=== PATIENT | male | born 1940 ===

== ENCOUNTER 2020-04-08 17:08 | Inpatient (IN) | payer MEDICARE ==
[~2020-04-08] VITALS: Ht 167.6 cm; Wt 66.6 kg
[~2020-04-08 17:08] MED LIST: LEVOFLOXACIN500 MG PO
--- NOTE | 2020-04-08 19:01 | NUR ---
PT ARRIVED TO UNIT FROM MED SURG ACCOMPANIED WITH MEDSUR STAFF. HE IS CONFUSED AND VERY DIFFICULT TO UNDERSTAND. HE IS AGGRESSIVE WITH STAFF AT TIMES. HE IS FROM [place] AND FINDS [place]EN[place] DIFFICULT TO UNDERSTAND. HE IS A FULL CODE. HIS CODE WORD IS 2019. HE IS HIS OWN POA. HE IS VERY UNSTEADY ON HIS FEET.
--- NOTE | 2020-04-08 19:57 | NUR ---
PT IS ANXIOUS AND PACING THE HALLS. HE IS AGGRESSIVE WITH REDIRECTION. UNABLE TO REDIRECT. ADMINISTERED PRN HALDOL 2 MG AND ATIVAN 0.5 MG IM PER ORDERS. MONITORING PT FOR FURTHER SAFETY NEEDS.
[2020-04-08 20:00] VITALS: BP 186/62
--- NOTE | 2020-04-08 20:13 | NUR ---
PT REFUSES TO SIGN CONSENT FOR VOLUNTARY CONSENT FOR TREATMENT. INFORMED DR. FUNEZ. DR. FUNEZ STATED "WE WILL NEED TO PLACE ON INVOLUNTARY HOLD." EDUCATED THE PT.
--- NOTE | 2020-04-08 20:45 | NUR ---
PT IS RESTING CALMLY IN BED WITH EYES CLOSED. NO SIGNS OF DISTRESS NOTED. BED ALARM ON AND WORKING.
[2020-04-08 22:16] LABS: BACTERIA FEW HPF (NONE SEEN); BILIRUBIN NEGATIVE (NEGATIVE); KETONE NEGATIVE (NEGATIVE); NITRITE NEGATIVE (NEGATIVE); UROBILINOGEN NORMAL mg/dL (< 2); WHITE CELLS - URINE 0-5 HPF (0-1)
[2020-04-09 06:40] VITALS: BP 156/65; BMI 21.2
[2020-04-09 07:59] LABS: BASOPHILS 0.3 % (0-2); HEMATOCRIT 39.4 % (42.0-54.0); IMMATURE GRANULOCYTES 0.1 % (0-5); LYMPHOCYTE ABS# 0.86 10x3/uL (1.32-3.57); LYMPHOCYTES 9.2 % (15-50); MCH 30.4 pg (26.0-34.0); MCV 92.3 fL (80.0-100.0); MEAN PLATELET VOLUME 9.1 fL (7.4-10.4); MONOCYTES 7.4 % (2-11); NEUTROPHIL ABS# 7.44 10x3/uL (1.78-5.38); PLATELET COUNT 256 10x3/uL (130-400); RBC 4.27 10x6/uL (4.20-6.10); RDW 13.6 % (11.5-14.5)
[2020-04-09 08:00] LABS: WBC 9.3 10x3/uL (4.8-10.8)
[2020-04-09 08:05] LABS: ALBUMIN 3.1 g/dL (3.4-5.0); ALKALINE PHOSPHATASE 82 U/L (30-120); ALT (SGPT) 21 U/L (10-68); BILIRUBIN - TOTAL 0.52 mg/dL (0.2-1.3); CALC OSMOLALITY 286 mosm/kg (275-300); CARBON DIOXIDE 26.5 mmol/L (21.0-32.0); CHLORIDE - SERUM 107 mmol/L (98-107); CHOL - HDL RATIO 3.2 ratio (2.3-4.9); CHOLESTEROL, TOTAL 191 mg/dL (0-200); GLUCOSE 152 mg/dL (74-106); HDL CHOLESTEROL 59 mg/dL (32-96); LDL CHOLESTEROL 116 mg/dL (0-100); POTASSIUM - SERUM 3.2 mmol/L (3.5-5.1); PROTEIN - SERUM 6.4 g/dL (6.4-8.2); SODIUM 142 mmol/L (136-145); THYROID STIMULATING HORMONE 2.83 uIU/mL (0.36-3.74); TRIGLYCERIDE 83 mg/dL (30-200); UREA NITROGEN 16 mg/dL (7-18); eGFR NON AFRICAN AMERICAN 76 mL/min (90-120)
[2020-04-09 08:57] VITALS: BP 165/68
[2020-04-09 09:14] VITALS: Ht 167.6 cm; Wt 66.6 kg
--- NOTE | 2020-04-09 15:15 | NUR ---
PT IS CONFUSED WITH LANGUAGE BARRIER. PT DOES NOT SPEAK ALOT OF ARMENIAN. PT IS ALERT TO SELF. WHEN ASKED QUESTIONS PT BEGINS TO POINT TO HIS HAND AND TELL WHAT HAPPEN TO HIS HAND. NURSE HAS NOT HEARD PT SPEAK ANOTHER LANGUAGE. ATTEMPT TO REDIRECT PT WITH GESTURES. NO AGIATION OR AGGRESSION NOTED. PT IS UNSTEADY. ASSIST STANDBY WITH ALDS. CAN NOT MAKE NEEDS KNOWN. PT IS COMPLIANT WITH MEDS, VITALS AND ASSESSMENTS. FSBS: 128 MG/DL. NURSE HELD EYE CONTACT WHEN SPEAKING WITH PT. PT COOPERATIVES. CHAIR ALARM IN PLACE AND ACTIVE. WILL CONT PLAN OF CARE.
[2020-04-09 20:05] VITALS: BP 175/75
--- NOTE | 2020-04-09 21:46 | NUR ---
213- PATIENT GIVEN PRN, HALDOL AND ATIVAN FOR EXTREME AGITATION, CRYING, TRYING DESPERATELY TO SAYING SOMETHING BUT NOT ABLE, HE WAS RUBBING HIS ARMS WITH HIS HANDS AND LOOKING AT HIS ARMS, IN HIS ROOM HE WAS LOOKING AT THE WINDOW AND SEEMED VERY NERVOUS. NOT ABLE TO CONSOLE. WILL MONITOR FOR EFFECTIVENESS.
--- NOTE | 2020-04-10 00:43 | NUR ---
B)PATIENT SITTING IN THE DAYROOM. MOTIONS FOR YOU TO COME AND SIT BESIDE HIM. ANXIOUS AND SUSPICIOUS. DOES NOT UNDERSTAND THE REASON HE IS IN HERE. RELATED TO NURSE "I WAS FUCKED BY" BROKEN WELSH AND WAS NOT ABLE TO UNDERSTAND THE COMPLETE SENTENCE. NO INTERACTION WITH PEERS BUT WANTS TO SPEAK WITH EACH STAFF MEMBER. I)ADMINISTER MEDS AND MONITOR COMPLIANCE. REASSURE PATIENT AND REORIENT TO THE REASON FOR HOSPITALIZATION. R)MED COMPLIANT. EXPLAINED TO PATIENT THE REASON FOR HOSPITALIZATION IS UTI AND CONFUSION. AND THAT A UTI CAN MAKE YOU CONFUSED. AFTER THE UTI CLEARS HOPEFULLY THE CONFUSION GETS BETTER. PATIENT THANKED NURSE AGAIN AND AGAIN HOWEVER SOON ANOTHER STAFF MEMBER COMES HE WANTS THEM TO SIT AND TALKT TO HIM AGAIN ABOUT BEING HERE AND THE REASON. REMAINS ANXIOUS AND SUSPICIOUS. P)CONTINUE POC AND PROVIDE SAFE ENVIRONMENT.
[2020-04-10 03:07] LABS: RAPID PLASMA REAGIN Non Reactive (Non Reactive)
[2020-04-10 07:32] VITALS: BP 145/64; BP 160/76
--- NOTE | 2020-04-10 09:19 | PSY ---
PATIENT NAME:ALEJANDRA PURVIS MEDICAL RECORD: [id number] : 38 LOCATION:[facility] ADMISSION DATE: 04/08/20 ACCOUNT: [id number] PSYCHIATRIC EVALUATION DATE OF EVALUATION: 04/09/20 IDENTIFYING DATA: The patient is 80 years old and he is admitted to the hospital on an involuntary basis. CHIEF COMPLAINT: Confusion. HISTORY OF PRESENT ILLNESS: The patient initially presented to the Emergency Department on the of this month. At that time, he was suffering from a urinary tract infection, confusion and he was admitted to the hospital. I consulted on him yesterday and he was delusional, disorganized and agitated. I authorized his transfer to [facility] once medically stabilized and he was transferred here, but demanded to leave. He cannot take care of himself. He has no family and his landlord as I understand is not willing to allow him to return. He was subsequently placed on a hold. He also required medication because he was physically aggressive with our staff. He has no real recollection of this. He will answer questions in Hungarian, but then before he gets to the full explanation or answer of the question, he trails off into unrelated topics and then is frustrated because I cannot understand him. This patient's first language is not Hungarian, but he does have a command of the language and the problem is not linguistic it is cognitive. 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 PAST MEDICAL HISTORY: Significant for diabetes and hypertension. PAST PSYCHIATRIC HISTORY: Denied. FAMILY HISTORY: Unknown. SOCIAL HISTORY: The patient does not drink or use drugs. He smoked when he was younger. I do not know how long he has lived in the [place]. He says that he has an ex- and a son who live in [facility]. MENTAL STATUS EXAMINATION: The patient is awake, alert and oriented to person and place, but not time or situation. His mood is flat. His affect is constricted. Thought processes are circumstantial. Memory, concentration and abstraction abilities are impaired. He denies that he would seek to harm himself or others. He denies psychotic symptoms. ASSESSMENT: AXIS I: Major neurovascular cognitive disorder. AXIS II: None. AXIS III: Hypertension, diabetes, urinary tract infection. AXIS IV: Moderate. AXIS V: Global assessment of functioning is 30. PLAN: At this time, the patient is admitted to the hospital secondary to confused and agitated behavior associated with a dementing illness. He will be comprehensively evaluated and treated with both mood stabilizing and memory enhancing medications. His long-term prognosis is guarded. TRANSINT:[id number] Voice Confirmation ID: [id number] DOCUMENT ID: [id number] ALEJANDRA FUNEZ MD at 0919 CC: [id number] DICTATION DATE: 04/09/20 1058 WINDOW GLASS CUTTER OFF: 04/09/20 1113 ADM IN [facility] [address] [place] [address]
--- NOTE | 2020-04-10 16:21 | NUR ---
ALERT, CALM, COOPERATIVE. CONFUSED. HAS DIFFICULTY UNDERSTANDING STAFF REQUESTS DUE TO LANGUAGE BARRIER. VERY UNSTEADY GAIT. OFTEN ARISES WITHOUT ASSISTANCE, REQUIRING CLOSE MONITORING. MEDS ADMIN PER ORDERS WITH COMPLETE MED COMPLIANCE. CONT PLAN OF CARE.
[2020-04-10 20:00] VITALS: BP 177/73
--- NOTE | 2020-04-10 21:15 | NUR ---
B) RECEIVED IN DAYROOM SITTING IN CHAIR. NO BEHAVIORS NOTED. VERY CONFUSED, ALERT TO SELF ONLY. ABLE TO MAKE NEEDS KNOWN. I) ADMINISTERED SCHEDULED MEDICATIONS ORDERED. REDIRECT NEEDED. R) MEDICATION COMPLIANT. HE ASKED TO TAKE A SHOWER TONIGHT. P) WILL CONTINUE POC AND MONITOR FOR SAFETY.
--- NOTE | 2020-04-10 22:00 | NUR ---
RECHECKED B/P= 149/55
--- NOTE | 2020-04-11 09:57 | PN ---
PATIENT:ALEJANDRA PURVIS MEDICAL RECORD: [id number] LOCATION:[facility] ADMISSION DATE: 04/08/20 PROGRESS NOTE DATE OF SERVICE: 04/10/2020 SUBJECTIVE: The patient's case was discussed with staff. He has no new complaint. OBJECTIVE: The patient was agitated last night and required p.r.n. medication. He has almost no insight about his situation. He is participating in treatment minimally. ASSESSMENT: Dementia. PLAN: I am going to discontinue the patient's Trilafon and we will start him on Zyprexa. He will be monitored for clinical changes associated with its use. TRANSINT:[id number] Voice Confirmation ID: [id number] DOCUMENT ID: [id number] ALEJANDRA FUNEZ MD at 0957 CC: [id number] DICTATION DATE: 04/10/20 1024 FRUIT PICKER: 04/10/20 1054 ADM IN [place] [id number] [place] [id number]
[2020-04-11 10:51] VITALS: BP 152/67
--- NOTE | 2020-04-11 14:42 | NUR ---
pt sitting on couch at this time. pt is calm and cooperative. pt does not speak much grenadian. pt can get agitated with lack of understanding. pt is anxious at times. pt is compliant with meds, vitals and assessments. pt has a skin tear noted to L knee. pt can not make some needs known. pt requires assistance with ADLS. chair alarm in place and active. will cont plan of care.
[2020-04-11 20:00] VITALS: BP 182/78
--- NOTE | 2020-04-12 02:16 | NUR ---
B) patient is alert paige oriented to person, very confused and unable to make his needs known at times, I) Administered scheduled medications as orderd, oriented and redirected as needed. R) Medication compliant, ADL independant. P) Continue plan of care.
[2020-04-12 09:56] VITALS: BP 134/67
--- NOTE | 2020-04-12 10:34 | PN ---
PATIENT:ALEJANDRA PURVIS MEDICAL RECORD: [id number] LOCATION:[facility]112 ADMISSION DATE: 04/08/20 PROGRESS NOTE DATE OF SERVICE: 04/11/2020 SUBJECTIVE: The patient's case was discussed with staff. He has no new complaint. OBJECTIVE: The patient is in good behavioral control. He has not been aggressive. ASSESSMENT: Dementia. PLAN: The patient will be started on Namenda for its memory enhancing properties. He will be monitored for clinical changes associated with its use. TRANSINT:[id number] Voice Confirmation ID: [id number] DOCUMENT ID: [id number] ALEJANDRA FUNEZ MD at 1034 CC: [id number] DICTATION DATE: 04/11/20 1010 DIVISION MERCHANDISE MANAGER: 04/11/20 1403 ADM IN [place] [id number] [place] [id number]
--- NOTE | 2020-04-12 16:07 | NUR ---
ALERT, CALM, CONFUSED, QUITE PLEASANT. NO BEHAVIORAL ISSUES NOTED. MEDS ADMIN PER ORDERS WITH COMPLETE MED COMPLIANCE NOTED. PROPELS SELF IN W/C TO BATHROOM, HOWEVER REQUIRES ASSISTANCE WITH TOILETING HYGIENE. CONT POC PREVIOUSLY OUTLINED.
--- NOTE | 2020-04-12 20:20 | NUR ---
RECEIVED IN DAYROOM. SITTING ON THE SOFA WITH PEERS AT HIS SIDE. CALM AND COOPERATIVE WITH CARE AND ASSESSMENT. CONFUSED. CALM AND COOPERATIVE WITH CARE AND ASSESSMENT. CONTINUES TO SIT CALMLY IN DAYROOM. CONTINUE PLAN OF CARE.
[2020-04-12 21:21] VITALS: BP 132/48
--- NOTE | 2020-04-13 10:17 | NUR ---
Nutrition Follow-up: Diet: Diabetic PO intake: ~94% average x last 9 meals recorded Last BM: 04/13/20. Wt: 144.4# (04/12/20); Admit Wt: 143# (04/08/20) Meds noted: SSI. Labs noted: POC Glu 161(H). Recommend continue current diet. RD will follow-up 04/15/20.
--- NOTE | 2020-04-13 13:13 | NUR ---
ORIENTED TO SELF WITH CONFUSION.COMPLIANT WITH STAFF AND MEDS.CAN WALK WITH UNSTEADY GAIT,PROPELLS SELF IN WHEELCHAIR. ORDERED XR OF GROWTH ON LUMBAR AREA,XR DONE,NO RESULTS AT THIS TIME.WILL CONTINUE WITH CURRENT PLAN OF CARE,MONITOR FOR CHANGES AND SAFETY.
--- NOTE | 2020-04-13 14:58 | NUR ---
VISITS.PATIENT STATES HE WANTS TO STAY IN THE HOSPITAL AND BE HELPED WITH HIS PROBLEMS.
--- NOTE | 2020-04-13 15:28 | PN ---
PATIENT:ALEJANDRA PURVIS MEDICAL RECORD: [id number] LOCATION:[facility] ADMISSION DATE: 04/08/20 PROGRESS NOTE DATE OF SERVICE: 04/12/2020 SUBJECTIVE: The patient's case was discussed with staff. He has no new complaint. OBJECTIVE: The patient is in good behavioral control, but seriously and significantly impaired cognitively. He has limited insight about his situation. ASSESSMENT: Dementia. PLAN: Current medicines and therapies have been reviewed. His long-term prognosis is guarded. It appears clear that he cannot live alone. TRANSINT:[id number] Voice Confirmation ID: [id number] DOCUMENT ID: [id number] ALEJANDRA FUNEZ MD at 1528 CC: [id number] DICTATION DATE: 04/12/20 1136 FUR WEIGHER: 04/12/20 1539 ADM IN [place] [id number] [place] [address]
--- NOTE | 2020-04-13 20:08 | NUR ---
RECEIVED IN DAYROOM. SITTING ON THE SOFA WITH PEERS AT HIS SIDE. CALM AND COOPERATIVE WITH CARE AND ASSESSMENT. CONFUSED. REDIRECT AND REORIENT NEEDED. CONTINUES TO SIT CALMLY IN DAYROOM. CONTINUE PLAN OF CARE.
[2020-04-13 20:33] VITALS: BP 158/64
[2020-04-14 08:00] VITALS: BP 148/67
--- NOTE | 2020-04-14 10:15 | NUR ---
PT GAVE DR. FUNEZ VERBAL CONSENT FOR TREATMENT AND FOR PSYCHOTIC MEDICATION ADJUSTMENT IF NEEDED. HE AGREES TO STAY AND BE TREATED BY DR. FUNEZ. VOLUNTARY ADMISSION PAPERWORK WAS SIGNED AND UPDATED IN THE CHART.
--- NOTE | 2020-04-14 12:14 | NUR ---
ALERT, CALM, COOPERATIVE, QUIET, QUITE PLEASANT. MEDS ADMIN PER ORDERS WITH COMPLETE MED COMPLIANCE NOTED. TAKES MEDS WHOLE. APPETITE GOOD. CONT POC DIRECTED.
--- NOTE | 2020-04-14 14:15 | PN ---
PATIENT:ALEJANDRA PURVIS MEDICAL RECORD: [id number] LOCATION:[facility]112 ADMISSION DATE: 04/08/20 PROGRESS NOTE DATE OF SERVICE: 04/13/2020 SUBJECTIVE: The patient's case was discussed with staff. He has no new complaint. OBJECTIVE: The patient is in good behavioral control with limited insight about his situation. ASSESSMENT: Dementia. PLAN: Current medicines have been reviewed and will be maintained. The patient continues to have some significant level of suspicion. I am treating him with a scheduled dose of Geodon and it does seem to have helped some. TRANSINT:[id number] Voice Confirmation ID: [id number] DOCUMENT ID: [id number] ALEJANDRA FUNEZ MD at 1415 CC: [id number] DICTATION DATE: 04/13/20 1634 CAMERA SYSTEMS ENGINEER: 04/13/20 191 ADM IN [facility] [address] [place] [address]
[2020-04-14 20:00] VITALS: BP 144/80
--- NOTE | 2020-04-15 04:19 | NUR ---
B)RECEIVED PATIENT SITTING IN THE DAYROOM. ORIENTED TO SELF ONLY. DOES NOT INTERACT WITH PEERS HOWEVER IS PLEASANT AND APPROPRIATE TOWARD STAFF. I)ADMINISTER MEDS AND MONITOR COMPLIANCE. REORIENT NEEDED. R)MED COMPLIANT. POOR REORIENTATION. DOES NOT APPEAR TO COMPREHEND OR PROCESS THE INFORMATION. P)CONTINUE POC AND PROVIDE SAFE ENVIRONMENT.
[2020-04-15 12:57] VITALS: BP 140/89
--- NOTE | 2020-04-15 14:09 | NUR ---
Nutrition Follow-up: Eating well. Diet: Diabetic PO intake: 92% avg x 9 meals Wt: 144.4# (04/12); 143# (04/08) Labs reviewed Meds noted: Yoni Petty vit D -RD follow-up: 04/22
--- NOTE | 2020-04-15 14:39 | PN ---
PATIENT:ALEJANDRA PURVIS MEDICAL RECORD: [id number] LOCATION:[facility] ADMISSION DATE: 04/08/20 PROGRESS NOTE DATE OF SERVICE: 04/14/2020 SUBJECTIVE: The patient's case was discussed with staff. He has no new complaint. OBJECTIVE: The patient is in good behavioral control, but appears to be a little sedated. ASSESSMENT: Dementia. PLAN: The Geodon the patient is taking will be reduced by 50%. He has poor insight about his behaviors and need for placement. He has no family here. He has spoken to a woman from a [facility] and he seems to be interested in going there. TRANSINT:[id number] Voice Confirmation ID: [id number] DOCUMENT ID: [id number] ALEJANRDA FUNEZ MD at 1439 CC: [id number] DICTATION DATE: 04/14/20 1553 POLICE SUPERINTENDENT: 04/14/20 2301 ADM IN [facility] [address] [place] [address]
--- NOTE | 2020-04-15 15:42 | NUR ---
PT SPOKE WITH MISS MEDRANO TODAY IN EKWOK LANGUAGE. PT STATED PER HER THE HELICOPTER AND HE INIMATED THE HELICOPTER WAS COMING TO DEPORT HIM BACK TO HIS OWN COUNTRY. PT WAS PARANOID ABOUT THE ZORAN-PAD. NURSE ATTEMPTED TO REDIRECT PT BEHAVIOR. UNABLE TO DO SO AT TIME.
--- NOTE | 2020-04-15 16:48 | NUR ---
Rec'd patient up in a w/c this am. He can self propel himself but has very little recall with W/C safty measures. He can cannot recall any given instructions. He is A/O times 1 to person. He is calm and cooperative. He takes his meds whole. Patient has a difficult time relaxing and sitting still. He can be up and down. He had no assessed behaviors. He participated a little in group and activties today.
[2020-04-15 20:00] VITALS: BP 169/55
--- NOTE | 2020-04-16 01:02 | NUR ---
B) Patient is alert and oriented to person, very confused and unable to commuicate in Swazi at times, parinoid and mistrustful. I) Administered scheduled medications as ordered, monitored for safety R) Mediations compliant, sleeping now quietly P) Continue plan of care.
--- NOTE | 2020-04-16 11:50 | NUR ---
The patient is in a w/c, he self propels. He needs assistance to toilet, helped him this am and he defacated in his brief, it was loose, let the charge nurse know. He doesn't speak Colombian well, but he understands. Provide prescribed meds. The patient is compliant with meds. lacrosse coach stated he is paranoid about the helicopters, but he has not made any comments about paranoia today. He has poor insight into his situation. Continue POC.
--- NOTE | 2020-04-16 14:51 | PN ---
PATIENT:ALEJANDRA PURVIS MEDICAL RECORD: [id number] LOCATION:[facility]112 ADMISSION DATE: 04/08/20 PROGRESS NOTE DATE OF SERVICE: 04/15/2020 SUBJECTIVE: The patient's case was discussed with staff. He has no new complaint. He is more awake today. ASSESSMENT: Dementia. PLAN: The patient is rambling and at times incoherent in Croatian. A woman who speaks Thai was here and visited with him and she said that in [place] he is saying some things that sound delusional about guns or helicopters and someone being after him and it really does not make sense. He is not making good sense in Croatian either. I am not sure that it is delusional, but he is from [place] and I know he is accustomed to being frightened of others and authority and really suspect that part of that is what he is experiencing in retrospect now that he is demented. He is going to require 24-hour a day supervision. What is unclear is which setting would be the least restrictive. TRANSINT:[id number] Voice Confirmation ID: [id number] DOCUMENT ID: [id number] ALEJANDRA FUNEZ MD at 1451 CC: [id number] DICTATION DATE: 04/15/20 1622 SURGICAL TECHNOLOGY INSTRUCTOR: 04/16/20 0002 ADM IN [facility] [address] [place] [address]
[2020-04-16 20:00] VITALS: BP 145/36
--- NOTE | 2020-04-16 23:38 | NUR ---
B) Patient is alert and oriented to self, cooperative, became overly concerned about the time on his room clock being wrong. I) Administered scheduled medications as ordered, monitored for safety R) Mediationc compliant, sleeping in his room quietly P) Continue plan of care.
[2020-04-17 10:39] VITALS: BP 125/44
--- NOTE | 2020-04-17 10:42 | NUR ---
The patient is pleasant and calm, he is in a w/c and self propels. He is able to transfer independently. He had a bowel movement in his pants and he was so embarrassed. Staff assisted him to the bathroom and cleaned him up. He is lying on the couch at this time. Provide prescribed meds. The patient is compliant with meds. He has poor insight into his situation. Continue POC.
--- NOTE | 2020-04-17 14:57 | PN ---
PATIENT:ALEJANDRA PURVIS MEDICAL RECORD: [id number] LOCATION:[facility]112 ADMISSION DATE: 04/08/20 PROGRESS NOTE DATE OF SERVICE: 04/16/2020 SUBJECTIVE: The patient's case was discussed with staff. He has no new complaint. OBJECTIVE: The patient is pleasant and cooperative. He has had no behavior problems. I have asked about psychotic symptoms, I am not sure he fully understands that, but he has denied them. ASSESSMENT: Dementia. PLAN: The patient is going to be transitioned out of the hospital soon. He is going to go to a senior care that is actually operated by a Monegasque woman so there will be someone there that can communicate with him effectively. TRANSINT:[id number] Voice Confirmation ID: [id number] DOCUMENT ID: [id number] ALEJANDRA FUNEZ MD at 1457 CC: [id number] DICTATION DATE: 04/16/20 1520 DIRECTOR PHARMACEUTICAL: 04/17/20 0007 ADM IN [facility] [address] [place] [id number]
--- NOTE | 2020-04-17 19:48 | NUR ---
RECEIVED IN DAYROOM. SITTING IN A CHAIR WITH PEERS AT HIS SIDE. CALM AND COOPERATIVE WITH CARE AND ASSESSMENT. CONFUSED. DEMANDING AT TIMES. REDIRECT AND REORIENT NEEDED. CONTINUES TO SIT CALMLY IN DAYROOM. CONTINUE PLAN OF CARE.
[2020-04-17 20:12] VITALS: BP 174/59
--- NOTE | 2020-04-18 09:02 | NUR ---
lisinpril held this am as BP in low range. 113/41
[2020-04-18 09:35] VITALS: BP 113/41
--- NOTE | 2020-04-18 15:19 | NUR ---
The patient is calm and he is pleasant. He has not shown any aggression, he has a difficult time communicating at times, but he has not lost his patience or temper. He tries to ambulate behind his w/c, he needs to be reminded to sit in the chair. Provide prescribed meds. The patient is compliant with meds. He has poor insight into his situation. Continue POC.
[2020-04-18 20:00] VITALS: BP 150/54
--- NOTE | 2020-04-18 21:52 | NUR ---
PT IS ALERT AND ORIENTED TO SELF ONLY. HE HAS A HARD TIME UNDERSTANDING REQUESTS MADE OF HIM. HE IS OBSERVED MAKING JOKES WITH STAFF. USES A WHEELCHAIR TO ASSIST WITH AMBUALTION. COMPLIANT WITH ALL MEDICATIONS. EASY TO REDIRECT.
[2020-04-19 08:57] VITALS: BP 107/67
--- NOTE | 2020-04-19 14:08 | NUR ---
ALERT, CALM, COOPERATIVE, CONFUSED, UNSTEADY GAIT, REQUIRES OCCAIONAL REMINDERS TO NOT AMBULATE UNASSISTED. MEDS ADMIN PER ORDERS WITH COMPLETE MED COMPLIANCE NOTED. PLEASANT MOOD. CONTINUE PLAN OF CARE.
--- NOTE | 2020-04-19 19:48 | NUR ---
RECEIVED IN DAYROOM. SITTING IN A CHAIR WITH PEERS AT HIS SIDE. CALM AND COOPERATIVE WITH CARE AND ASSESSMENT. CONFUSED. REDIRECT AND REORIENT NEEDED. CONTINUES TO SIT CALMLY IN DAYROOM. CONTINUE PLAN OF CARE.
[2020-04-19 20:19] VITALS: BP 101/69
[2020-04-20 08:48] VITALS: BP 163/40
--- NOTE | 2020-04-20 14:47 | NUR ---
ORIENTED TO SELF WITH CONFUSION.IS COMPLIANT WITH STAFF AND MEDS.PROPELLS SELF IN WHEELCHAIR.CAN TRANSFER SELF BUT IS TOO UNSTEADY TO AMBULATE WITHOUT ASSIST.WILL CONTINUE WITH CURRENT PLAN OF CARE,MONITOR FOR CHANGES AND SAFETY.
[2020-04-20 20:21] VITALS: BP 115/74
--- NOTE | 2020-04-20 20:47 | NUR ---
RECEIVED IN DAYROOM. SITTING ON THE SOFA WITH PEERS CLOSED. SMILED AND WAVED AT THIS NURSE WHEN HE CAME INTO ROOM. CALM AND COOPERATIVE WITH CARE AND ASSESSMENT. IN GOOD SPIRITS. REDIRECT AND REORIENT NEEDED. CONTINUES TO SIT CALMLY IN DAYROOM. CONTINUE PLAN OF CARE.
[2020-04-21 10:44] VITALS: BP 119/65
--- NOTE | 2020-04-21 14:25 | PN ---
PATIENT:ALEJANDRA PURVIS MEDICAL RECORD: [id number] LOCATION:[facility]112 ADMISSION DATE: 04/08/20 PROGRESS NOTE DATE OF SERVICE: 04/20/2020 SUBJECTIVE: The patient's case was discussed with staff. He has no new complaint. OBJECTIVE: The patient is in good behavioral control with limited insight about his situation. He is somewhat paranoid, but certainly not disruptive in any appreciable degree. He was sleeping when I came to see him today, but since has aroused and in talking with the nursing staff, they indicate that he was just napping in the afternoon and has not been over sedated in any way. ASSESSMENT: Dementia. PLAN: Hopefully, the patient can be transitioned out of the hospital and to the skilled nursing this week. TRANSINT:[id number] Voice Confirmation ID: [id number] DOCUMENT ID: [id number] ALEJANDRA FUNEZ MD at 1425 CC: [id number] DICTATION DATE: 04/20/20 1633 REGULATORY SUBMISSIONS ASSOCIATE: 04/21/20 0235 ADM IN [facility] [address] [place] [address]
--- NOTE | 2020-04-21 15:09 | NUR ---
ORIENTED TO SELF.SPEAKS BROKEN TURKMEN BUT MAKES NEEDS KNOWN. .COMPLIANT WITH STAFF AND MEDS.PROPELLS SELF IN WHEELCHAIR.NO ADVERSE BEHAVIOR OBSERVED.WILL CONTINUE WITH CURRENT PLAN OF CARE,MONITOR FOR CHANGES AND SAFETY.
--- NOTE | 2020-04-21 19:54 | NUR ---
RECEIVED IN DAYROOM. LAYING ON THE SOFA WITH EYES CLOSED. RESPONDS TO VOICE. CALM AND COOPERATIVE WITH CARE AND ASSESSMENT. CONFUSED BUT IN GOOD SPIRITS. REDIRECT AND REORIENT NEEDED. CONTINUES TO REST QUIETLY ON SOFA. CONTINUE PLAN OF CARE.
[2020-04-21 20:00] VITALS: BP 138/57
[2020-04-22 09:31] VITALS: BP 137/54
--- NOTE | 2020-04-22 13:09 | NUR ---
silk worker spoke with patient and he agreed to go to [facility] place. Lisette came to visit him today and speaks his zuni language. Patient does not have any family or income to support assisted living. Patient stated this was his first choice to go to [facility]. Patient will discharge tomorrow at 11. Lisette stated she would make him a new patient appointment for PCP and set up a pharmacy for patient.Patient declined outpatient services at this time. Patient voiced understanding of discharge for tomorrow and stated he is excited to go to a [facility] home.
--- NOTE | 2020-04-22 14:01 | NUR ---
At approx. 1230, patient came out of the dining room with his voice tone elevated and rambling about discharge, or going home, or something private? It is difficult to understand patient due to his [employer] language and when he is irritated. Many attempts to redirected provided by staff and attempts for his to clarify what he is asking of staff. Patient continued to become irritated and with elevated voice tone and pointing to different staff. Patient finally found a sofa in the dayroom and layed down and fell off to sleep.
--- NOTE | 2020-04-22 14:31 | PN ---
PATIENT:ALEJANDRA PURVIS MEDICAL RECORD: [id number] LOCATION:[facility] ADMISSION DATE: 04/08/20 PROGRESS NOTE DATE OF SERVICE: 04/21/2020 SUBJECTIVE: The patient's case was discussed with staff. He has no new complaint. OBJECTIVE: The patient denies that he would seek to harm himself or others. He is making a number of statements that are poorly connected. He has not been aggressive. He is eating and sleeping well. ASSESSMENT: Dementia. PLAN: Current medicines have been reviewed and will be maintained. I believe he can be transitioned to the prison setting soon. TRANSINT:[id number] Voice Confirmation ID: [id number] DOCUMENT ID: [id number] ALEJANDRA FUNEZ MD at 1431 CC: [id number] DICTATION DATE: 04/21/20 170 ABORIGINAL EDUCATION TEACHER: 04/22/20 0110 ADM IN [facility] [address] [place] [address]
--- NOTE | 2020-04-22 14:41 | NUR ---
Nutrition Follow-up: Diet: Diabetic PO intake: 75-100% x last 9 meals Last BM: 04/21/20. Wt: 147.6# (04/19/20); Admit Wt: 143# (04/08/20) Meds noted: SSI. Labs noted: POC Glu 154(H) Recommend continue current diet. RD will follow-up within 7 days.
[2020-04-22] MEDS ORDERED: LISINOPRIL10 MG PO (15:43)
[2020-04-22] MEDS ORDERED: NAMENDA5 MG PO (15:44)
[2020-04-22] MEDS ORDERED: VITAMIN D PO (15:44)
[2020-04-22] MEDS ORDERED: LIPITOR10 MG PO (15:44)
[2020-04-22] MEDS ORDERED: GEODON20 MG PO (15:44)
[2020-04-22 20:00] VITALS: BP 145/72
--- NOTE | 2020-04-23 00:27 | NUR ---
B)RECEIVED PATIENT SITTING IN THE HALLWAY WITH HIS PEERS. CONFUSED AND DISORIENTED. PLEASANT AND COOPERATIVE. APPRECIATIVE FOR ANYTHING THAT IS DONE FOR HIM. PATIENT KEPT THANKING THE [facility] AFTER HIS SHOWER. SMILING AN HAPPY. I)ADMINISTER MEDS AND MONITOR COMPLIANCE. REORIENT NEEDED. R)MED COMPLIANT. POOR REORIENTATION. PT RELATES TO NURSE HE CAN NOT REMEMBER THINGS. P)CONTINUE POC AND PROVIDE SAFE ENVIRONMENT.
[2020-04-23 09:47] VITALS: BP 116/67
--- NOTE | 2020-04-23 11:17 | NUR ---
PT WAS TO DISCHARGE WITH [facility] THIS SHIFT. PT WAS CALM AND COOPERATIVE UNTIL PT SAW [facility]. PT REFUSED TO GO SCREAMING "NO NO" IN PT COULD NOT EXPLAIN WHY HE DID NOT WANT TO GO. PT REFUSED TO SPEAK TO MISS MEDRANO AND NURSE ABOUT REFUSAL. STAFF ATTEMPTED TO INQUIRY ABOUT WHY PT WOULD NOT GO WITH [facility] AT DISCHARGE. PT COULD NOT EXPRESS REFUSAL AND BEGIN TO ROLL UP ON STAFF IN W/C AND RAISING HANDS YELLING "NO NO NO" PT ATTEMPTED TO EXPLAIN SELF. UNABLE TO EXPLAIN AT THIS TIME. PT REFUSED TO DISCHARGE AT THIS TIME. NOTIFIED RANDY Moreland UTILITY TECH OF REFUSAL TO DISCHARGE.
--- NOTE | 2020-04-23 13:29 | PN ---
PATIENT:ALEJANDRA PURVIS MEDICAL RECORD: [id number] LOCATION:[facility] ADMISSION DATE: 04/08/20 PROGRESS NOTE DATE OF SERVICE: 04/22/2020 SUBJECTIVE: The patient's case was discussed with staff. He has no new complaint. OBJECTIVE: The patient denies that he would seek to harm himself or others. He is tolerating his medicines well. ASSESSMENT: Dementia. PLAN: The patient will be transitioned out of the hospital tomorrow. He is going to go to a care home operated by a [place] couple. Apparently, they have interviewed him, he is willing to go and that is probably a very good placement for him. TRANSINT:[id number] Voice Confirmation ID: [id number] DOCUMENT ID: [id number] ALEJANDRA FUNEZ MD at 1329 CC: [id number] DICTATION DATE: 04/22/20 1543 NEUROPSYCHIATRIC AIDE: 04/22/20 2311 ADM IN [facility] [id number] [place] [address]
--- NOTE | 2020-04-23 16:49 | NUR ---
Rec'd this am up in a W/C. He can self propel with his feet. He is A/O person, and situation, He does have s0me confusion at times. He is difficult to assess with his confusion and language barrier. He became upset this am when his transport facility came to get him. He began to yell at the lady and point his finger at her and it was very difficult to understand what he was saying to her. He did not DC but remained here at the unit. He has sat on the dayroom sofa and had his eyes closed most of the day. He has not participated in any activities or groups today. Staff will continue to encourage him to become involved in activities and redirect and offer positive feedback when he participates.
--- NOTE | 2020-04-23 18:35 | NUR ---
NURSE ASSISTED PT WITH TOILETING. PT SAT ON TOILET WITH BRIEF ON AND GOT UPSET WHEN HE COULD NOT GET OFF THE BRIEF OFF. NURSE DIRECTED PT AT THAT TIME.
[2020-04-23 20:00] VITALS: BP 135/54
--- NOTE | 2020-04-23 20:50 | NUR ---
PT IS ALERT AND ORIENTED TO SELF AND SITUATION. HE IS RECEIVED OUTSIDE THE NURSES STATION IN THE HALLWAY IN A WHEELCHAIR. HE IS CALM AND COOPERATIVE WITH STAFF. COMPLIANT WITH ALL MEDICATIONS. EASY TO REDIRECT.
[2020-04-24 08:09] VITALS: BP 129/60
--- NOTE | 2020-04-24 12:44 | NUR ---
The patient is calm and pleasant, he has not shown any aggression today and he has not shown any agitation. He is calm and he self propels in a w/c. He ambulates for short distances. Dr. Gibbons asked him if he wanted to go to [facility] and he again said "No" He said he likes it here and wants to stay here. Provide prescribed meds. The patient is compliant with meds. Continue POC.
[2020-04-24 20:00] VITALS: BP 145/47; BP 99/48
--- NOTE | 2020-04-24 22:51 | NUR ---
RECEIVED PATIENT IN DAYROOM IN WHEELCHAIR, SITTING CALMLY, NO AGGRESSION, CONFUSED, COMPLIANT WITH MEDS. NO ADVERSE REACTION NOTED. WILL FOLLOW POC
[2020-04-25 14:36] VITALS: BP 141/33
--- NOTE | 2020-04-25 17:19 | NUR ---
PT SITITNG ON COUCH AT THIS TIME. PT IS CALM AND COOPERATIVE WITH STAFF. COMPLIANT WITH MEDS, VITALS AND ASSESSMENTS. NO BEHAVIORS NOTED. CAN MAKE SOME NEEDS KNOWN. PT CAN SELF TOILET. PROPELLS SELF. WILL CONT PLAN OF CARE.
[2020-04-25 20:00] VITALS: BP 113/74
--- NOTE | 2020-04-25 20:20 | NUR ---
RECEIVED IN DAYROOM SITTING ON SOFA, CONFUSED, WITH NO AGGRESSIVE BEHAVIOR NOTED. CALM AND COOPERATIVE WITH ASSESSMENT. WILL CONTINUE TO MONITOR.
[2020-04-26 10:34] VITALS: BP 100/52
--- NOTE | 2020-04-26 18:02 | NUR ---
RECEIVED PATIENT SITTING IN WHEELCHAIR BY NURSES STATION. AWAKE AND ALERT TO PERSON ONLY. CALM AND COOPERATIVE WITH ASSESSMENT. PRESCRIBED MEDICATIONS PROVIDED ORDERED. MED COMPLIANT. NO BEHAVIORS NOTED. FALL PRECAUTIONS IN PLACE FOR SAFETY. WILL CPOC.
[2020-04-26 19:00] VITALS: BP 153/66
--- NOTE | 2020-04-26 21:37 | NUR ---
B)RECEIVED PATIENT LYING IN BED AWAKE. CONFUSED AND DISORIENTED. CALM AND COOPERATIVE. WITHDRAWN AND DOES NOT INTERACT WITH PEERS. APPROPRIATE WITH STAFF. I)ADMINISTER MEDS AND MONITOR COMPLIANCE. REORIENT NEEDED. R)MED COMPLIANT. POOR REORIENTATION RELATED TO IMPAIRED ABILITY TO REATAIN INFORMATION. P)CONTINUE POC AND PROVIDE SAFE ENVIRONMENT.
[2020-04-27 08:00] VITALS: BP 136/47
--- NOTE | 2020-04-27 14:27 | PN ---
PATIENT:ALEJANDRA PURVIS MEDICAL RECORD: [id number] LOCATION:[facility] ADMISSION DATE: 04/08/20 PROGRESS NOTE DATE OF SERVICE: 04/23/2020 SUBJECTIVE: The patient's case was discussed with staff. He has no new complaint. OBJECTIVE: The patient was scheduled for discharge today when the Japanese woman that he has been talking with showed up to transport him. He had a behavioral outburst. It was delusional and agitated and the discharge was canceled. ASSESSMENT: Dementia. PLAN: I have discussed the situation with the treatment team and we are going to report this to adult protective services. They already have an open case with him. If we cannot convince him to go to the assisted living center then it would appear that [facility] would be the least restrictive environment available to him. This is unfortunate since I thought that the long term placement was a good setting for him. TRANSINT:[id number] Voice Confirmation ID: [id number] DOCUMENT ID: [id number] ALEJANDRA FUNEZ MD at 1427 CC: [id number] DICTATION DATE: 04/23/20 1546 SUPERVISOR FRONT: 04/23/202002 ADM IN [facility] [address] [place] [address]
--- NOTE | 2020-04-27 14:34 | NUR ---
ALERT, CALM, CONFUSED, COOPERATIVE. ORIENTED TO PERSON. MEDS ADMIN PER ORDERS WITH COMPLETE MED COMPLIANCE NOTED. TAKES MEDS WHOLE WITHOUT DIFFICULTY. CONT POC OUTLINED.
--- NOTE | 2020-04-27 20:20 | NUR ---
RECEIVED IN DAYROOM. SITTING IN A CHAIR WITH PEERS AT HIS SIDE. CONFUSED. REDIRECT AND REORIENT NEEDED. CONTINUES TO SIT QUIETLY IN DAYROOM. CONTINUE PLAN OF CARE.
[2020-04-27 20:45] VITALS: BP 154/63
[2020-04-28 08:00] VITALS: BP 107/56
--- NOTE | 2020-04-28 14:22 | PN ---
PATIENT:ALEJANDRA PURVIS MEDICAL RECORD: [id number] LOCATION:[facility] ADMISSION DATE: 04/08/20 PROGRESS NOTE DATE OF SERVICE: 04/27/2020 SUBJECTIVE: The patient's case was discussed with staff. He has no new complaint. OBJECTIVE: The patient is partially oriented. He has poor insight about his situation. He is eating and sleeping well. ASSESSMENT: Dementia. PLAN: Current medicines have been reviewed and will be maintained. He can be discharged as soon as placement is arranged. TRANSINT:[id number] Voice Confirmation ID: [id number] DOCUMENT ID: [id number] ALEJANDRA FUNEZ MD at 1422 CC: [id number] DICTATION DATE: 04/27/20 1654 REMOTE SENSING PROGRAM MANAGER: 04/28/20 0058 ADM IN [facility] [id number] [place] [address]
--- NOTE | 2020-04-28 15:57 | NUR ---
Rec'd Patient this am up in a w/c . He is A/O times 1 to person. He is calm and cooperative. He takes his meds whole. No behaviors and prn meds required this day. He has participated in group/activities today minimally. He is planned for DC tomorrow. Discussion with him today in preperation of discharge. change from one envirnment to another.
--- NOTE | 2020-04-28 19:30 | NUR ---
RECEIVED IN DAYROOM. SITTING IN A CHAIR WITH PEERS AT HIS SIDE. IN GOOD SPIRITS. CALM AND COOPERATIVE WITH CARE AND ASSESSMENT. CONFUSED. REDIRECT AND REORIENT NEEDED. CONTINUES TO SIT CALMLY IN DAYROOM. CONTINUE PLAN OF CARE.
[2020-04-28 20:32] VITALS: BP 160/58
[2020-04-29 09:23] VITALS: BP 137/54
--- NOTE | 2020-04-29 10:52 | NUR ---
Nutrition Follow-up: Diet: Diabetic PO intake: 100% x last 9 meals Last BM: 04/28/20 x 2. Wt: 151.2# (04/26/20); Admit Wt: 143# (04/08/20) Meds noted: SSI. Labs noted: POC Glu 153(H) Recommend continue current diet. RD will follow-up within 7 days.
--- NOTE | 2020-04-29 12:42 | NUR ---
NURSE CALLED NEW PRESCRIPTIONS INTO [address] ALL MEDICATIONS CONFIRMED WITH PHARMACIST.
--- NOTE | 2020-04-29 12:47 | NUR ---
Patient rec'd this am up in w/c. He had been self propelling himself with his feet. He is A/O times 1 to person. He took his meds whole without difficulty. He attended group/activities with minimal participation this am. He is scheduled to discharge this afternoon but due to his high anxiety with DC plans to leave hospitial, MD request for patient to have Haldol and Ativan IM given prior to discharge. Today patient is cooperative and after explaining the need for injection, he is fully acceptable for med. Today, he has shown no behaviors, no anger or aggression. He has been fully cooperative with any care..
--- NOTE | 2020-04-29 14:12 | PN ---
PATIENT:ALEJANDRA PURVIS MEDICAL RECORD: [id number] LOCATION:[facility] ADMISSION DATE: 04/08/20 PROGRESS NOTE DATE OF SERVICE: 04/28/2020 SUBJECTIVE: The patient's case was discussed with staff. He has no new complaint. OBJECTIVE: The patient is in good behavioral control, but impaired cognitively. Adult protective services is going to take custody of him if he refuses the placement at the long-term. He will be discharged tomorrow. I have spoken with him about the circumstances and the importance of going to the long-term. I am cautiously optimistic that he will accept the placement since the alternative will be a more restrictive environment. TRANSINT:[id number] Voice Confirmation ID: [id number] DOCUMENT ID: [id number] ALEJANDRA FUNEZ MD at 1412 CC: [id number] DICTATION DATE: 04/28/20 1629 SUPERVISOR TELEPHONE CLERKS: 04/29/20 0102 ADM IN [facility] [address] [place] [address]
--- NOTE | 2020-04-29 14:30 | NUR ---
PT WAS DISCHARGING TO [facility] PLACE THIS SHIFT. PT ALLOWED STAFF 2X TO ASSIST PT INTO CAR. NURSE WENT INTO BUILDING AND NOTED THAT PT GOT OUT OF THE CAR IN THE PARKING LOT AND WALKED BACK INTO THE DOUBLE DOORS AND STARTED YELLING AND YANKING ON THE DOORS OF THE BUILDING. NURSE ATTEMPTED TO SPEAK WITH PT ABOUT WHAT WAS WRONG. PT DID NOT UNDERSTAND WHAT NURSE WAS ASKING. NURSE CASING SOAKER NOTIFIED AND PT LET BACK INTO THE BUILDING. PT WAS FRANTIC YELLING AND UNABLE TO EXPLAIN TO STAFF REASON FOR NOT WANTING TO D/C WITH [facility]. PT CONT TO YELL OUT DURING INTERACTION. NURSE UNABLE TO DETERMINE REASON FOR PT REFUSING TO DISCHARGE AT THIS TIME. APS NOTIFIED OF PT REFUSAL.
--- NOTE | 2020-04-29 15:59 | NUR ---
Staff from "[facility]" came to get patient for discharge and he was escorted to the outside door and then became very angry and told the staff member and hospital staff that he was not going to discharge with this gentleman. Patient has sat on sofa this afternoon and has had his eyes closed. He has been very quite, sleepy, calm and cooperative this afternoon.
[2020-04-29 20:00] VITALS: BP 145/80
--- NOTE | 2020-04-30 04:50 | NUR ---
RECEIVED PATIENT IN DAYROOM SITTING IN WHEELCHAIR CALMLY, PLEASANT, HE IS HARD TO UNDERSTAND (ACCENT). COMPLIANT WITH MEDS, NO ADVERSE REACTION NOTED. WILL FOLLOW POC
[2020-04-30 09:19] VITALS: BP 150/47
--- NOTE | 2020-04-30 14:19 | PN ---
PATIENT:ALEJANDRA PURVIS MEDICAL RECORD: [id number] LOCATION:[facility] ADMISSION DATE: 04/08/20 PROGRESS NOTE DATE OF SERVICE: 04/29/2020 SUBJECTIVE: The patient's case was discussed with staff. He has no new complaint. OBJECTIVE: The patient is in good behavioral control. He denies intent to harm himself or others. He tolerates his medicines well. Unfortunately, he refused the discharge today and became agitated. ASSESSMENT: Dementia. PLAN: The patient is going to be placed in a senior living under APS custody. I think this is unfortunate, but there does not appear to be a reasonable alternative. TRANSINT:[id number] Voice Confirmation ID: [id number] DOCUMENT ID: [id number] ALEJANDRA FUNEZ MD at 1419 CC: [id number] DICTATION DATE: 04/29/20 1627 SENIOR CATEGORY MANAGER: 04/30/20 0128 ADM IN [facility] [address] [place] [address]
--- NOTE | 2020-04-30 17:10 | NUR ---
ORIENTED TO SELF ONLY.ISOLATES.CALM AND COOPERATIVE WITH STAFF AND MEDS.WILL CONTINUE WITH CURRENT PLAN OF CARE,MONITOR FOR CHANGES AND SAFETY.
[2020-04-30 20:00] VITALS: BP 160/49
--- NOTE | 2020-05-01 01:24 | NUR ---
RECEIVED PATIENT IN DAYROOM, HE IS PLEASANT, THANKFUL AND GRATEFUL. COMPLIANT WITH MEDS. WILL FOLLOW POC
--- NOTE | 2020-05-01 11:18 | NUR ---
UPDATE ON DISCHARGE PLANS. PT HAS REFUSED TO GO TO [facility]. APS TYREL WANTED TO DO LAST ATTEMPT BEFORE TAKING CUSTODY. HE IS IN THE PROCESS OF TAKING CUSTODY OF PT NOW. SW HAS REFERRED PT TO [facility] DUE TO SECURE UNIT AND THEIR ABILITY TO HANDLE PT'S INTERMITTENT BEHAVIORS. [facility] HAS BEEN COMPLETED AND SENT IN. WAITING ON COURT HEARING NEXT WEEK.
--- NOTE | 2020-05-01 11:44 | NUR ---
The patient is awake and alert, he is pleasant and calm. He is watching others. He denies SI or HI, he is not suicidal. he told Dr. Gibbons he is willing to go to the residential. He self propels in a w/c. He toilets and feeds himself. provide prescribed meds. The patient is compliant with meds. Continue POC.
[2020-05-01 12:46] VITALS: BP 142/65
--- NOTE | 2020-05-01 23:18 | NUR ---
PT IS ALERT AND ORIENTED TO SELF AND SITUATION. HE IS RECEIVED IN A WHEELCHAIR IN THE DAYROOM. HE IS CALM AND COOPERATIVE WITH STAFF. COMPLIANT WITH ALL MEDICATIONS. EASY TO REDIRECT. REFUSES A SHOWER TONITE. MONITOR FOR SAFETY.
--- NOTE | 2020-05-02 07:26 | PN ---
PATIENT:ALEJANDRA PURVIS MEDICAL RECORD: [id number] LOCATION:[facility] ADMISSION DATE: 04/08/20 PROGRESS NOTE DATE OF SERVICE: 04/30/2020 SUBJECTIVE: The patient's case was discussed with staff. He has no new complaint. OBJECTIVE: The patient is in good behavioral control. He has poor insight about his situation. ASSESSMENT: Dementia. PLAN: The patient will be maintained on current medications. His long-term prognosis is guarded. Hopefully, he can be transitioned to a long-term soon. TRANSINT:[id number] Voice Confirmation ID: [id number] DOCUMENT ID: [id number] ALEJANDRA FUNEZ MD at 0726 CC: [id number] DICTATION DATE: 04/30/201457 ENTRY LEVEL RECEPTIONIST: 04/30/202042 ADM IN [facility] [id number] [place] [address]
[2020-05-02 09:38] VITALS: BP 138/64
--- NOTE | 2020-05-02 14:55 | NUR ---
The patient is awake and he is pleasant. He has poor insight into his situation. He can walk behind his w/c or a walker. He can self propel but he is slow moving, he toilets, transfers, and feeds himself. Provide prescribed meds. The patient is compliant with meds. He has not shown any aggression, no SI or depression. Continue POC.
[2020-05-02 21:45] VITALS: BP 167/49
--- NOTE | 2020-05-02 22:50 | NUR ---
PT IS ALERT AND ORIENTED TO SELF ONLY. WITHDRAWN WITH STAFF. COMPLIANT WITH ALL MEDICATIONS. EASY TO REDIRECT.
[2020-05-03 07:51] VITALS: BP 135/93
--- NOTE | 2020-05-03 08:41 | NUR ---
The patient is awake and he is pleasant, he is quiet and he stays to himself. He self propels in a w/c, although, he can ambulate with standing behind the w/c and he can transfer, toilet, and feed self. He has not shown any aggression this am. Provide prescribed meds. The patient is compliant with meds and he is eating and drinking well. Continue POC.
--- NOTE | 2020-05-03 18:23 | NUR ---
RECEIVED IN DAYROOM. MOVING ABOUT IN A WHEELCHAIR. CALM AND COOPERATIVE WITH CARE AND ASSESSMENT. IN GOOD SPIRITS. CONFUSED. REDIRECT AND REORIENT NEEDED. SITTING CALMLY ON THE SOFA AT THIS TIME CONTINUE PLAN OF CARE.
[2020-05-03 20:04] VITALS: BP 169/47
[2020-05-04 09:33] VITALS: BP 110/87
--- NOTE | 2020-05-04 18:10 | NUR ---
ALERT, CALM, COOPERATIVE, CONFUSED, QUITE POLITE. MEDS ADMIN PER ORDERS WITH COMPLETE MED COMPLIANCE NOTED. NO ADVERSE REACTIONS TO MEDS. NO ADVERSE BEHAVIORS. CONT. POC OUTLINED.
--- NOTE | 2020-05-04 19:56 | NUR ---
RECEIVED IN DAYROOM. SITTING IN A CHAIR WITH PEERS AT HIS SIDE. CALM AND COOPERATIVE WITH CARE AND ASSESSMENT. CONFUSED BUT IN GOOD SPIRITS. SMILES AND GREETS THIS NURSE. REDIRECT AND REORIENT NEEDED. CONTINUES TO SIT CALMLY IN DAYROOM. CONTINUE PLAN OF CARE.
[2020-05-04 20:05] VITALS: BP 145/60
[2020-05-05 09:31] VITALS: BP 129/59
[2020-05-05 14:21] LABS: BASOPHILS 0.6 % (0-2); EOSINOPHILS 5.5 % (0-7); HEMATOCRIT 38.9 % (42.0-54.0); HEMOGLOBIN 12.6 g/dL (13.5-17.5); IMMATURE GRANULOCYTES 0.2 % (0-5); LYMPHOCYTE ABS# 0.63 10x3/uL (1.32-3.57); LYMPHOCYTES 7.2 % (15-50); MCH 30.2 pg (26.0-34.0); MCHC 32.4 g/dL (31.0-37.0); MCV 93.3 fL (80.0-100.0); MEAN PLATELET VOLUME 9.4 fL (7.4-10.4); MONOCYTES 11.3 % (2-11); NEUTROPHIL ABS# 6.63 10x3/uL (1.78-5.38); NEUTROPHILS 75.2 % (40-80); PLATELET COUNT 302 10x3/uL (130-400); RBC 4.17 10x6/uL (4.20-6.10); RDW 13.2 % (11.5-14.5); WBC 8.8 10x3/uL (4.8-10.8)
--- NOTE | 2020-05-05 17:54 | NUR ---
ALERT, CALM, COOPERATIVE, QUIET, APPRECIATIVE OF CARE. MEDS ADMIN PER ORDERS WITH COMPLETE MED COMPLIANCE NOTED. NO ADVERSE REACTION TO MEDS. CONT POC DIRECTED.
[2020-05-05 20:12] VITALS: BP 129/57
--- NOTE | 2020-05-05 20:12 | NUR ---
RECEIVED IN DAYROOM. SITTING IN A CHAIR WITH PEEERS AT HIS SIDE. CALM AND COOPERATIVE WITH CARE AND ASSESSMENT. CONFUSED. REDIRECT AND REORIENT NEEDED. CONTINUES TO SIT CALMLY IN DAYROOM. CONTINUE PLAN OF CARE.
[2020-05-06 09:59] VITALS: BP 119/70
--- NOTE | 2020-05-06 12:00 | NUR ---
RECEIVED IN PATIENT ROOM. RESTING IN BED WITH EYES CLOSED. CALM AND COOPERATIVE WITH CARE AND ASSESSMENT. PLEASANTLY CONFUSED. WITHDRAWN AND ISOLATES SELF. REDIRECT AND REORIENT NEEDED. EATING LUNCH AT THIS TIME. CONTINUE PLAN OF CARE.
--- NOTE | 2020-05-06 16:47 | NUR ---
Nutrition Follow-up: Diet: Diabetic PO intake: ~86% average x last 9 meals Last BM: 04/30/20 x 3. Wt: 146.4# (05/03/20); Admit Wt: 143# (04/08/21) Meds noted: miralax, SSI. Labs noted: POC Glu 160(H). Recommend continue bowel regimen to promote BM regularity and help preserve appetite. Recommend continue current diet. RD will follow-up within 7 days.
[2020-05-06 20:00] VITALS: BP 143/47
--- NOTE | 2020-05-06 23:23 | NUR ---
PT IS ALERT AND ORIENTED TO SELF ONLY. RECEIVED IN DAYROOM. SELF-ISOLATING AND WITHDRAWN. COMPLIANT WITH ALL MEDICATIONS. COOPERATIVE WITH STAFF. MONITOR FOR SAFETY.
[2020-05-07 09:03] VITALS: BP 145/51
--- NOTE | 2020-05-07 12:09 | NUR ---
Patient rec'd up in a W/C this am. He is A/O times 1 to person and orinetation to his place is often confusing at times as he has difficulty expressing and understanding due to his languagage barrier. He takes meds whole without diff. He has been calm and coorp. today without any behs. of confusion. He does tend to self-isolate himself from the others in group or activities. He will eat fast with the others and then leave the area. Plans to DC soon. Will continue to encourage him to participate with others in groups/activities.
[2020-05-07 20:07] VITALS: BP 141/55
--- NOTE | 2020-05-07 22:43 | NUR ---
PT IS ALERT AND ORIENTED TO SELF ONLY. RECEIVED IN DAYROOM SELF-PROPELLING IN A WHEELCHAIR. CALM AND COOPERATIVE WITH STAFF. COMPLIANT WITH ALL MEDICATIONS. EASY TO REDIRECT. MONITOR FOR SAFETY.
--- NOTE | 2020-05-08 08:21 | NUR ---
The patient is awake and alert, she is sleepy, but she answers questions appropriately. She keeps her eyes closed a lot. She has not shown aggression this am. She is calm, but has a flat to blunted affect. She ambulates, toilets, and feeds herself. Provide prescribed meds. The patient is compliant with meds. She has poor insight into her situation. Continue POC.
[2020-05-08 09:55] VITALS: BP 123/54
--- NOTE | 2020-05-08 10:18 | NUR ---
The patient is awake and he is pleasant. He has poor short term memory recall, He has poor insight into his situation. He has not shown any aggression this am, he is unsteady. He self propels in a w/c, but he has a difficult time. He sometimes walks behind the w/c. He has poor balance. Provide prescribed meds. The patient is compliant with meds. He is sleepy this am, he watches the groups and sometimes participates in the activities. Continue POC.
[2020-05-08 20:00] VITALS: BP 153/63
--- NOTE | 2020-05-08 23:49 | NUR ---
PATIENT RECEIVED IN DAYROOM IN WHEELCHAIR, CALM, COMPLIANT WITH MEDS. HE SEEMS A LITTLE MORE "NEEDY" THE LAST TWO EVENINGS SUCH NEEDING TO BE PUSHED AROUND IN WHEELCHAIR OR HELP GETTING UP AND DOWN. WILL FOLLOW POC
--- NOTE | 2020-05-09 07:37 | NUR ---
NURSE REPORTED TO DR. PRADO INCREASED WEAKNESS NOTED IN PT. NEW ORDER: PHYSICAL THERAPY CONSULT. ORDER PUT INTO COMPUTER PER NURSE.
--- NOTE | 2020-05-09 08:17 | NUR ---
NURSE WENT INTO PT ROOM DUE TO PT EXCESSIVE TALKING OUT LOUD. URINE NOTED TO FLOOR AND ON PT W/C. NURSE CLEANED FLOOR AND CHAIR. NURSE GAVE PT CLOTHES. PT REFUSED TO PUT CLOTHES ON. NURSE REPORTED TO DR. PRADO NEW ORDER FOR: CMP, BMP. ORDERS IN THE COMPUTER WILL CONT TO MONITOR.
[2020-05-09 08:23] VITALS: BP 121/54
[2020-05-09 09:30] LABS: ALBUMIN 3.1 g/dL (3.4-5.0); ANION GAP 13.5 mmol/L (8-16); BILIRUBIN - TOTAL 0.27 mg/dL (0.2-1.3); CALCIUM 8.7 mg/dL (8.5-10.1); CARBON DIOXIDE 23.4 mmol/L (21.0-32.0); CREATININE - SERUM 1.1 mg/dL (0.6-1.3); POTASSIUM - SERUM 3.9 mmol/L (3.5-5.1); PROTEIN - SERUM 6.6 g/dL (6.4-8.2)
--- NOTE | 2020-05-09 10:41 | NUR ---
The patient is showing weakness today, he says he does not feel well. He says he feels weaker. His blood pressure is low, held his blood pressure meds. He self propels in a w/c, but he has great difficulty propelling. He can transfer with assist. He can ambulate with staff stand by. Provide prescribed meds. The patient is compliant with meds. Monitor his mood and behavior. Continue POC.
[2020-05-09 20:00] VITALS: BP 137/58
--- NOTE | 2020-05-09 23:58 | NUR ---
RECEIVED PATIENT IN DAYROOM, CALM, STAYS TO HIMSELF. CONFUSED. COMPLIANT WITH MEDS. WILL FOLLOW POC
[2020-05-10 09:56] VITALS: BP 102/52
--- NOTE | 2020-05-10 14:00 | NUR ---
RECEIVED IN HALLWAY OUTSIDE OF NURSES STATION. CALM AND COOPERATIVE WITH CARE AND ASSESSMENT. WITHDRAWS AND ISOLATES SELF. CONFUSED. REDIRECT AND REORIENT NEEDED. SITTING IN GROUP AT THIS TIME. CONTINUE PLAN OF CARE.
--- NOTE | 2020-05-10 15:55 | NUR ---
ANGELI FROM LAB CALLED TO NOTIFY THIS NURSE THAT PATIENT IS COVID POSITIVE. PATIENT MOVED FROM DAY ROOM TO PATIENT ROOM. DROPLET ISOLATION PRECAUTIONS INITIATED. DR PRADO NOTIFIED. CLINICAL STAFF ANESTHESIOLOGIST NOTIFIED. CLINICAL STAFF ANESTHESIOLOGIST STATED SHE WILL NOTIFY INFECTION CONTROL.
[2020-05-10 15:57] LABS: SARS-CoV-2 ANTIGEN POSITIVE- SARS-COV-2 (NEGATIVE)
[2020-05-10 22:12] VITALS: BP 120/49
--- NOTE | 2020-05-10 23:01 | NUR ---
RECEIVED IN BEDROOM. RESTING QUIETLY IN BED WITH EYES CLOSED. YELLED OUT DURING CARE BUT REDIRECTED WITHOUT ISSUE. NO SIGNS OF AGGRESSION. REDIRECT AND REORIENT NEEDED. RESTING IN BED WITH EYES CLOSED AT THIS TIME. CONTINUE PLAN OF CARE.
[2020-05-11 10:14] VITALS: BP 83/40
--- NOTE | 2020-05-11 16:56 | NUR ---
RECEIVED IN PATIENT ROOM. RESTING IN BED WITH EYES OPEN. CALM AND COOPERATIVE WITH CARE AND ASSESSMENT. CONFUSED. DEMANDING AT TIMES. YELLS AT STAFF AT TIMES. EASILY AGITATED. REDIRECT AND REORIENT NEEDED. RESTING IN BED AT THIS TIME. CONTINUE PLAN OF CARE.
[2020-05-11 20:45] VITALS: BP 165/69
--- NOTE | 2020-05-11 22:30 | NUR ---
RECEIVED IN BEDROOM. YELLING OUT WHEN ASSISTED BY [facility]. INCREASING AGITATIO AND ANXIETY. UNABLE TO REDIRECT OR REORIENT. PRN ATIVAN 0.5 MG IM GIVEN FOR ANXIETY AT 2100 AND PRN HALDOL 2 MG IM GIVEN FOR UNSAFE PSYCHOTIC BEHAVIOR AT 2100. RESTING IN BED WITH EYES CLOSED AT THIS TIME. CONTINUE PLAN OF CARE. .
[2020-05-12 08:00] VITALS: BP 141/72
--- NOTE | 2020-05-12 14:38 | NUR ---
Rec'd patient this am sitting up on the side of the bed. Patient seems aggitated this am, confused, and requesting the door to be shut and for the nurse to get out by waving his arm in the air in a motion to get out. He is A/O times 1 to person. He is easily aggitated. He has been compliant with medication and took meds whole. He is unsteady on his feet and has an unbalanced gait. He is a big fall risk. This nurse attempted to review fall precautions for one to one education and he participated very little. New meds started today.Awaiting covid testing results. He is often given positive feedback and encouragement for any participation in group or educational needs.
--- NOTE | 2020-05-12 16:10 | PN ---
PATIENT:ALEJANDRA PURVIS MEDICAL RECORD: [id number] LOCATION:[facility] ADMISSION DATE: 04/08/20 PROGRESS NOTE DATE OF SERVICE: 05/11/2020 SUBJECTIVE: The patient's case was discussed with staff. He has no new complaint. OBJECTIVE: The patient is in good behavioral control. He has poor insight about his situation. ASSESSMENT: Dementia. PLAN: The patient can be transitioned to the alf as soon as arrangements are made. TRANSINT:[id number] Voice Confirmation ID: [id number] DOCUMENT ID: [id number] ALEJANDRA FUNEZ MD at 1610 CC: [id number] DICTATION DATE: 05/11/20 1601 SAND DIGGER: 05/12/20 0020 ADM IN [place] [id number] [place] [address]
--- NOTE | 2020-05-12 16:22 | NUR ---
Patient was yelling when nurse entered room and he was sitting on the floor between the bed and the bathroom entrance. He states he "sat down" on the floor. He had been to the restroom and there was a few areas of bowel on the floor. He denies pain or discomfort. There is an area of brown discoloration to his right hip area but he shows no signs of pain when assessed by nurse. He was placed on the bed and he layed down and is lying there quiet with eyes closed.
[2020-05-12 22:30] VITALS: BP 173/59
--- NOTE | 2020-05-13 01:45 | NUR ---
RECEIVED IN BEDROOM. EASILY AGITATED. YELLS OUT AT STAFF. CAN BE DIFFICULT TO REDIRECT AT TIMES. CALM AND COOPERATIVE WITH ASSESSMENT. CONFUSED. REDIRECT AND REORIENT NEEEDED. RESTING QUIETLY IN BED AT THIS TIME. CONTINUE PLAN OF CARE.
--- NOTE | 2020-05-13 08:50 | PN ---
PATIENT:ALEJANDRA PURVIS MEDICAL RECORD: [id number] LOCATION:[facility] ADMISSION DATE: 04/08/20 PROGRESS NOTE DATE OF SERVICE: 05/12/2020 SUBJECTIVE: The patient's case was discussed with staff. He has no new complaint. OBJECTIVE: The patient is in good behavioral control. He has limited insight about his situation. ASSESSMENT: Dementia. PLAN: The patient will be maintained on current medicines and will be transitioned to the [facility] as soon as the financial piece of his placement is arranged. TRANSINT:[id number] Voice Confirmation ID: [id number] DOCUMENT ID: [id number] ALEJANDRA FUNEZ MD at 0850 CC: [id number] DICTATION DATE: 05/12/20 162 TUNNEL MINER: 05/13/20 0149 ADM IN [facility] [address] [place] [address]
[2020-05-13 08:54] VITALS: BP 155/47
--- NOTE | 2020-05-13 09:30 | NUR ---
Nutrition Follow-up: Covid+, currently asymptomatic. Loose stools -per MD notes Diet: Diabetic PO intake: ~56% average x last 9 meals Last BM: 05/12/20. Wt: 146.6# (05/10/20); Admit Wt: 143# (05/09/20) Meds noted: probiotics, zithromax, miralax (on hold), SSI, vit D Labs noted: POC Glu 126(H) Recommend continue current diet. Offer oral nutrition supplements if PO intake <65% of meals. RD will follow-up within 7 days.
[2020-05-13 20:00] VITALS: BP 127/55
--- NOTE | 2020-05-14 01:03 | NUR ---
B)RECEIVED PATIENT LYING IN HIS BED. ORIENTED TO SELF ONLY. NO INSIGHT INTO THE REASON HE IS HERE. WITHDRAWN. DOES NOT WANT ANYONE DOING ANYTHING WITH HIM. WHEN EXPLAINED TO PATIENT HE IS (+) FOR THE COVID VIRUS HE NODDED HIS HEAD YES. REMAINS ON DROPLET PRECAUTIONS. I)ADMINISTER MEDS AND MONITOR COMPLIANCE. REORIENT NEEDED. R)MED COMPLIANT. POOR REORIENTATION DUE TO IMPAIRED ABILITY TO RETAIN INFORMATION. P)CONTINUE POC AND PROVIDE SAFE ENVIRONMENT.
[2020-05-14 08:53] VITALS: BP 145/92
--- NOTE | 2020-05-14 14:22 | PN ---
PATIENT:ALEJANDRA PURVIS MEDICAL RECORD: [id number] LOCATION:[facility] ADMISSION DATE: 04/08/20 PROGRESS NOTE DATE OF SERVICE: 05/13/2020 SUBJECTIVE: The patient's case was discussed with staff. He has no new complaint. OBJECTIVE: The patient is calm and cooperative, but only oriented to person. Apparently, he was significantly agitated last night, but did not require p.r.n. medication. ASSESSMENT: Dementia. PLAN: The patient is in need of placement. He may be discharged as soon as that is arranged. TRANSINT:[id number] Voice Confirmation ID: [id number] DOCUMENT ID: [id number] ALEJANDRA FUNEZ MD at 1422 CC: [id number] DICTATION DATE: 05/13/20 173 CENTER MEDICAL AND LAB DIRECTOR: 05/13/20 2254 ADM IN [place] [id number] [place] [address]
--- NOTE | 2020-05-14 18:16 | NUR ---
ALERT, CALM, QUIET THIS SHIFT, APPETITE POOR AT MEALTIMES. MEDS ADMIN PER ORDERS WITH COMPLETE MED COMPLIANCE NOTED. NO ADVERSE REACTION TO MEDS. CONT. PLAN OF CARE PREVIOUSLY OUTLINED.
[2020-05-14 20:00] VITALS: BP 187/90
--- NOTE | 2020-05-15 01:13 | NUR ---
B) Patient is alert and oriented to self, calm and cooperative, I) Administered scheduled medications as ordered, maintained isolation protocols, monitored for safety R) Medication and isolation compliant, follows instructions P) Continue plan of care.
[2020-05-15 08:27] VITALS: BP 145/57
[2020-05-15 11:41] LABS: BASOPHILS 0.2 % (0-2); EOSINOPHILS 2.9 % (0-7); HEMATOCRIT 40.8 % (42.0-54.0); HEMOGLOBIN 13.3 g/dL (13.5-17.5); IMMATURE GRANULOCYTES 0.2 % (0-5); LYMPHOCYTE ABS# 0.33 10x3/uL (1.32-3.57); MCH 29.9 pg (26.0-34.0); MCHC 32.6 g/dL (31.0-37.0); MCV 91.7 fL (80.0-100.0); MEAN PLATELET VOLUME 9.4 fL (7.4-10.4); MONOCYTES 10.9 % (2-11); NEUTROPHIL ABS# 4.37 10x3/uL (1.78-5.38); NEUTROPHILS 79.8 % (40-80); PLATELET COUNT 274 10x3/uL (130-400); RBC 4.45 10x6/uL (4.20-6.10); RDW 12.9 % (11.5-14.5); WBC 5.5 10x3/uL (4.8-10.8)
[2020-05-15 12:10] LABS: ALBUMIN 2.7 g/dL (3.4-5.0); ANION GAP 12.6 mmol/L (8-16); BILIRUBIN - TOTAL 0.31 mg/dL (0.2-1.3); CALCIUM 8.4 mg/dL (8.5-10.1); CARBON DIOXIDE 23.2 mmol/L (21.0-32.0); CREATININE - SERUM 1.1 mg/dL (0.6-1.3); POTASSIUM - SERUM 3.8 mmol/L (3.5-5.1); PROTEIN - SERUM 6.3 g/dL (6.4-8.2)
[2020-05-15 23:02] VITALS: BP 116/59
--- NOTE | 2020-05-15 23:56 | NUR ---
PT IS ALERT AND ORIENTED TO SELF ONLY. HE IS WITHDRAWN AND SELF ISOLATING. COMPLIANT WITH ALL MEDICATIONS. MONITOR FOR SAFETY.
[2020-05-16 09:46] VITALS: BP 140/70
--- NOTE | 2020-05-16 11:10 | NUR ---
The patient is awake and alert, he is in his room on isolation. He has not shown any aggression, he is confused, but he is pleasant. He has poor insight into his situation, he has left sided weakness and he is getting weaker in strength. He is able to stand and transfer, but needs help at times. He is quiet and has a blunted affect. It is difficult to communicate with him as he has had a stroke and also there is a language difference. He can answer "Yes, and No." Monitor his mood and behavior. Continue POC.
[2020-05-16 22:00] VITALS: BP 130/85
[2020-05-16 22:14] VITALS: BP 138/72
--- NOTE | 2020-05-16 23:18 | NUR ---
B) patient is alert and oriented to person, calm with a blunted affect, I) Administered scheduled medications as ordered, monitored for safety R) Mediation compliant, no aggression, pleasant and says 'Thank you' frequently. P) Continue plan of care.
[2020-05-17 09:39] VITALS: BP 158/66
--- NOTE | 2020-05-17 14:57 | NUR ---
The patient is quiet and he is on isolation, he does seem to like being in the room as he is not one to socialize. He is weak, but he has left side weakness. He was able to transfer and walk, but he is having great difficulty now. Provide prescribed meds. The patient is compliant with meds. The patient has poor insight into his situation. Continue POC.
--- NOTE | 2020-05-17 19:31 | NUR ---
RECEIVED IN BEDROOM. RESTING QUIETLY WITH EYES OPEN. CALM AND COOPERATIVE WITH CARE AND ASSESSMENT. CONFUSED. REDIRECT AND REORIENT NEEDED. CONTINUES TO REST QUIETLY IN BED. CONTINUE PLAN OF CARE.
[2020-05-17 21:34] VITALS: BP 136/55
[2020-05-18 08:59] VITALS: BP 144/70
--- NOTE | 2020-05-18 14:06 | PN ---
PATIENT:ALEJANDRA PURVIS MEDICAL RECORD: [id number] LOCATION:[facility] ADMISSION DATE: 04/08/20 PROGRESS NOTE DATE OF SERVICE: 05/14/2020 SUBJECTIVE: The patient's case was discussed with staff. He has no new complaint. OBJECTIVE: The patient is in good behavioral control. He has limited insight. ASSESSMENT: Dementia. PLAN: The patient will be discharged as soon as placement is arranged. TRANSINT:[id number] Voice Confirmation ID: [id number] DOCUMENT ID: [id number] ALEJANDRA FUNEZ MD at 1406 CC: [id number] DICTATION DATE: 05/14/20 1624 NATIONAL INSURANCE OFFICER: 05/14/204 ADM IN [place] [id number] [place] [address]
--- NOTE | 2020-05-18 17:30 | NUR ---
RECEIVED IN PATIENT ROOM. RESTING IN BED WITH EYES CLOSED. CALM AND COOPERATIVE WITH CARE AND ASSESSMENT. NO BEHAVIORS NOTED. REDIRECT AND REORIENT NEEDED. EATING AT DINNER AT THIS TIME. CONTINUE PLAN OF CARE.
--- NOTE | 2020-05-18 19:27 | NUR ---
RECEIVED IN BEDROOM. RESTING IN BED WITH EYES OPEN. CALM AND COOPERATIVE WITH CARE AND ASSESSMENT. NO SIGNS OF AGGRESSION. REDIRECT AND REORIENT NEEDED. CONTINUES TO REST QUIETLY IN BEDROOM. CONTINUE PLAN OF CARE.
[2020-05-18 21:21] VITALS: BP 151/58
[2020-05-19 08:38] VITALS: BP 130/68
--- NOTE | 2020-05-19 13:55 | PN ---
PATIENT:ALEJNADRA PURVIS MEDICAL RECORD: [id number] LOCATION:[facility] ADMISSION DATE: 04/08/20 PROGRESS NOTE DATE OF SERVICE: 05/18/2020 SUBJECTIVE: The patient's case was discussed with staff. He has no new complaint. OBJECTIVE: The patient is positive for COVID, but has no serious symptoms associated with it at this point. His pulse oximetry is normal and his vital signs are acceptable. ASSESSMENT: Dementia. PLAN: The patient is going to be maintained on current medicines and can be transitioned out of the hospital as soon as placement is arranged. TRANSINT:[id number] Voice Confirmation ID: [id number] DOCUMENT ID: [id number] ALEJANDRA FUNEZ MD at 1355 CC: [id number] DICTATION DATE: 05/18/20 1421 HEAD LINEMAN: 05/18/20 2250 ADM IN [place] [id number] [place] [id number]
--- NOTE | 2020-05-19 17:30 | NUR ---
RECEIVED IN PATIENT ROOM. CALM AND COOPERATIVE WITH CARE AND ASSESSMENT. CONFUSED. BECOMES EASILY AGITATED AT TIMES. REDIRECT AND REORIENT NEEDED. EATING DINNER AT THIS TIME. CONTINUE PLAN OF CARE.
[2020-05-19 20:00] VITALS: BP 158/66
--- NOTE | 2020-05-19 20:20 | NUR ---
RECEIVED IN BEDROOM. RESTING QUIETLY WITH EYES CLOSED. CALM AND COOPERATIVE WITH CARE AND ASSESSMENT. CONFUSED. REDIRECT AND REORIENT NEEDED. CONTINUES TO REST QUIETLY IN BED. CONTINUE PLAN OF CARE.
--- NOTE | 2020-05-20 10:10 | PN ---
PATIENT:ALEJANDRA PURVIS MEDICAL RECORD: [id number] LOCATION:[facility] ADMISSION DATE: 04/08/20 PROGRESS NOTE DATE OF SERVICE: 05/19/2020 SUBJECTIVE: The patient's case was discussed with staff. OBJECTIVE: The patient's clinical condition is unchanged. ASSESSMENT: Dementia. PLAN: The patient may be transitioned out of the hospital as soon as arrangements are made. TRANSINT:[id number] Voice Confirmation ID: [id number] DOCUMENT ID: [id number] ALEJANDRA FUNEZ MD at 1010 CC: [id number] DICTATION DATE: 05/19/20 1720 DIGITAL PHOTO PRINTER: 05/19/20 2320 ADM IN [place] [id number] [place] [id number]
--- NOTE | 2020-05-20 14:48 | NUR ---
Nutrition Follow-up: Eating well. Diet: Diabetic PO intake: 97% avg x 9 meals Wt: 146.6# (05/10); 144.4# (04/12) Last BM: 05/18 Labs noted: Glu 133 Meds noted: Humalog, vit D -RD follow-up: 05/27
--- NOTE | 2020-05-20 17:30 | NUR ---
RECEIVED IN PATIENT ROOM. CALM AND COOPERATIVE WITH CARE AND ASSESSMENT. CONFUSED. CAN BECOME EASILY AGITATED WITH STAFF AT TIMES. REDIRECT AND REORIENT NEEDED. EATING DINNER AT THIS TIME. CONTINUE PLAN OF CARE.
[2020-05-20 20:00] VITALS: BP 125/55
--- NOTE | 2020-05-20 23:11 | NUR ---
B) Patient is alert and oriented to self, difficulty expressing himself at times, I) Administered scheduled medications as ordered, monitored for safety R) Medication compliant, preferres to be left alone P) Continue plan of care.
[2020-05-21 08:55] LABS: ALBUMIN 2.9 g/dL (3.4-5.0); ALKALINE PHOSPHATASE 77 U/L (30-120); ALT (SGPT) 34 U/L (10-68); BILIRUBIN - TOTAL 0.37 mg/dL (0.2-1.3); CALC OSMOLALITY 281 mosm/kg (275-300); CALCIUM 8.4 mg/dL (8.5-10.1); CARBON DIOXIDE 27.5 mmol/L (21.0-32.0); CHLORIDE - SERUM 103 mmol/L (98-107); POTASSIUM - SERUM 3.9 mmol/L (3.5-5.1); PROTEIN - SERUM 5.8 g/dL (6.4-8.2); SODIUM 138 mmol/L (136-145); UREA NITROGEN 17 mg/dL (7-18); eGFR NON AFRICAN AMERICAN 76 mL/min (90-120)
[2020-05-21 08:56] LABS: GLUCOSE 174 mg/dL (74-106)
[2020-05-21 09:16] LABS: HEMATOCRIT 38.2 % (42.0-54.0); HEMOGLOBIN 12.6 g/dL (13.5-17.5); LYMPHOCYTES 7.4 % (15-50); MCH 29.9 pg (26.0-34.0); MCV 90.5 fL (80.0-100.0); MEAN PLATELET VOLUME 9.3 fL (7.4-10.4); RBC 4.22 10x6/uL (4.20-6.10); RDW 12.7 % (11.5-14.5); WBC 5.6 10x3/uL (4.8-10.8)
[2020-05-21 09:20] LABS: PLATELET COUNT 203 10x3/uL (130-400)
--- NOTE | 2020-05-21 09:45 | NUR ---
NURSE NOTIFIED DR. PRADO IN REGARDS TO PT LABS AND CLARIFY ROCEPHIN ORDER. CONTINUE ROCEPHIN 3X DAYS. LABS WITHIN NORMAL LIMITS.
[2020-05-21 14:29] VITALS: BP 142/38
--- NOTE | 2020-05-21 15:17 | PN ---
PATIENT:ALEJANDRA PURVIS MEDICAL RECORD: [id number] LOCATION:[facility] ADMISSION DATE: 04/08/20 PROGRESS NOTE DATE OF SERVICE: 05/20/2020 SUBJECTIVE: The patient's case was discussed with staff. He has no new complaint. OBJECTIVE: The patient is in good behavioral control with limited insight about his condition. He does tolerate his medicines well. ASSESSMENT: Dementia. PLAN: The patient is going to be discharged as soon as placement is arranged. I have no update on the progress on this, but I do believe that every reasonable effort is being made on the part of hospital staff here to solve the problems that have delayed his discharge for so long. TRANSINT:[id number] Voice Confirmation ID: [id number] DOCUMENT ID: [id number] ALEJANDRA FUNEZ MD at 1517 CC: [id number] DICTATION DATE: 05/20/20 1639 COMPLIANCE VICE PRESIDENT: 05/20/20 2338 ADM IN [place] [id number] [place] [address]
--- NOTE | 2020-05-21 17:51 | NUR ---
PT LAYING IN BED AT THIS TIME. PT IS CONFUSED AND ALERT TO SELF ONLY. ALERT TO PERSON ONLY. DIFFICULT TO COMMUNICATE WITH PT. REDIRECT AND REORIENT NEEDED. PT CAN NOT MAKE NEEDS KNOWN. PT GRUNTS OR STATED NO NO NO OVER AND OVER WHEN STAFF ATTEMPTS TO ENTER THE ROOM. PT FIRST DOSE OF ROCEPHIN IM GIVEN PER ORDER. NO S/S REACTION NOTED. HOLD AMARYL AND METFORMIN. NEW ORDER FOR PEPCID 20 MG BID, ASA 81 MG DAILY. PT IS COMPLIANT WITH MEDS, VITALS AND ASSESSMENTS. PT REFUSED TO EAT MEALS. CONT TO ENCOURAGE FLUIDS AND FOODS. BED ALARM IN PLACE AND ACTIVE. CALL REED IN PLACE AND ACTIVE. PT HAS INCONTIENT EPISODES. WILL CONT PLAN OF CARE.
[2020-05-21 21:36] VITALS: BP 134/48
--- NOTE | 2020-05-21 22:19 | NUR ---
B) Patient is alert and oriented to person, calm and cooperative with care, I) Administered scheduled medications as ordered, maintained isolation protocols, R) Medication compliant, resting quietly in his bed, P) Continue plan of care.
[2020-05-22 09:37] VITALS: BP 125/38
--- NOTE | 2020-05-22 11:00 | NUR ---
NURSE SITED IV 22 G IN LEFT WRIST/FOREARM. ONE FAILED IV STICK. ONE SUCCESSFUL STICK. PT TOLERATED WELL. D5W-N/S@ 100 CC/HR. SITE WRAPPED AND SECURED.
--- NOTE | 2020-05-22 15:37 | NUR ---
PATIENT IS COOPERATIVE THIS SHIFT, IV PATENT AND INFUSING AT 100ML/HR, NO ADVERSE BEHAVIORS NOTED. MEDS ADMIN PER ORDERS WITH COMPLETE MED COMPLIANCE NOTICE. CONTINUE PLAN OF CARE.
--- NOTE | 2020-05-22 23:14 | NUR ---
RECIEVED PATIENT IN HIS ROOM, RECEIVING IV FLUIDS (BANANA BAG), IV SITE WITHOUT REDNESS, EDEMA. IV IS INFUSING WITHOUT DIFFICULTY. HE IS TIRED AND ALWAYS WANTS TO BE LEFT ALONE. WILL FOLLOW POC
--- NOTE | 2020-05-23 09:24 | NUR ---
pt laying in bed at this time. pt is confused and alert to self only. pt can make needs known with wu. pt is difficult to understand at times. pt is alert to self only. redirect and reorient as needed. pt is compliant with meds, vitals and assessments. pt is a total care at this time. staff conts to encourage pt to assist with adls to regain strength. pericare q 2 hr and prn. pt conts on D5W-N/S at 100 cc/hr in left wrist. pt cont on rocephin 1 gram final dose. pt tolerated well. bed alarm in place and active. will cont plan of care.
[2020-05-23 14:39] VITALS: BP 90/50
--- NOTE | 2020-05-23 20:13 | NUR ---
PATIENT RECEIVED IN HIS ROOM, HE ONLY SAYS "PLEASE, PLEASE,", HE IS NO DISTRESS, MVI INFUSING TO LEFT WRIST WITHOUT DIFFICULTY, IV SITE WITHOUT REDNESS OR EDEMA. HE IS CALM AND PLEASANT. WILL FOLLOW POC
[2020-05-23 20:30] VITALS: BP 128/45
[2020-05-24 13:30] VITALS: BP 129/59
--- NOTE | 2020-05-24 15:54 | NUR ---
REC'D PT IN BED WITH EYES CLOSED. RESPONDS TO VERBAL STIMULI. AWAKE AND ALERT TO PERSON, PLACE, AND TIME. PT CONFUSED REGARDING SITUATION. PRESCRIBED MEDS PROVIDED ORDERED. MED COMPLIANT. REDIRECT AND REORIENT NEEDED. NO BEHAVIORS NOTED AT THIS TIME. FALL PRECAUTIONS IN PLACE FOR SAFETY. WILL CPOC.
--- NOTE | 2020-05-24 19:24 | NUR ---
REEIVED IN BEDROOM. RESTING IN BED WITH EYES CLOSED. RESPONDS TO VOICED. ONLY VOICES THE WORD "PLEASE" WHEN SPOKEN TO. IV INFUSING. CALM AND COOPERATIVE WITH CARE AND ASSESSMENT. CONFUSED. REDIRECT AND REORIENT NEEDED. CONTINUES TO REST QUIETLY IN BED WITH EYES CLOSED. CONTINUE PLAN OF CARE.
[2020-05-24 19:30] VITALS: BP 102/71
[2020-05-25 08:22] VITALS: BP 136/70
--- NOTE | 2020-05-25 09:17 | PN ---
PATIENT:ALEJANDRA PURVIS MEDICAL RECORD: [id number] LOCATION:[facility] ADMISSION DATE: 04/08/20 PROGRESS NOTE DATE OF SERVICE: 05/21/2020 SUBJECTIVE: The patient's case was discussed with staff. OBJECTIVE: The patient's clinical condition is unchanged from a psychiatric standpoint. ASSESSMENT: Dementia. PLAN: The patient may be discharged as soon as placement is arranged. I spoke with the case management today and there has been no progress. TRANSINT:[id number] Voice Confirmation ID: [id number] DOCUMENT ID: [id number] ALEJANDRA FUNEZ MD at 0917 CC: [id number] DICTATION DATE: 05/21/20 1632 BONDACTOR MACHINE OPERATOR: 05/21/202226 ADM IN [place] [id number] [place] [address]
--- NOTE | 2020-05-25 17:30 | NUR ---
RECEIVED IN PATIENT ROOM. CALM AND COOPERATIVE WITH CARE AND ASSESSMENT. CONFUSED. WEAK. CAN BECOME EASILY AGITATED WITH STAFF AT TIMES. REDIRECT AND REORIENT NEEDED. EATING DINNER AT THIS TIME. CONTINUE PLAN OF CARE.
--- NOTE | 2020-05-25 19:44 | NUR ---
RECEIVED IN BEDROOM. RESTING IN BED WITH EYES CLOSED. RESPONDS TO VOICE. DOES NOT ANSWER QUESTIONS. IV INFUSING. CALM AND COOPERATIVE WITH CARE AND ASSESSMENT. CONTINUES TO RESTING IN BED WITH EYES CLOSED. CONTINUE PLAN OF CARE.
[2020-05-25 20:34] VITALS: BP 124/53
[2020-05-26 08:09] VITALS: BP 128/54
--- NOTE | 2020-05-26 10:18 | NUR ---
REC'D PT IN BED WITH EYES CLOSED. RESPONDS TO VERBAL STIMULI. CALM AND COOPERATIVE WITH ASSESSMENT. CONFUSED, WEAK, AND CAN BECOME EASILY AGITATED WITH STAFF AT TIMES. REDIRECT AND REORIENT NEEDED. WILL CPOC.
[2020-05-26 19:47] VITALS: BP 96/62
--- NOTE | 2020-05-26 20:44 | NUR ---
RECEIVED IN BEDROOM. RESTING IN BED WITH EYES CLOSED. CALM AND COOPERATIVE WITH CARE AND ASSESSMENT. CAN NOT VOICE NEEDS. CONFUSED. ENCOURAGE TO EXPRESS NEEDS. CONTINUES TO REST QUUIETLY WITH EYES CLOSED. CONTINUE PLAN OF CARE.
--- NOTE | 2020-05-27 04:00 | NUR ---
IV PULLED OUT WITH CATHETER INTACT. USING ASEPTIC TECHNIQUE IV RESITED TO LEFT ANTERIOR FOREARM WITH 22G X 1 STICK. IV INFUSING AT 100CC/HR WITHOUT DIFFICULTY.
--- NOTE | 2020-05-27 09:26 | NUR ---
Nutrition Follow-up/Re-assessment: Patient is declining per MD notes. Diet: Diabetic PO intake: <10% x last 9 meals Last BM: 05/27/20 x 2. Wt: 146.6# (05/10/20)- no new weight Meds noted: megace, MVI, probiotics, miralax, SSI Labs noted: POC Glu 222(H) Estimated nutrition needs: 1625-1950cal (25-30kcal/kg), 65-78gms protein (1-1.2gms/kg), 1625-1950mL fluid (or per MD) Nutrition diagnosis: Inadequate energy intake r/t decreased appetite/PO intake with covid decline AEB PO intake <10% average x last 9 meals. Recommend: -MD consider nutrition support NGT vs PEG placement. Recommend Glucerna 1.5 @ 45mL/hr + H2O @ 35mL/hr. This will provide: 1620kcal, 89gms protein, and 1660mL free water. -Will add Glucerna oral nutrition supplement to diet order. -RD will follow-up within 5 days.
[2020-05-27 09:31] VITALS: BP 149/42
--- NOTE | 2020-05-27 14:07 | PN ---
PATIENT:ALEJANDRA PURVIS MEDICAL RECORD: [id number] LOCATION:[facility] ADMISSION DATE: 04/08/20 PROGRESS NOTE DATE OF SERVICE: 05/26/2020 SUBJECTIVE: The patient's case was discussed with staff. He has no new complaint. OBJECTIVE: The patient is withdrawn, isolated and at times uncooperative. ASSESSMENT: Dementia. PLAN: Current medicines have been reviewed. There is no progress on his placement. TRANSINT:[id number] Voice Confirmation ID: [id number] DOCUMENT ID: [id number] ALEJANDRA FUNEZ MD at 1407 CC: [id number] DICTATION DATE: 05/26/20 174 CLINICAL DATA PROGRAMMER: 05/27/20 0113 ADM IN [place] [id number] [place] [id number]
--- NOTE | 2020-05-27 17:52 | NUR ---
PT LAYING IN BED WITH EYES CLOSED. RESP EVEN AND NONLABORED. PT IS WEAK. REQUIRES ASSISTANCE WITH ADLS. PT IS CONFUSED AND ALERT TO SELF ONLY. NO BEHAVIORS NOTED. COMPLIANT WITH MEDS, VITALS AND ASSESSMENTS. CONTS ON DROPLET ISOLATION FOR SARS-19. COMPLIANT. CONTS WITH IV IN LEFT FOREARM. CONT INCONTIENT CARE Q 2 HR AND PRN. BED ALARM IN PLACE AND ACTIVE. WILL CONT PLAN OF CARE.
[2020-05-27 20:00] VITALS: BP 144/114
--- NOTE | 2020-05-27 21:31 | NUR ---
B) Patient is alert and oriented to self, yelling out at times, complains of generalized pain, I) Administered scheduled medications as ordered, PRN Tylenol 650 mg PO given at 20:20 for pain, R) Mediation compliant, sleeping now quietly in his bed, P) Continue plan of care.
--- NOTE | 2020-05-28 09:27 | PN ---
PATIENT:ALEJANDRA PURVIS MEDICAL RECORD: [id number] LOCATION:[facility] ADMISSION DATE: 04/08/20 PROGRESS NOTE DATE OF SERVICE: 05/27/2020 SUBJECTIVE: The patient's case was discussed with staff. OBJECTIVE: The patient is unchanged clinically. ASSESSMENT: Dementia. PLAN: The patient is and has been ready for discharge. Unfortunately, there has been no progress on his placement. TRANSINT:[id number] Voice Confirmation ID: [id number] DOCUMENT ID: [id number] ALEJANDRA FUNEZ MD at 0927 CC: [id number] DICTATION DATE: 05/27/20 1514 CDL BULK DRIVER: 05/27/20 1641 ADM IN [place] [id number] [place] [id number]
[2020-05-28 09:36] VITALS: BP 115/64
--- NOTE | 2020-05-28 14:20 | NUR ---
PT RESTING IN BED AT THIS TIME. PT IS CALM AND COOPERATIVE. PT IS CONFUSED AND ALERT TO SELF ONLY. CAN NOT MAKE NEEDS KNOWN. TOTAL ASSIST. PT YELLS OUT DURING CARE. NURSE REPORT PUFFINESS NOTED TO RIGHT HAND AND PAIN WITH ADLS. NEW ORDERS FOR PT. PT CONTS ON DROPLET ISOLATION FOR SARS-19. PT TURN AND REPOSITION Q 2 HR AND PRN. COMPLIANT WITH MEDS, VITALS AND ASSESSMENTS. BED ALARM IN PLACE AND ACTIVE WILL CONT PLAN OF CARE.
[2020-05-28 14:58] LABS: BASOPHILS 0.3 % (0-2); EOSINOPHILS 3.2 % (0-7); HEMATOCRIT 32.4 % (42.0-54.0); HEMOGLOBIN 10.9 g/dL (13.5-17.5); IMMATURE GRANULOCYTES 0.3 % (0-5); LYMPHOCYTE ABS# 0.24 10x3/uL (1.32-3.57); LYMPHOCYTES 6.3 % (15-50); MCH 29.5 pg (26.0-34.0); MCHC 33.6 g/dL (31.0-37.0); MCV 87.6 fL (80.0-100.0); MEAN PLATELET VOLUME 9.3 fL (7.4-10.4); NEUTROPHIL ABS# 2.91 10x3/uL (1.78-5.38); NEUTROPHILS 76.9 % (40-80); RDW 13.1 % (11.5-14.5); WBC 3.8 10x3/uL (4.8-10.8)
[2020-05-28 15:03] LABS: PLATELET COUNT 255 10x3/uL (130-400)
[2020-05-28 15:17] LABS: ALBUMIN 1.5 g/dL (3.4-5.0); ALKALINE PHOSPHATASE 47 U/L (30-120); ALT (SGPT) 41 U/L (10-68); BILIRUBIN - TOTAL 0.25 mg/dL (0.2-1.3); CALCIUM 7.6 mg/dL (8.5-10.1); CARBON DIOXIDE 22.5 mmol/L (21.0-32.0); CHLORIDE - SERUM 111 mmol/L (98-107); CREATININE - SERUM 0.8 mg/dL (0.6-1.3); PROTEIN - SERUM 4.7 g/dL (6.4-8.2); SODIUM 143 mmol/L (136-145); UREA NITROGEN 6 mg/dL (7-18); eGFR NON AFRICAN AMERICAN > 90 mL/min (90-120)
[2020-05-28 15:25] LABS: CALC OSMOLALITY 289 mosm/kg (275-300); GLUCOSE 227 mg/dL (74-106); POTASSIUM - SERUM 2.9 mmol/L (3.5-5.1)
--- NOTE | 2020-05-28 15:41 | NUR ---
LAB CALLED WITH A CRITICAL K+ LEVEL. NOTIFIED DR. PRADO AT THIS TIME. NEW ORDER FOR: POTASSIUM RIDER 40 MeQ NOW, 40 MeQ DAILY, LABS: POTASSIUM, PHOS, MAG, BMP IN THE A.M. NURSE CALLED PHARMACY TO VERIFY ORDER AND AWAITING MEDICATIONS AT THIS TIME. WILL ADMINSTER WHEN AVALIABLE.
[2020-05-28 16:03] LABS: ERYTHROCYTE SEDIMENTATION RATE 63 mm/hr (0-20)
--- NOTE | 2020-05-28 16:43 | NUR ---
NURSE REPORTED EDEMA NOTED TO RIGHT HAND AND PAIN WITH ALDS. NEW ORDER FOR: PREDISONE 20 MG FOR 5 DOSES, ULTRAM 100 MG Q 4 HR PRN, TYLENOL 650 MG Q 6 HR, URIC ACID, CMP, CBC AND E-SED RATE. WILL ADMINSTER MEDS ORDERED.
--- NOTE | 2020-05-28 16:54 | NUR ---
nurse administed tramdol 100 mg for pt grimacing and yelling out when touched. will cont to monitor.
--- NOTE | 2020-05-28 17:54 | NUR ---
pt conts to yell out at this time. will cont to monitor.
--- NOTE | 2020-05-28 18:17 | NUR ---
first dose of K+ rider hung and running at this time.
[2020-05-28 20:00] VITALS: BP 175/61
--- NOTE | 2020-05-28 21:25 | NUR ---
B) Patient is alert and oriented to self, yelling out at times, I) Administered scheduled medications as ordered, IV resited to right forearm due to inflitration, monitored for safety, isolation protocols, R) Medication compliant, resting quietly now in bed, P) Continue plan of care.
[2020-05-29 07:22] LABS: CARBON DIOXIDE 22.7 mmol/L (21.0-32.0); CHLORIDE - SERUM 108 mmol/L (98-107); CREATININE - SERUM 0.7 mg/dL (0.6-1.3); MAGNESIUM - SERUM 1.8 mg/dL (1.8-2.4); SODIUM 141 mmol/L (136-145); UREA NITROGEN 5 mg/dL (7-18); eGFR NON AFRICAN AMERICAN > 90 mL/min (90-120)
[2020-05-29 07:24] LABS: CALC OSMOLALITY 281 mosm/kg (275-300); GLUCOSE 177 mg/dL (74-106); POTASSIUM - SERUM 4.1 mmol/L (3.5-5.1)
[2020-05-29 09:17] VITALS: BP 175/41
--- NOTE | 2020-05-29 10:31 | NUR ---
PT LAYING IN BED AT THIS TIME. PT IS CONFUSED AND ALERT TO SELF ONLY. PT CAN NOT SPEAK PROPER KAZAKH. PT CONTS TO REFUSE MEALS. CONT TO ENCOURAGE MEALS AND FLUIDS. PT COMPLIANT WITH CRUSHED MEDS, VITALS AND ASSESSMENTS. PT CONTS TO YELL OUT WITH CARE AND AT TIMES. PT HAS AN IV TO THE RIGHT FOREARM RUNNING CONTS FLUIDS. PT TOLERATING WELL. TOTAL ASSIST WITH ADLS. CAN NOT MAKE NEEDS KNOWN. CONT TO TURN AND REPOSITION Q 2 HR ADN PRN. BED ALARM IN PLACE AND ACTIVE WILL CONT PLAN OF CARE.
[2020-05-29 20:00] VITALS: BP 140/90
--- NOTE | 2020-05-29 21:24 | NUR ---
PT IS ALERT AND ORIENTED TO SELF ONLY. POOR INSIGHT INTO HIS SITUATION. HE YELLS OUT "YES" AND "HELP" WITH CARE. COMPLIANT WITH ALL MEDICATIONS. NEEDS ASSISTANCE WITH FEEDING. MONITOR FOR SAFETY.
--- NOTE | 2020-05-30 09:19 | NUR ---
Assisted MHT with a bed bath and complete linen change. The patient yells out and acts like he has some anxiety. It is difficult to understand him as he yells or says one word. He holds tightly to the bed rails when he is being rolled in the bed. Provide prescribed meds, the patient needs much assistance, he is a feeder now and staff have to assist him with needs. Monitor for medication compliance. He has an IV infusing in his right forearm and he is on contact isolation r/t COVID. Continue POC.
[2020-05-30 09:51] VITALS: BP 132/91
--- NOTE | 2020-05-30 17:51 | NUR ---
Rec'd patient this am in room. Takes meds whole without difficulty. Very pleasant but likes to stay to self but will converse with staff easily when she is by herself. Blood glucose levels and Insulin given per orders. Blood glucose level was extremly high and 24 units given per orders. Blood Glucose level at 1630 was at 90. He remains on droplet isolation but without S/SX of Covid. He is a feeder. Takes meds crushed and placed in pudding or applesauce. yells at staff when any attempts at ADLs. flat affect. At approx. 530pm, patient was upset and anxious and was grimacing and pulled his IV out. No new orders for IV therapy at this time.
--- NOTE | 2020-05-30 17:59 | NUR ---
Error in the above nurses note with doc on 2 patients. Current note should read. Rec'd this am in bed. He remains on droplet Isolation. He takes his meds crushed and in applesauce or in pudding. At approx. 530, He became very upset and anxious and pulled his IV out. No blood noted on IV tip. He is total care.
--- NOTE | 2020-05-30 18:30 | NUR ---
Patient continues to moan out. This nurse ask him if he hurts and he moans real loud and grimaces. Tramadol 2 tabs given for pain relief.
[2020-05-30 20:00] VITALS: BP 137/68
--- NOTE | 2020-05-30 21:35 | NUR ---
PT IS ALERT AND ORIENTED TO SELF ONLY. HE IS RECEIVED IN BED WITH EYES OPEN. YELLS OUT WITH CARE. CRUSHED MEDS IN PUDDING. COMPLIANT WITH ALL MEDICATIONS. PT IS A FEEDER AND ATE 2 PUDDING CUPS WITH ASSISTANCE. PT APPEARS TO HAVE ISSUES WITH SWALLOWING WATER. SPEECH THERAPY CONSULTED.
--- NOTE | 2020-05-31 07:47 | NUR ---
The patient is in his room and he is resting easily. He is pleasant, has not yelled out or moaned. He is helping more with rolling in the bed. He does not talk much. Provide prescribed meds. The patient is sleeping, but easy to awaken. Provide prescribed meds, monitor for compliance with meds. Offer fluids, at this time are offering thickened liquids as he has a bit of trouble swallowing. Night charge nurse put in an order for a speech consult. He remains on isolation per infection control protocol. Will turn every two hours and offer fluids. He needs staff to assist with feeding, although, he is getting stronger and tries to help. Continue POC.
[2020-05-31 08:00] VITALS: BP 107/56
--- NOTE | 2020-05-31 19:32 | NUR ---
RECEIVED IN BEDROOM. RESTING IN BED WITH EYES CLOSED. RESPONDS TO VOICE. CALM AND COOPERATIVE WITH CARE AND ASSESSMENT. ONLY ANSWER QUESTION WITH A, YES PLEASE, NO MOTTER WHAT IS ASK. ENCOURAGE TO EXPRESS NEEDS. CONTINUES TO REST QUIETLY IN BED. CONTINUE PLAN OF CARE.
[2020-05-31 21:02] VITALS: BP 156/62
[2020-06-01 08:00] VITALS: BP 112/49
--- NOTE | 2020-06-01 12:33 | NUR ---
Nutrition Follow-up: Diet: Diabetic + Glucerna with meals (assisted feedings) PO intake: ~12% average x last 6 meals; appears to be somewhat improved from last week. Last BM: 05/28/20. Wt: 146.6# (05/10/20)- no new weight Meds noted: metformin, kdur, megace, miralax, SSI Labs noted: POC Glu 180(H) Recommend: -Continue current diet and oral nutrition supplement. Continue with assisted feedings and encouraging PO intake at meal times. -Continue appetite stimulant as medically feasible. -Patient may still benefit from PEG placement if long-term aggressive nutrition support medically indicated and/or desired by MD/family. RD is available for TF recommendations as needed. -RD will follow-up 06/03/20.
--- NOTE | 2020-06-01 14:13 | PN ---
PATIENT:ALEJANDRA PURVIS MEDICAL RECORD: [id number] LOCATION:[facility] ADMISSION DATE: 04/08/20 PROGRESS NOTE DATE OF SERVICE: 05/28/2020 SUBJECTIVE: The patient's case was discussed. OBJECTIVE: The patient's psychiatric condition is unchanged. ASSESSMENT: Dementia. PLAN: The patient may be discharged as soon as placement is arranged. TRANSINT:[id number] Voice Confirmation ID: [id number] DOCUMENT ID: [id number] ALEJANDRA FUNEZ MD at 1413 CC: [id number] DICTATION DATE: 05/28/20 1529 SENIOR ACCOUNTING ASSOCIATE: 05/28/20 1649 ADM IN [id number] [place] [address]
--- NOTE | 2020-06-01 17:34 | NUR ---
RECEIVED IN PATIENT ROOM. CALM AND COOPERATIVE WITH CARE AND ASSESSMENT. NO BEHAVIOR ISSUES. REDIRECT AND REORIENT NEEDED. EATING AT THIS TIME. CONTINUE PLAN OF CARE.
--- NOTE | 2020-06-01 19:31 | NUR ---
RECEIVED IN BEDROOM. RESTING IN BED WITH EYES OPEN. VOICES "HELP, HELP" BUT CAN NOT VOICE NEEDS. CALM AND COOPERATIVE WITH CARE AND ASSESSMENT. VERY CONFUSED. CONTINUES TO REST QUIETLY IN BEDROOM. CONTINUEPLAN OF CARE.
[2020-06-01 22:19] VITALS: BP 85/52
[2020-06-02 08:00] VITALS: BP 145/64
--- NOTE | 2020-06-02 08:30 | NUR ---
RECEIVED IN PATIENT ROOM. CALM AND COOPERATIVE WITH CARE AND ASSESSMENT. CONFUSION. YELLS OUT AT TIMES. REDIRECT AND REORIENT NEEDED. EATING BREAKFAST AT THIS TIME. CONTINUE PLAN OF CARE.
--- NOTE | 2020-06-02 15:12 | PN ---
PATIENT:ALEJANDRA PURVIS MEDICAL RECORD: [id number] LOCATION:[facility] ADMISSION DATE: 04/08/20 PROGRESS NOTE DATE OF SERVICE: 06/01/2020 SUBJECTIVE: The patient's case was discussed with staff. OBJECTIVE: The patient's psychiatric condition is unchanged. ASSESSMENT: Dementia. PLAN: The patient can be discharged at any time. There are bureaucratic and financial obstacles that are beyond my control that are being pursued. As soon as he has an appropriate placement, I will discharge him. TRANSINT:[id number] Voice Confirmation ID: [id number] DOCUMENT ID: [id number] ALEJANDRA FUNEZ MD at 1512 CC: [id number] DICTATION DATE: 06/01/20 1619 CAN RUNNER: 06/01/20 2252 ADM IN [address] [id number] [place] [address]
[2020-06-02 16:00] LABS: BASOPHILS 0.1 % (0-2); EOSINOPHILS 0.8 % (0-7); HEMATOCRIT 39.4 % (42.0-54.0); HEMOGLOBIN 13.1 g/dL (13.5-17.5); IMMATURE GRANULOCYTES 1.2 % (0-5); LYMPHOCYTE ABS# 1.28 10x3/uL (1.32-3.57); LYMPHOCYTES 12.1 % (15-50); MCH 29.3 pg (26.0-34.0); MCHC 33.2 g/dL (31.0-37.0); MCV 88.1 fL (80.0-100.0); NEUTROPHIL ABS# 8.67 10x3/uL (1.78-5.38); NEUTROPHILS 81.8 % (40-80); RBC 4.47 10x6/uL (4.20-6.10); RDW 13.4 % (11.5-14.5); WBC 10.6 10x3/uL (4.8-10.8)
[2020-06-02 16:39] LABS: CALC OSMOLALITY 279 mosm/kg (275-300); CALCIUM 8.3 mg/dL (8.5-10.1); CARBON DIOXIDE 25.8 mmol/L (21.0-32.0); CHLORIDE - SERUM 104 mmol/L (98-107); CREATININE - SERUM 0.8 mg/dL (0.6-1.3); GLUCOSE 143 mg/dL (74-106); POTASSIUM - SERUM 4.8 mmol/L (3.5-5.1); SODIUM 139 mmol/L (136-145); UREA NITROGEN 12 mg/dL (7-18); eGFR NON AFRICAN AMERICAN > 90 mL/min (90-120)
[2020-06-02 16:46] LABS: PLATELET COUNT 488 10x3/uL (130-400)
--- NOTE | 2020-06-02 19:15 | NUR ---
RECEIVED IN BEDROOM. RESTING IN BED WITH EYES CLOSED. RESPONDS TO VOICE. CALM AND COOPERATIVE WITH CARE AND ASSESSMENT. WHEN TALKING TO PT HE REACHED OUT AND TOOK MY HAND. ASKING HIM IF HE WAS HUNGRY HE STATED "YES". ENCOURAGE TO EXPRESS NEEDS. CONTINTUE TO REST QUIETLY IN BED. CONTINUE PLAN OF CARE.
[2020-06-02 19:30] VITALS: BP 142/67
--- NOTE | 2020-06-03 08:20 | NUR ---
Nutrition Reassessment/Follow-up: Overall PO intake remains poor but somewhat improved yesterday (ate 25-100% of meals). Has to be fed. Diet: Diabetic, Glucerna TID PO intake: 27% avg x 9 meals No new wt; last wt: 146.6# (05/10); 144.4# (04/12) Last BM: 06/03 Labs noted: POC Glu 163 Meds noted: Glucophage, KDur, Megace, zinc sulfate, vit C, Florajen, Pepcid, vit D, Humalog -Nutrition needs unchanged. -Encourage PO intake and honor food preferences within diet restrictions. -Pt may benefit from nutrition support/PEG placement if PO intake does not continue to improve (if medically feasible and/or desired). -Need new wt. -RD follow-up: 06/05
--- NOTE | 2020-06-03 08:30 | NUR ---
RECEIVED IN PATIENT ROOM. RESTING IN BED WITH EYES OPEN. CALM AND COOPERATIVE WITH CARE AND ASSESSMENT. NO AGGRESSION. YELLS OUT AT TIMES. REDIRECT AND REORIENT NEEDED. EATING BREAKFAST AT THIS TIME. CONTINUE PLAN OF CARE.
--- NOTE | 2020-06-03 13:46 | PN ---
PATIENT:ALEJANDRA PURVIS MEDICAL RECORD: [id number] LOCATION:[facility] ADMISSION DATE: 04/08/20 PROGRESS NOTE DATE OF SERVICE: 06/02/2020 SUBJECTIVE: The patient's case was discussed. OBJECTIVE: The patient's psychiatric condition is unchanged. ASSESSMENT: Dementia. PLAN: The patient will be discharged as soon as arrangements can be made. Again, the obstacle is financial and administrative and not clinical. TRANSINT:[id number] Voice Confirmation ID: [id number] DOCUMENT ID: [id number] ALEJANDRA FUNEZ MD at 1346 CC: [id number] DICTATION DATE: 06/02/20 1542 ARSON INVESTIGATOR: 06/02/207 ADM IN [id number] [place] [address]
[2020-06-03 21:30] VITALS: BP 140/85
--- NOTE | 2020-06-03 21:52 | NUR ---
PT RECEIVED IN BED IN HIS ROOM. YELLS OUT WITH CARE. EATING MUCH BETTER THIS EVENING. 75% OF DINNER AND 100% OF SHERBERT. COMPLIANT WITH ALL MEDICATIONS. NO AGGRESSION NOTED. MONITOR FOR SAFETY.
[2020-06-04 08:00] VITALS: BP 138/60
--- NOTE | 2020-06-04 10:58 | PN ---
PATIENT:ALEJANDRA PURVIS MEDICAL RECORD: [id number] LOCATION:[facility] ADMISSION DATE: 04/08/20 PROGRESS NOTE DATE OF SERVICE: 06/03/2020 SUBJECTIVE: The patient's case was discussed with staff. He has no new complaint. OBJECTIVE: The patient's clinical condition is unchanged. ASSESSMENT: Dementia. PLAN: The patient can be transitioned out of the hospital as soon as placement is arranged. TRANSINT:[id number] Voice Confirmation ID: [id number] DOCUMENT ID: [id number] ALEJANDRA FUNEZ MD at 1058 CC: [id number] DICTATION DATE: 06/03/20 1519 LEATHER DRESSER: 06/03/20 1522 ADM IN [place] [id number] [place] [id number]
--- NOTE | 2020-06-04 12:19 | NUR ---
PT IS A FEEDER PER STAFF. AWAITING SWALLOW EVAL TO SEE IF DIET NEEDS CHANGED TO MECHANICAL. NO AGGRESSION NOTED. PT PLACED ON BACK DURING POSITION CHANGE. USING PILLOWS TO BRIDGE BONY AREAS TO PREVENT BREAKDOWN. MEDICATIONS GIVEN ORDERED. WILL CONTINUE TO MONITOR AND CONTINUE WITH PLAN OF CARE.
--- NOTE | 2020-06-04 14:04 | NUR ---
Rec'd patient in bed this am. A/O times one to person. Doing well. Took meds crushed and placed in applesauce. No aggressive behavior does slightly yell when ADLs are being performed. He is on thickened liquids and mech soft diet. He is total care.He has a large tumur to center of back.New order for Ultram TID.
[2020-06-04 20:07] VITALS: BP 101/81
--- NOTE | 2020-06-04 21:13 | NUR ---
PT IS ALERT AND ORIENTED TO SELF ONLY. RECEIVED IN BED WITH EYES CLOSED. CALM AND COOPERATIVE WITH STAFF. ABLE TO ANSWER VERY SIMPLE QUESTIONS. COMPLIANT WITH ALL MEDICATIONS. ASSISTED PT WITH FEEDING HS SNACK. UNABLE TO REDIRECT. RESTING CALMLY IN BED.
--- NOTE | 2020-06-05 08:40 | NUR ---
Nutrition Follow-up: PO intake remains poor. ST neri pending. Staff reports pt receiving a [facility] soft diet with thickened liquids. Pt is a feeder. Ate 0-50% of meals yesterday. Diet: Diabetic, Glucerna TID PO intake: 32% avg x 9 meals No new wt; last wt: 146.6# (05/10) Labs noted: POC Glu 204 Meds noted: Glucophage, Humalog, Megace, KDur, Pepcid, zinc sulfate, vit C, vit D -Encourage PO intake and honor food preferences within diet restrictions. -Pt may benefit from PEG placement 2/2 continued poor PO intake. -Need new wt. -RD will follow up within 3-4 days.
--- NOTE | 2020-06-05 14:12 | NUR ---
Rec'd patient lying in bed this am. He has been A/O to name and will arouse and answer simple questions when questioned. He takes his meds crushed and placed in pudding/applesauce. He has been having some difficulty with drinking non-thickened liquids. Referral in progress. He has had less behaivors with little episodes of yelling out during ADL care. He is confused and most of the time is aggressive and agitated joshua. when any ADL is attempted and he will moan and hollar.
[2020-06-05 20:00] VITALS: BP 128/24
--- NOTE | 2020-06-05 20:00 | NUR ---
RECEIVED LYING IN BED WITH EYES CLOSED. AROUSES EASILY. ALERT AND ORIENTED TO SELF ONLY. REDIRECT AND REORIENT NEEDED. COMPLIANT WITH MEDICATIONS CRUSHED IN PUDDING. CPOC.
[2020-06-06 08:00] VITALS: BP 105/50
--- NOTE | 2020-06-06 08:34 | NUR ---
The patient is awake and alert, but he does not say much, he answers yes or no questions. He is looking up at the ceiling this am. He knows his name. He has poor insight into his situation. Provide prescribed meds. The patient is compliant with meds. He denies pain and he is incontinent of bowel and bowel, staff are offering him fluids and keeping him turned, he is able to assist more with rolling. He is not yelling out as much as he was he is comprehending a little more, but remains confused and needs slow, concise sentences. Continue POC.
--- NOTE | 2020-06-06 09:15 | NUR ---
ROUNDED ON PT TO ADMIN HIS MEDS, NOTED PT IS LYING IN BED QUIETLY WITH EYES OPEN LOOKING AT CEILING. ASKED PT IF HE WAS DOING OKAY, HE STATED, "YEAH" ASKED PT IF HE WAS IN PAIN HE THEN FELL ASLEEP. CONTINUED TO ATTEMPT TO WAKE PT UP AND HE WOULD WAKE UP LONG ENOUGH TO ANSWER QUESTIONS. WILL NOTIFY PSYCH WHEN THEY ROUND ON HIM, AND WILL HOLD MEDS UNTIL FURTHER INSTRUCTED BY PHYSICIANS.
--- NOTE | 2020-06-06 10:58 | NUR ---
JENNIFER GÓMEZ APN, ROUNDED ON PT AT THIS TIME. NOTED PT IS LETHARGIC THIS MORNING, WAKES UP WHEN SPOKEN TO AND THEN GOES BACK TO SLEEP AFTER RESPONDING. PER ERICA RODRIGUEZ BUSPAR AND OKAY TO GIVE CELEXA. ALSO WILL HOLD ULTRAM. VSS. RESPIRATIONS STEADY AND UNLABORED. WILL CONTINUE TO OBSERVE.
--- NOTE | 2020-06-06 14:17 | NUR ---
LYING IN BED RESTING AT THIS TIME WITH EYES CLOSED. RESPIRATIONS STEADY AND UNLABORED. PT WAKENS BRIEFLY TO SPEECH. DENIES ANY NEEDS. NO ACUTE DISTRESS NOTED. WILL CONTINUE PLAN OF CARE.
[2020-06-06 20:00] VITALS: BP 121/34
--- NOTE | 2020-06-06 22:32 | NUR ---
RECEIVED PATIENT IN HALLWAY, HE IS CALM BUT REMAINS TO "HOLLER OUT" EVERY TIME THAT HE IS TOUCHED (DON'T KNOW WHY). COMPLIANT WITH MEDS. NO ADVERSE REACTION NOTED. HE DID WELL WITH EATING HIS SNACK AND DRINKING HIS WATER. WILL FOLLOW POC
[2020-06-07 07:52] LABS: BASOPHILS 0.2 % (0-2); EOSINOPHILS 2.4 % (0-7); HEMATOCRIT 35.4 % (42.0-54.0); HEMOGLOBIN 11.4 g/dL (13.5-17.5); IMMATURE GRANULOCYTES 0.4 % (0-5); LYMPHOCYTE ABS# 0.99 10x3/uL (1.32-3.57); LYMPHOCYTES 10.3 % (15-50); MCH 28.8 pg (26.0-34.0); MCHC 32.2 g/dL (31.0-37.0); MCV 89.4 fL (80.0-100.0); MEAN PLATELET VOLUME 9.3 fL (7.4-10.4); MONOCYTES 5.4 % (2-11); NEUTROPHIL ABS# 7.85 10x3/uL (1.78-5.38); NEUTROPHILS 81.3 % (40-80); RBC 3.96 10x6/uL (4.20-6.10); RDW 13.7 % (11.5-14.5); WBC 9.7 10x3/uL (4.8-10.8)
[2020-06-07 08:00] LABS: PLATELET COUNT 334 10x3/uL (130-400)
[2020-06-07 08:22] LABS: ALBUMIN 2.1 g/dL (3.4-5.0); ALKALINE PHOSPHATASE 59 U/L (30-120); ALT (SGPT) 28 U/L (10-68); BILIRUBIN - TOTAL 0.28 mg/dL (0.2-1.3); CALC OSMOLALITY 283 mosm/kg (275-300); CALCIUM 8.6 mg/dL (8.5-10.1); CARBON DIOXIDE 23.1 mmol/L (21.0-32.0); CHLORIDE - SERUM 107 mmol/L (98-107); CREATININE - SERUM 0.9 mg/dL (0.6-1.3); POTASSIUM - SERUM 4.7 mmol/L (3.5-5.1); PROTEIN - SERUM 5.6 g/dL (6.4-8.2); SODIUM 139 mmol/L (136-145); UREA NITROGEN 13 mg/dL (7-18); eGFR NON AFRICAN AMERICAN 86 mL/min (90-120)
[2020-06-07 08:32] LABS: GLUCOSE 210 mg/dL (74-106)
[2020-06-07 12:21] VITALS: BP 152/50
--- NOTE | 2020-06-07 17:06 | NUR ---
RECEIVED IN PATIENT ROOM. RESTING IN BED WITH EYES CLOSED. CALM AND COOPERATIVE WITH CARE AND ASSESSMENT. NO BEHAVIOR ISSUES. REDIRECT AND REORIENT NEEDED. RESTING WITH EYES OPEN AT THIS TIME. CONTINUE PLAN OF CARE.
--- NOTE | 2020-06-07 19:59 | NUR ---
RECEIVEDIN BEDROOM. SITTING IN A RECLINING CHAIR AT BEDSIDE. NOT ABLE TO COMMUNICATE NEEDS. ONLY ANSWER "YES YES" TO EVERY QUESTION. CALM AND COOPERATIVE WITH CARE AND ASSESSMENT. VERY CONFUSED. CONTINUES TO SIT CALMLY AT BEDSIDE. CONTINUE PLAN OF CARE.
[2020-06-07 20:47] VITALS: BP 168/87
[2020-06-08 08:16] VITALS: BP 130/64
--- NOTE | 2020-06-08 09:00 | NUR ---
REC'D PT IN BED WITH EYES CLOSED. RESPONDS TO VERBAL STIMULI. CALM AND COOPERATIVE WITH ASSESSMENT. PRESCRIBED MEDS PROVIDED. MED COMPLIANT. PT YELLS OUT DURING KAYLEIGH-CARE. REDIRECT AND REORIENT NEEDED. FALL PRECAUTIONS IN PLACE. WILL CPOC.
--- NOTE | 2020-06-08 09:15 | NUR ---
Nutrition Follow-up: Patient needs assistance with feeding and is eating between 15-100% of meals and "patient has started eating again" per BRICK WASHER notes. Staff is encouraging small snacks to improve intake. Diet: Diabetic Mech Soft [place] Thick PO intake: ~35% average x last 6 meals (varied 10-100%) Last BM: 06/05/20. Wt: 146.6# (05/10/20) Meds noted: metformin, k-dur, megace ES, SSI Labs noted: Glu 210(H), POC Glu 274(H) Recommendations: -Continue PO diet per RESOLUTION REP recommendations and honor food preferences within diet restrictions. -Contiue small frequent meals -Pt may benefits from PEG placement for long-term nutrition support 2/2 continued inadequate PO intake. -New weight as able. -RD will follow up 06/10/20.
--- NOTE | 2020-06-08 10:03 | NUR ---
SW CHECKED IN WITH APS. THEY STILL DO NOT HAVE FINANCIAL PPW. APS WORKER TYREL STATED THIS IS WEEK FOUR AND IT SHOULD BE INTO THEM THIS WEEK. SW CONTACTED [facility] WAS REFERRED TO LET THEM KNOW THE UPDATE. PT HAS BEEN ACCEPTED CLINICALLY AT THE HALF-WAY. THEY ARE WAITINGON FINANCIALS. SW HAS BEEN IN CONTACT WITH APS THE PATIENT'S ENTIRE STAY. TYREL AT [facility] STATED THE TYPE OF CARD PT HAS TAKES A LONG PERIOD OF TIME TO GET FINANCIAL STATEMENTS. KENIA WILL CONTINUE FOLLOWING UP.
--- NOTE | 2020-06-08 15:12 | PN ---
PATIENT:ALEJANDRA PURVIS MEDICAL RECORD: [id number] LOCATION:[facility] ADMISSION DATE: 04/08/20 PROGRESS NOTE DATE OF SERVICE: 06/04/2020 SUBJECTIVE: The patient's case was discussed with staff. OBJECTIVE: The patient's clinical condition is unchanged. ASSESSMENT: Dementia. PLAN: The patient may be discharged as soon as arrangements can be made for his placement. I have no new information regarding progress. TRANSINT:[id number] Voice Confirmation ID: [id number] DOCUMENT ID: [id number] ALEJANDRA FUNEZ MD at 1512 CC: [id number] DICTATION DATE: 06/04/20 1629 ENGINEERING COORDINATOR: 06/04/20 1651 ADM IN [id number] [place] [address]
--- NOTE | 2020-06-08 19:37 | NUR ---
RECEIVED IN BEDROOM. RESTING IN BED WITH EYES CLOSED. RESPONDS TO VOICE. UNABLE TO EXPRESS NEEDS. CALM AND COOPERATIVE WITH CARE AND ASSESSMENT. CONFUSED. REDIRECT AND REORIENT NEEDED. CONTINUES TO REST QUIETLY IN BED. CONTINUE PLAN OF CARE.
[2020-06-08 20:17] VITALS: BP 120/95
[2020-06-09 08:00] VITALS: BP 140/45
[2020-06-09 12:42] LABS: BASOPHILS 0.2 % (0-2); EOSINOPHILS 0.6 % (0-7); HEMATOCRIT 37.5 % (42.0-54.0); HEMOGLOBIN 12.2 g/dL (13.5-17.5); IMMATURE GRANULOCYTES 0.2 % (0-5); LYMPHOCYTE ABS# 1.39 10x3/uL (1.32-3.57); LYMPHOCYTES 8.7 % (15-50); MCH 29.3 pg (26.0-34.0); MCHC 32.5 g/dL (31.0-37.0); MCV 89.9 fL (80.0-100.0); MEAN PLATELET VOLUME 9.4 fL (7.4-10.4); MONOCYTES 6.7 % (2-11); NEUTROPHILS 83.6 % (40-80); RBC 4.17 10x6/uL (4.20-6.10); RDW 13.9 % (11.5-14.5)
[2020-06-09 12:43] LABS: PLATELET COUNT 403 10x3/uL (130-400)
[2020-06-09 13:06] LABS: ALBUMIN 2.2 g/dL (3.4-5.0); ALKALINE PHOSPHATASE 63 U/L (30-120); ALT (SGPT) 36 U/L (10-68); BILIRUBIN - TOTAL 0.58 mg/dL (0.2-1.3); CALC OSMOLALITY 285 mosm/kg (275-300); CALCIUM 8.7 mg/dL (8.5-10.1); CARBON DIOXIDE 23.4 mmol/L (21.0-32.0); CHLORIDE - SERUM 106 mmol/L (98-107); GLUCOSE 114 mg/dL (74-106); POTASSIUM - SERUM 4.5 mmol/L (3.5-5.1); PROTEIN - SERUM 6.1 g/dL (6.4-8.2); SODIUM 141 mmol/L (136-145); UREA NITROGEN 25 mg/dL (7-18); eGFR NON AFRICAN AMERICAN 76 mL/min (90-120)
--- NOTE | 2020-06-09 14:08 | PN ---
PATIENT:ALEJANDRA PURVIS MEDICAL RECORD: [id number] LOCATION:[facility] ADMISSION DATE: 04/08/20 PROGRESS NOTE DATE OF SERVICE: 06/08/2020 SUBJECTIVE: The patient's case was discussed with staff. OBJECTIVE: The patient's clinical condition is unchanged from a psychiatric standpoint. ASSESSMENT: No change in diagnosis. PLAN: The patient will be discharged as soon as arrangements are made. The impediment is and was continues to be financial. TRANSINT:[id number] Voice Confirmation ID: [id number] DOCUMENT ID: [id number] ALEJANDRA FUNEZ MD at 1408 CC: [id number] DICTATION DATE: 06/08/20 1547 SEWING LINE BALER: 06/08/20 2259 ADM IN [id number] [place] [address]
--- NOTE | 2020-06-09 16:30 | NUR ---
Received patient in bed with eyes open. Assessment completed at this time. Prescribed medications provided as ordered. Possible aspiration noted per staff. Speech at bedside to complete speech eval. Recommendations to change diet to n.p.o. Chest x-ray completed earlier this shift. Left lower pneumonia noted. Azithromycin 500 mg daily p.o. initial dose given per order. Rocephin IM 1 g administered initial dose per order. Respiratory at bedside administer scheduled updraft. present on the unit. Situation discussed with . stated " I will review meds and make appropriate changes." Hospice consulted ordered per Dr. Gutierrez at this time. Fall precautions in place for safety. Will continue plan of care. Unable to reach APS at this time to report change in status. Staff will continue to attempt to notify APS.
--- NOTE | 2020-06-09 18:12 | NUR ---
This nurse notified Filipe guajardo with APS contact number [phone] regarding patient's change in status. Mr. Guajardo stated "that patient is not in APS custody at this time." APS will pick up operator custody when they receive financials in order to place him in a fci facility. APS worker asked this nurse in this situation with no family, what would be next step if APS was not involved. This nurse explained to APS worker I would contact dialysis social worker at this time. Staff will discuss case with dialysis social worker and Dr. Gutierrez. bench worker hollow handle neli notified at this time and aware of situation. Neli dialysis social worker returned phone call. bench worker hollow handle stated " I spoke with [facility] day camp unit leader, Dr. Gutierrez and APS child support case officer Filipe Guajardo regarding pt's change in status. Hospice consulted. bench worker hollow handle stated " I will follow up with hospice Tomorrow." Will continue plan of care.
--- NOTE | 2020-06-09 19:57 | NUR ---
RECEIVED IN BEDROOM. RESTING IN BED WITH EYES CLOSED. YELLS OUT AT TIMES. UNABLE TO EXPRESS NEEDS. CALM AND COOPERATIVE WITH CARE AND ASSESSMENT. VERY CONFUSED. REDIRECT AND REORIENT NEEDED. CONTINUES TO REST IN BED WITH EYES CLOSED. CONTINUE PLAN OF CARE.
[2020-06-09 20:00] VITALS: BP 121/49
[2020-06-10 07:59] VITALS: BP 115/52
--- NOTE | 2020-06-10 08:27 | PN ---
PATIENT:ALEJANDRA PURVIS MEDICAL RECORD: [id number] LOCATION:[facility] ADMISSION DATE: 04/08/20 PROGRESS NOTE DATE OF SERVICE: 06/09/2020 SUBJECTIVE: The patient's case was discussed with staff. OBJECTIVE: The patient's psychiatric condition has not changed. Apparently, he has developed a pneumonia. ASSESSMENT: Dementia. PLAN: The patient may be discharged as soon as placement is arranged. TRANSINT:[id number] Voice Confirmation ID: [id number] DOCUMENT ID: [id number] ALEJANDRA FUNEZ MD at 0827 CC: [id number] DICTATION DATE: 06/09/20 1532 POST MANAGER: 06/09/20 2256 ADM IN [place] [place] [address]
--- NOTE | 2020-06-10 08:59 | NUR ---
PAPERWORK FAXED TO HOSPICE THIS SHIFT.
--- NOTE | 2020-06-10 09:50 | NUR ---
Nutrition Re-Assessment Seen by WAITER/WAITRESS yesterday and it was recommended for patient to be NPO with consideration of alternate means of nutrition 2/2 coughing with bites of puree Diet: Diabetic Honey Thick Mech Soft with Ground Meat PO intake: ~24% average x last 9 meals (varied 0-75%), ate 0% yesterday Last BM: 06/09/20. Wt: 146.6# (05/10/20); Admit Wt: 145# (04/08/21) Meds noted: probiotics, metformin, rocephin, zithromax, kdur, megace ES, SSI Labs noted: POC Glu 362(H), alb 2.2(L) Estimated nutrition needs: 1625-1950cal (25-30kcal/kg), 65-78gms PRO (1-1.2gms/kg), 1625-1950mL fluid (or per MD) Nutrition diagnosis: Inadequate energy intake r/t swallowing difficulty AEB WAITER/WAITRESS recommends NPO and recorded h/o inadequate PO intake. Recommendations: -Nutrition support. NGT vs PEG placement for long-term nutrition and hydration. -If EN to be started, RD recommends: Glucerna 1.5 @ 45mL/hr + H2O @ 35mL/hr. This will provide: 1620kcal, 89gms protein, and 1660mL free water. -Needs new weight as medically feasible. -RD will follow-up 06/12/20.
[2020-06-10 10:17] LABS: BASOPHILS 0.1 % (0-2); EOSINOPHILS 0.1 % (0-7); HEMATOCRIT 35.3 % (42.0-54.0); HEMOGLOBIN 11.5 g/dL (13.5-17.5); IMMATURE GRANULOCYTES 0.3 % (0-5); LYMPHOCYTE ABS# 1.13 10x3/uL (1.32-3.57); LYMPHOCYTES 6.8 % (15-50); MCH 29.3 pg (26.0-34.0); MCHC 32.6 g/dL (31.0-37.0); MCV 89.8 fL (80.0-100.0); MEAN PLATELET VOLUME 9.9 fL (7.4-10.4); MONOCYTES 6.5 % (2-11); NEUTROPHIL ABS# 14.32 10x3/uL (1.78-5.38); NEUTROPHILS 86.2 % (40-80); PLATELET COUNT 367 10x3/uL (130-400); RBC 3.93 10x6/uL (4.20-6.10); RDW 14.2 % (11.5-14.5); WBC 16.6 10x3/uL (4.8-10.8)
[2020-06-10 10:25] LABS: ALBUMIN 2.1 g/dL (3.4-5.0); ANION GAP 18.5 mmol/L (8-16); BILIRUBIN - TOTAL 0.48 mg/dL (0.2-1.3); CALCIUM 8.6 mg/dL (8.5-10.1); CARBON DIOXIDE 21.4 mmol/L (21.0-32.0); POTASSIUM - SERUM 4.9 mmol/L (3.5-5.1); PROTEIN - SERUM 5.4 g/dL (6.4-8.2)
[2020-06-10 10:41] LABS: CREATININE - SERUM 1.4 mg/dL (0.6-1.3)
--- NOTE | 2020-06-10 10:55 | NUR ---
LAB CALLED WITH A CRITICAL LAB OF GLUCOSE 425 MG/DL. NEW ORDER FOR AC&HS LOW DOSE SLIDING SCALE. NEW ORDER PER Santo. IVY KAUR: 12 UNITS OF LISPRO INSULIN AND AC&HS LOW DOSE SLIDING SCALE. WILL ADMINISTER NOW.
--- NOTE | 2020-06-10 10:58 | NUR ---
HOSPICE HERE TO TREAT AND EVAL FOR APPOPRIATE FOR ADMISSION. NOT APPOPRIATE AT THIS TIME.
--- NOTE | 2020-06-10 13:58 | NUR ---
DR. PRADO GAVE NEW ORDERS: ADMIT TO MED [address] PRADO, IVF NS @ 125 ML/HR, ROCEPHIN 1 GRAM IV Q 24 HR X 7DAYS, VANCOMYCIN 1 GRAM IV Q 24 HOUR X 7 DAYS, PHARMACY TO DOSE, NPO, LOVENOX INJ 40 MG SC Q DAY, CBC, CMP Q AM, CONSULT PULMONARY MEDICINE, FBSB QID LISP INSULIN SC LOW RESISTENCE SLIDING SCALE. NURSE CALLED AUTOMOTIVE TECHNICIAN IN REGARDS TO NEEDING A BED FOR TRANSFER. AWAITING BED ASSIGNMENT.
--- NOTE | 2020-06-10 15:33 | NUR ---
pt laying in bed at this time. pt eyes closed. pt conts on NPO at this time. pt is restless at times. pt medications were held. pt is a total assist. requires all assistance with adls. turn and reposition q 2 hr and prn. pt is awaiting transfer to [facility] at this time. pt confused and disoriented. alert to person only. cont on IM antibiotics at this time. will attempt IV at this time. bed alarm in place and active. will cont plan of care.
--- NOTE | 2020-06-10 16:33 | NUR ---
IV obtained in R wrist. one attempt. pt tolerated well.
--- NOTE | 2020-06-10 17:19 | NUR ---
nurse called report to kiki on med 2. History given, ST hx-NPO,increase in FSBS, temp and meds given, APS status,IV placement, chest x-ray and labs, all history given. nurse gave pt room 2123. pt tolerated tranfer well. Patient hat, wallet and shoes placed on pt's counter at this time. nurse offered pts wallet to nurse she stated she did not want it. this nurse placed wallet on the counter in pt room at this time. 4x staff members transferred pt to bed in room. pt rolled and placed a pillow under right side. Siderails up 2x, bed alarm in place and active. pt did not have alot of belongings upon admission. Pt was stable at time of d/c. Mask donned on pt for transport. nurse did educate on language barrier. she verbaizied understanding.
== END 2020-06-10 17:56 | disposition short-term general hospital (02) | DRG 884 ==
LOC: D.PSYCH 17:08
PROVIDERS: Family Medicine; ADMIT Psychiatry & Neurology Psychiatry; ATTEND Psychiatry & Neurology Psychiatry
DX: F01.51 Vascular dementia, unspecified severity, with behavioral disturbance (principal); U07.1 COVID-19; J12.82 Pneumonia due to coronavirus disease 2019; N39.0 Urinary tract infection, site not specified; E11.9 Type 2 diabetes mellitus without complications; E55.9 Vitamin D deficiency, unspecified; I11.0 Hypertensive heart disease with heart failure; I50.9 Heart failure, unspecified; E78.5 Hyperlipidemia, unspecified; R22.2 Localized swelling, mass and lump, trunk; F41.8 Other specified anxiety disorders; R63.0 Anorexia; R13.10 Dysphagia, unspecified; M79.641 Pain in right hand

== ENCOUNTER 2020-06-10 17:59 | Inpatient (IN) | payer MEDICARE, MEDICAID ==
[~2020-06-10] VITALS: Ht 167.6 cm; Wt 66.2 kg
[~2020-06-10 17:59] MED LIST changes: +GEODON20 MG PO; +LIPITOR10 MG PO; +LISINOPRIL10 MG PO; +NAMENDA5 MG PO; +VITAMIN D PO
[2020-06-10 18:26] VITALS: BP 115/52; BMI 23.6
--- NOTE | 2020-06-10 19:20 | NUR ---
LEFT MESSAGE WITH DR AMADOR ANSWERING SERVICE THAT I HAVE A CONSULT FOR WORSENING PNEUMONIA.
[2020-06-10 21:02] VITALS: BP 139/89
[2020-06-11 01:31] VITALS: BP 161/70
--- NOTE | 2020-06-11 05:33 | NUR ---
I have reviewed this patient and I concur with the Shift Assessment completed by the Licensed Practical Nurse today this shift.
[2020-06-11 05:45] VITALS: BP 104/40
[2020-06-11 06:59] LABS: ANION GAP 15.5 mmol/L (8-16); CALCIUM 8.7 mg/dL (8.5-10.1); CARBON DIOXIDE 22.7 mmol/L (21.0-32.0); CREATININE - SERUM 1.2 mg/dL (0.6-1.3); POTASSIUM - SERUM 4.2 mmol/L (3.5-5.1)
[2020-06-11 07:12] VITALS: BP 187/79
[2020-06-11 07:14] LABS: HEMATOCRIT 33.4 % (42.0-54.0); LYMPHOCYTE ABS# 0.94 10x3/uL (1.32-3.57); MCH 29.4 pg (26.0-34.0); MCHC 32.9 g/dL (31.0-37.0); MCV 89.3 fL (80.0-100.0); MEAN PLATELET VOLUME 10.3 fL (7.4-10.4); NEUTROPHIL ABS# 14.41 10x3/uL (1.78-5.38); PLATELET COUNT 366 10x3/uL (130-400); RBC 3.74 10x6/uL (4.20-6.10); RDW 14.4 % (11.5-14.5); WBC 16.5 10x3/uL (4.8-10.8)
[2020-06-11 11:46] VITALS: Ht 167.6 cm; Wt 66.2 kg
[2020-06-11 14:05] LABS: LYMPHOCYTES 5 % (15-50); MONOCYTES 11 % (2-11); NEUTROPHILS 81 % (40-80); PLATELET ESTIMATE NORMAL
[2020-06-11 15:16] VITALS: BP 171/72
--- NOTE | 2020-06-11 15:37 | NUR ---
1315 DR PRADO NOTIFIED OF GLUCOSE 427. NEW ORDERS FOR LANTUS, ACHS FINGERSTICKS W/ SS INSULIN & 18 UNITS NOW OF SLIDING SCALE TO BE GIVEN.
--- NOTE | 2020-06-11 18:50 | NUR ---
CATAPRESS TTS-2 PATCH APPLIED TO LEFT POSTERIOR SHOULDER. 06/11/20 FENTANYL PATCH NOTED TO RIGHT ANTERIOR CHEST WALL. DATED 06/09/20
[2020-06-11 19:30] VITALS: BP 162/82
[2020-06-12 00:38] VITALS: BP 169/74
--- NOTE | 2020-06-12 04:18 | NUR ---
PT ABLE TO RESPOND YES/NO WHEN ASKED IF IN PAIN OR IF THIRSTY. PT PADDING CHANGED EVERY HOUR DUE TO WETNESS FROM URINATION AND X 2 BOWEL MOVEMENTS. WHEN WET PT MOANS OUT. THERE IS A FENTENYLE PATCH TO LEFT COLLAR BONE DATED FOR FOR 06/09/20. PT VSS. O2-97% BED LOW CALL LIGHT WITHIN REACH. WILL CONTINUE TO MONITOR
[2020-06-12 04:32] VITALS: BP 140/70
[2020-06-12 05:32] LABS: BASOPHILS 0.1 % (0-2); EOSINOPHILS 1.8 % (0-7); HEMATOCRIT 32.9 % (42.0-54.0); HEMOGLOBIN 10.6 g/dL (13.5-17.5); IMMATURE GRANULOCYTES 0.4 % (0-5); LYMPHOCYTE ABS# 0.94 10x3/uL (1.32-3.57); LYMPHOCYTES 6.9 % (15-50); MCHC 32.2 g/dL (31.0-37.0); MCV 90.1 fL (80.0-100.0); MONOCYTES 4.6 % (2-11); NEUTROPHIL ABS# 11.74 10x3/uL (1.78-5.38); NEUTROPHILS 86.2 % (40-80); PLATELET COUNT 351 10x3/uL (130-400); RBC 3.65 10x6/uL (4.20-6.10); RDW 14.6 % (11.5-14.5); WBC 13.6 10x3/uL (4.8-10.8)
[2020-06-12 06:33] LABS: ALBUMIN 1.7 g/dL (3.4-5.0); BILIRUBIN - TOTAL 0.28 mg/dL (0.2-1.3); CALCIUM 8.3 mg/dL (8.5-10.1); CARBON DIOXIDE 24.4 mmol/L (21.0-32.0); CREATININE - SERUM 1.1 mg/dL (0.6-1.3); MAGNESIUM - SERUM 2.2 mg/dL (1.8-2.4); PHOSPHOROUS 2.4 mg/dL (2.5-4.9); PROTEIN - SERUM 6.1 g/dL (6.4-8.2)
[2020-06-12 06:38] LABS: ANION GAP 12.8 mmol/L (8-16); POTASSIUM - SERUM 3.2 mmol/L (3.5-5.1)
[2020-06-12 08:44] VITALS: BP 156/66
[2020-06-12 12:07] VITALS: BP 136/52
--- NOTE | 2020-06-12 13:16 | NUR ---
DR PRADO ROUNDING WITH PT. ORDERED FENTANYL DURAGESIC Q72 HOUR PT MUCH MORE VERBAL TODAY THAN PREVIOUS SHIFTS. TOLERATING ORAL INTAKE OF PUREED FOOD & THICKENED LIQUIDS. CONTINUES TO YELL OUT WITH REPOSITIONING
[2020-06-12 15:53] VITALS: BP 164/69
[2020-06-12 19:39] VITALS: BP 144/28
[2020-06-13 00:22] VITALS: BP 131/49
[2020-06-13 05:30] VITALS: BP 136/74
[2020-06-13 08:14] VITALS: BP 127/82
[2020-06-13 10:47] VITALS: BP 147/96
[2020-06-13 15:10] VITALS: BP 149/58
[2020-06-13 20:30] VITALS: BP 140/52
[2020-06-14 00:30] VITALS: BP 144/50
[2020-06-14 04:30] VITALS: BP 162/54
[2020-06-14 06:02] LABS: BASOPHILS 0.2 % (0-2); EOSINOPHILS 4.3 % (0-7); HEMATOCRIT 29.5 % (42.0-54.0); HEMOGLOBIN 9.6 g/dL (13.5-17.5); IMMATURE GRANULOCYTES 1.2 % (0-5); LYMPHOCYTE ABS# 0.93 10x3/uL (1.32-3.57); LYMPHOCYTES 8.9 % (15-50); MCH 28.7 pg (26.0-34.0); MCHC 32.5 g/dL (31.0-37.0); MEAN PLATELET VOLUME 10.1 fL (7.4-10.4); MONOCYTES 4.9 % (2-11); NEUTROPHILS 80.5 % (40-80); PLATELET COUNT 314 10x3/uL (130-400); RBC 3.35 10x6/uL (4.20-6.10); RDW 14.7 % (11.5-14.5); WBC 10.4 10x3/uL (4.8-10.8)
[2020-06-14 06:16] LABS: MCV 88.1 fL (80.0-100.0)
[2020-06-14 07:13] LABS: CALCIUM 7.3 mg/dL (8.5-10.1); CARBON DIOXIDE 20.9 mmol/L (21.0-32.0); CREATININE - SERUM 0.8 mg/dL (0.6-1.3); MAGNESIUM - SERUM 1.9 mg/dL (1.8-2.4); PHOSPHOROUS 2.9 mg/dL (2.5-4.9); SODIUM 147 mmol/L (136-145); eGFR NON AFRICAN AMERICAN > 90 mL/min (90-120)
[2020-06-14 07:15] LABS: CALC OSMOLALITY 297 mosm/kg (275-300); GLUCOSE 178 mg/dL (74-106); POTASSIUM - SERUM 3.7 mmol/L (3.5-5.1); UREA NITROGEN 18 mg/dL (7-18)
--- NOTE | 2020-06-14 07:20 | NUR ---
RECIEVE REPORT. RESTING IN BED WITH EYES CLOSED. NO SIGNS OF DISTRESS. CONTINUE PLAN OF CARE AND SAFETY PRECAUTIONS.
[2020-06-14 07:24] LABS: CHLORIDE - SERUM 116 mmol/L (98-107)
[2020-06-14 08:00] VITALS: BP 156/59
[2020-06-14 12:00] VITALS: BP 150/57
[2020-06-14 16:00] VITALS: BP 164/91
[2020-06-14 19:29] VITALS: BP 159/82
--- NOTE | 2020-06-14 23:15 | NUR ---
LARGE AND LOOSE BOWEL INCONTINENT EPISODE IN BED. LINENS CHANGED, PT BATHED, MEPILEX ON COCCYX/BUTTOCKS C/D/I, REPOSITIONED FOR COMFORT, OFFERED ASSIST WITH THICKENED ORANGE JUICE, ACCEPTED. CPOC.
[2020-06-15 04:00] VITALS: BP 168/80
--- NOTE | 2020-06-15 07:20 | NUR ---
RECIEVE REPORT. RESTING IN BED WITH EYES CLOSED. NO SIGNS OF DISTRESS. CONTINUE PLAN OF CARE AND SAFETY PRECAUTIONS.
[2020-06-15 08:01] VITALS: BP 152/67
--- NOTE | 2020-06-15 11:57 | MORECARE ---
CASE MANAGEMENT DISCHARGE SUMMARY PATIENT: ALEJANDRA PURVIS UNIT: [id number] ADM DATE: 06/10/20 AGE: 80 : 38 SEX: M ROOM/BED: D.2124 AUTHOR: FIDE WHITT PHYSICIAN: REFERRING PHYSICIAN: NOLVIA PRADO MD DATE OF SERVICE: 06/15/20 Discharge Plan Patient Name: ALEJANDRA PURVIS Facility: [facility]:[place] : 1940 Planned Disposition: Half-Way Facility Anticipated Discharge Date: Discharge Date: Expected LOS: Initial Reviewer: [id number] Initial Review Date: 06/15/2020 Generated: 06/15/20 12:56 pm Comments DCP- Discharge Planning Updated by [id number]: Clarisa Wong on 06/15/20 10:[address] DAMASO faxed by [facility] in [facility], awaiting determination. They had approved once, but [facility] states it has . DCPIA - Discharge Planning Initial Assessment Updated by [email or web address]: Clarisa Wong on 06/15/20 11:56 am * Is the patient Alert and Oriented? No * Preadmission Environment Other * Other Environment [facility] inpatient psychiatric unit * Facility Name [facility] * ADLs Total Dependent * List name and contact numbers for known caregivers / representatives who currently or will assist patient after discharge: Filipe Ochoa [facility] [place] - [phone] * Verbal permission to speak to the caregivers and representatives has been obtained from the patient. Yes * Community resources currently utilized APS/CPS * Please name any agencies selected above. Filipe Ochoa * Additional services required to return to the preadmission environment? Yes * Can the patient safely return to the preadmission environment? Yes * Has this patient been hospitalized within the prior 30 days at any hospital? No External Providers External Provider: [facility] and [facility] Next Contact Date: Service Request Date: Service Type: Resolution: Reviewer: Comments: Patient Name: ALEJANDRA PURVIS Page 35620 at 1157 All edits/amendments must be made on the electronic document DICTATION DATE: 06/15/20 1157 MACHINE ADJUSTER LEADER CASE TRIM: SABI 06/15/20 1157 RPT#: [id number] DC DATE: STATUS: ADM IN [facility] [address] [facility] [place] [address] END OF REPORT
[2020-06-15 12:01] VITALS: BP 170/76
--- NOTE | 2020-06-15 12:04 | MORECARE ---
CASE MANAGEMENT DISCHARGE SUMMARY PATIENT: ALEJANDRA PURVIS UNIT: [id number] ADM DATE: 06/10/20 AGE: 80 : 38 SEX: M ROOM/BED: D.2124 AUTHOR: PERI,DOC PHYSICIAN: REFERRING PHYSICIAN: NOLVIA GIBBONS MD DATE OF SERVICE: 06/15/20 Discharge Plan Patient Name: ALEJANDRA PURVIS Facility: [facility]:[place] : 1940 Planned Disposition: [facility]dc Facility Anticipated Discharge Date: Discharge Date: Expected LOS: Initial Reviewer: [id number] Initial Review Date: 06/15/2020 Generated: 06/15/20 1:03 pm Comments DCP- Discharge Planning Updated by [email or web address]: Clarisa Wong on 06/15/20 10:[address] Patient Name: ALEJANDRA PURVIS Admission Status: Elective Accout number: [id number] Admission Date: 06-10-2020 : 1940 Admission Diagnosis:COVID-19 Attending: NOLVIA GIBBONS Current LOS: 5 Anticipated DC Date: Planned Disposition: [facility] Facility Primary Insurance: [facility] MEDICARE SOLUTIONS Discharge Planning Comments: CM called Filipe Ochoa, patient's APS family independence case manager, at [phone] to discuss discharge planning/needs. I did not receive an answer with Filipe Ochoa and left my call back number on his answering machine. Dr. Gibbons states patient has been accepted to [facility]. I received a DAMASO back today stating NON PASSR patient and faxed that along with updated clinical notes to [facility]. CM will continue to follow and assist with discharge planning/needs. Distribution Associate: Clarisa Wong DCP- Discharge Planning Updated by [id number]: Clarisa Wong on 06/15/20 10:[address] DAMASO faxed by Gertrude in [facility], awaiting determination. They had approved once, but [facility] states it has . DCPIA - Discharge Planning Initial Assessment Updated by [id number]: Clarisa Wong on 06/15/20 11:56 am * Is the patient Alert and Oriented? No * Preadmission Environment Other * Other Environment [facility] inpatient psychiatric unit * Facility Name [facility] * ADLs Total Dependent * List name and contact numbers for known caregivers / representatives who currently or will assist patient after discharge: Filipe Ochoa [facility] - [phone] * Verbal permission to speak to the caregivers and representatives has been obtained from the patient. Yes * Community resources currently utilized APS/CPS * Please name any agencies selected above. Filipe Ochoa * Additional services required to return to the preadmission environment? Yes * Can the patient safely return to the preadmission environment? Yes * Has this patient been hospitalized within the prior 30 days at any hospital? No Last DP export: 06/15/20 10:57 am Patient Name: ALEJANDRA PURVIS Page 92997 at 1204 All edits/amendments must be made on the electronic document DICTATION DATE: 06/15/20 120 TOOL FILER HAND: SABI 06/15/20 1204 RPT#: [id number] DC DATE: STATUS: ADM IN [facility] [address] [place] [address] END OF REPORT
--- NOTE | 2020-06-15 13:06 | MORECARE ---
CASE MANAGEMENT DISCHARGE SUMMARY PATIENT: ALEJANDRA PURVIS UNIT: [id number] ADM DATE: 06/10/20 AGE: 80 : 38 SEX: M ROOM/BED: D.2124 AUTHOR: PERI,DOC PHYSICIAN: REFERRING PHYSICIAN: NOLVIA GIBBONS MD DATE OF SERVICE: 06/15/20 Discharge Plan Patient Name: ALEJANDRA PURVIS Facility: [facility]:[place] : 1940 Planned Disposition: Alf Facility Anticipated Discharge Date: Discharge Date: Expected LOS: Initial Reviewer: [email or web address] Initial Review Date: 06/15/2020 Generated: 06/15/20 2:05 pm Comments DCP- Discharge Planning Updated by [id number]: Clarisa Wong on 06/15/20 11:[address] CM received a call from Filipe Ochoa from [facility]. He states APS has an open investigation with this patient. They will not take hold until patient is placed in a snf. They are currently waiting on [employer] to send his bank statements. He states they expect to have the statements by the end of the week. [facility] has accepted the patient for mri special procedures technologist care, they just are awaiting bank statements. He tells me the patient has been unable to participate to receive shelter therapy. Plan will continue to be [facility] to a mri special procedures technologist care bed. CM will continue to follow and assist with discharge planning/needs. DCP- Discharge Planning Updated by [email or web address]: Clarisa Wong on 06/15/20 10:[address] Patient Name: ALEJANDRA PURVIS Admission Status: Elective Accout number: [id number] Admission Date: 06-10-2020 : 1940 Admission Diagnosis:COVID-19 Attending: NOLVIA GIBBONS Current LOS: 5 Anticipated DC Date: Planned Disposition: Alf Facility Primary Insurance: [facility] MEDICARE SOLUTIONS Discharge Planning Comments: CM called Filipe Ochoa, patient's APS case planner, at [phone] to discuss discharge planning/needs. I did not receive an answer with Filipe Ochoa and left my call back number on his answering machine. Dr. Gibbons states patient has been accepted to [facility]. I received a DAMASO back today stating NON PASSR patient and faxed that along with updated clinical notes to [facility]. CM will continue to follow and assist with discharge planning/needs. Payroll Services Analyst: Clarisa Marvin DCP- Discharge Planning Updated by [id number]: Clarisa Wong on 06/15/20 10:[address] DAMASO faxed by Gertrude in [facility], awaiting determination. They had approved once, but [facility] states it has . DCPIA - Discharge Planning Initial Assessment Updated by [id number]: Clarisa Wong on 06/15/20 11:56 am * Is the patient Alert and Oriented? No * Preadmission Environment Other * Other Environment [facility] inpatient psychiatric unit * Facility Name [facility] * ADLs Total Dependent * List name and contact numbers for known caregivers / representatives who currently or will assist patient after discharge: Filipe Ochoa [facility] - [phone] * Verbal permission to speak to the caregivers and representatives has been obtained from the patient. Yes * Community resources currently utilized APS/CPS * Please name any agencies selected above. Filipe Ochoa * Additional services required to return to the preadmission environment? Yes * Can the patient safely return to the preadmission environment? Yes * Has this patient been hospitalized within the prior 30 days at any hospital? No Coverage Notice Reviewer: [id number] Patricia Wong Notice Issued Date-Time: 06/15/2020 12:56 Notice Type: Patient Choice Letter Notice Delivered To: Other Relationship to Patient: Rural Mail Contractor Name: PEYMAN Moe Delivery Method: PHONE - Phone Maile Days: Prior Verbal Notification: Recipient Understood Notice: Yes Recipient Signature: Med Rec Note Co-signed by Attending: Coverage Notice Comment: [facility] Last DP export: 06/15/20 11:04 am Patient Name: ALEJANDRA PURVIS Page 48032 at 1306 All edits/amendments must be made on the electronic document DICTATION DATE: 06/15/20 1305 TILE MASON: SABI 06/15/20 1305 RPT#: [id number] DC DATE: STATUS: ADM IN [facility] [address] [place] [address] END OF REPORT
--- NOTE | 2020-06-15 13:41 | NUR ---
Nutrition Follow-up: Pt confused. Requires assistance with meals. Ate 0-100% of meals yesterday. Awaiting placement. Diet: Regular, Pureed with Thickened Liquids PO intake: 63% avg x 3 meals yesterday No new wt; last wt: 146# (06/11) Last BM: 06/15 (diarrhea) Labs noted (06/14): Na 147, Glu 178, Ca 7.3 Meds noted: Lantus, Humalog, electrolyte protocol -Encourage PO intake and honor food preferences within diet restrictions. -Offer nutrition supplements. -Need new wt. -RD will follow up within 3-4 days.
[2020-06-15 15:49] VITALS: BP 148/95
--- NOTE | 2020-06-15 16:18 | NUR ---
CONFUSED. GRUNTS WHEN TURNED. BED BATH AND LINEN CHANGE COMPLETE. NO SIGNS OF DISTRESS. CONTINUE PLAN OF CARE AND SAFETY PRECAUTIONS.
[2020-06-15 18:26] VITALS: BP 166/70
[2020-06-15 23:04] VITALS: BP 137/43
--- NOTE | 2020-06-16 01:15 | NUR ---
RESTING WITH EYES CLOSED, RESPERATIONS EVEN, NO S/S DISTRESS NOTED.
--- NOTE | 2020-06-16 04:04 | NUR ---
I have reviewed this patient and I concur with the Shift Assessment completed by the Licensed Practical Nurse today this shift.
--- NOTE | 2020-06-16 07:20 | NUR ---
RECIEVE REPORT. RESTING IN BED WITH EYES CLOSED. NO SIGNS OF DISTRESS. CONTINUE PLAN OF CARE AND SAFETY PRECAUTIONS.
[2020-06-16 08:30] VITALS: BP 179/74
[2020-06-16 11:27] LABS: CALCIUM 7.2 mg/dL (8.5-10.1); CARBON DIOXIDE 22.4 mmol/L (21.0-32.0); CREATININE - SERUM 0.9 mg/dL (0.6-1.3); POTASSIUM - SERUM 3.2 mmol/L (3.5-5.1); SODIUM 150 mmol/L (136-145); UREA NITROGEN 20 mg/dL (7-18); eGFR NON AFRICAN AMERICAN 86 mL/min (90-120)
[2020-06-16 11:33] LABS: CALC OSMOLALITY 310 mosm/kg (275-300); GLUCOSE 277 mg/dL (74-106); HEMATOCRIT 32.8 % (42.0-54.0); HEMOGLOBIN 10.4 g/dL (13.5-17.5); LYMPHOCYTE ABS# 0.59 10x3/uL (1.32-3.57); MCH 28.7 pg (26.0-34.0); MCHC 31.7 g/dL (31.0-37.0); MCV 90.6 fL (80.0-100.0); MEAN PLATELET VOLUME 11.1 fL (7.4-10.4); NEUTROPHIL ABS# 7.17 10x3/uL (1.78-5.38); PLATELET COUNT 328 10x3/uL (130-400); RBC 3.62 10x6/uL (4.20-6.10); RDW 15.3 % (11.5-14.5); WBC 9.1 10x3/uL (4.8-10.8)
[2020-06-16 11:41] LABS: CHLORIDE - SERUM 117 mmol/L (98-107)
[2020-06-16 13:49] LABS: EOSINOPHILS 4 % (0-7); LYMPHOCYTES 5 % (15-50); MONOCYTES 10 % (2-11); NEUTROPHILS 77 % (40-80); PLATELET ESTIMATE NORMAL; ROULEAUX OCC
[2020-06-16 16:51] VITALS: BP 180/73
[2020-06-16 20:00] VITALS: BP 133/106
[2020-06-17] VITALS: BP 159/91
--- NOTE | 2020-06-17 01:29 | NUR ---
RESTING WITH EYES CLOSED, RESPERATIONS NON LABORED, NO S/S DISTRESS NOTED. BED LOW, CL IN REACH.
[2020-06-17 04:00] VITALS: BP 187/87
--- NOTE | 2020-06-17 04:30 | NUR ---
I have reviewed this patient and I concur with the Shift Assessment completed by the Licensed Practical Nurse today this shift.
[2020-06-17 05:17] LABS: CALCIUM 7.2 mg/dL (8.5-10.1); CARBON DIOXIDE 21.8 mmol/L (21.0-32.0); CREATININE - SERUM 0.7 mg/dL (0.6-1.3); POTASSIUM - SERUM 3.3 mmol/L (3.5-5.1); SODIUM 149 mmol/L (136-145); UREA NITROGEN 18 mg/dL (7-18); eGFR NON AFRICAN AMERICAN > 90 mL/min (90-120)
[2020-06-17 05:33] LABS: CALC OSMOLALITY 297 mosm/kg (275-300); GLUCOSE 104 mg/dL (74-106)
[2020-06-17 05:35] LABS: CHLORIDE - SERUM 117 mmol/L (98-107)
--- NOTE | 2020-06-17 06:23 | NUR ---
OFFICE AUDITOR AT BED SIDE, BATH AND LINEN CHANGE COMPLETE. REPOSITIONED IN BED FOR COMFORT.
[2020-06-17 07:56] VITALS: BP 185/77
[2020-06-17 11:57] VITALS: BP 162/63
--- NOTE | 2020-06-17 13:20 | NUR ---
PT RESTING QUIETLY IN BED, NO S/S OF DISTRESS NOTED AT THIS TIME, PT HAS BEEN ABLE TO TAKE ALL HIS MEDICATIONS CRUSHED UP IN APPLESAUCE WITHOUT DIFFICULTY. BOWEL SOUNDS ARE WNL'S, PULSE'S ARE NOTED WITHOUT ISSUE ON UPPER AND LOWER EXTREMITIES, PT IS MISSING SEVERAL TEETH. PT IS ON ROOM AIR, INCONT OF BOWEL & BLADDER, BOTTOCKS ARE STILL EXCORIATED, AND BEING TREATED. LUNG SOUNDS ARE WNL'S BILATERAL, PUPILS ARE EQUAL AND REACTIVE, PT RESPONSE TO TOUCH AND TALK UPON EACH INTERACTION WITH A YES/NO OR AT TIMES JUST MAKING NOISE. BLOOD SUGAR WAS [address] WALSH TO CHANGE IV LEVAQUIN TO PO. T.O. LEVAQUIN 500 MG PO X'S [address] WALSH. PT TOLERATED 1ST DOSE (CRUSHED IN APPLESAUCE) WITHOUT ANY ISSUES.
--- NOTE | 2020-06-17 15:47 | NUR ---
I have reviewed this patient and I concur with the Shift Assessment completed by the Licensed Practical Nurse today this shift.
[2020-06-17 16:06] VITALS: BP 146/76
--- NOTE | 2020-06-17 18:24 | MORECARE ---
CASE MANAGEMENT DISCHARGE SUMMARY PATIENT: ALEJANDRA PURVIS UNIT: [id number] ADM DATE: 06/10/20 AGE: 80 : 38 SEX: M ROOM/BED: D.2124 AUTHOR: PERI,DOC PHYSICIAN: REFERRING PHYSICIAN: NOLVIA GIBBONS MD DATE OF SERVICE: 06/17/20 Discharge Plan Patient Name: ALEJANDRA PURVIS Facility: [facility]:[place] : 1940 Planned Disposition: Correction Facility Anticipated Discharge Date: Discharge Date: Expected LOS: Initial Reviewer: [id number] Initial Review Date: 06/15/2020 Generated: 06/17/20 7:24 pm Comments DCP- Discharge Planning Updated by [email or web address]: Radha Osorio on 06/17/20 5:[address] FAXED UPDATED CLINICALS TO [facility]. AWAITING TO HEAR FROM [facility] DCP- Discharge Planning Updated by [id number]: Clarisa Wong on 06/15/20 11:[address] CM received a call from Filipe Ochoa from [facility]. He states APS has an open investigation with this patient. They will not take hold until patient is placed in a custodial. They are currently waiting on [employer] to send his bank statements. He states they expect to have the statements by the end of the week. [facility] has accepted the patient for alf care, they just are awaiting bank statements. He tells me the patient has been unable to participate to receive prison therapy. Plan will continue to be [facility] to a exterminator helper care bed. CM will continue to follow and assist with discharge planning/needs. DCP- Discharge Planning Updated by [id number]: Clarisa Wong on 06/15/20 10:[address] Patient Name: ALEJANDRA PURVIS Admission Status: Elective Accout number: [id number] Admission Date: 06-10-2020 : 1940 Admission Diagnosis:COVID-19 Attending: NOLVIA GIBBONS Current LOS: 5 Anticipated DC Date: Planned Disposition: Correction Facility Primary Insurance: [facility] MEDICARE SOLUTIONS Discharge Planning Comments: CM called Filipe Ochoa, patient's APS onsite case manager, at [phone] to discuss discharge planning/needs. I did not receive an answer with Filipe Ochoa and left my call back number on his answering machine. Dr. Gibbons states patient has been accepted to [facility]. I received a DAMASO back today stating NON PASSR patient and faxed that along with updated clinical notes to [facility]. CM will continue to follow and assist with discharge planning/needs. Asp Net Programmer: Clarisa Wong DCP- Discharge Planning Updated by [id number]: Clarisa Wong on 06/15/20 10:[address] DAMASO faxed by [facility] in [facility], awaiting determination. They had approved once, but [facility] states it has . DCPIA - Discharge Planning Initial Assessment Updated by [email or web address]: Clarisa Wong on 06/15/20 11:56 am * Is the patient Alert and Oriented? No * Preadmission Environment Other * Other Environment [facility] inpatient psychiatric unit * Facility Name [facility] * ADLs Total Dependent * List name and contact numbers for known caregivers / representatives who currently or will assist patient after discharge: Filipe Ochoa [facility] - [phone] * Verbal permission to speak to the caregivers and representatives has been obtained from the patient. Yes * Community resources currently utilized APS/CPS * Please name any agencies selected above. Filipe Ochoa * Additional services required to return to the preadmission environment? Yes * Can the patient safely return to the preadmission environment? Yes * Has this patient been hospitalized within the prior 30 days at any hospital? No Coverage Notice Reviewer: [id number] - Clarisa Wong Notice Issued Date-Time: 06/15/2020 12:56 Notice Type: Patient Choice Letter Notice Delivered To: Other Relationship to Patient: Shoemaker Apprentice Name: PEYMAN Moe Delivery Method: PHONE - Phone Maile Days: Prior Verbal Notification: Recipient Understood Notice: Yes Recipient Signature: Med Rec Note Co-signed by Attending: Coverage Notice Comment: [facility] Last DP export: 06/15/20 12:06 pm Patient Name: ALEJANDRA PURVIS Page 19747 at 1824 All edits/amendments must be made on the electronic document DICTATION DATE: 06/17/201823 PEANUT BLANCHER: SABI 06/17/201823 RPT#: [id number] DC DATE: STATUS: ADM IN [facility] [address] [place] [address] END OF REPORT
--- NOTE | 2020-06-17 18:44 | NUR ---
SPOKE WITH DR WALSH CONCERNING IV LEVOQUIN ORDER AND NOT BEING ABLE TO OBTAIN IV ACCESS. DR WALSH GAVE T.O. TO GIVE LEVOQUIN PO INSTEAD AND NOT TO WORRY ABOUT THE IV ACCESS AT THIS TIME.
[2020-06-17 20:00] VITALS: BP 101/62
--- NOTE | 2020-06-17 21:00 | NUR ---
REPORT RECEIVED, WILL CONT POC. PT A&CONFUSED. NO S/S OF DISTRESS OBSERVED. RR EVEN & UNLABORED ON RA. BED LOCKED AND LOWERED, CL IN REACH. ASSESSMENT COMPLETED AT THIS TIME. WILL CONT TO MONITOR.
[2020-06-18 04:00] VITALS: BP 129/47
[2020-06-18 07:10] LABS: BASOPHILS 0.2 % (0-2); EOSINOPHILS 4.7 % (0-7); HEMATOCRIT 30.9 % (42.0-54.0); HEMOGLOBIN 9.9 g/dL (13.5-17.5); IMMATURE GRANULOCYTES 0.6 % (0-5); LYMPHOCYTE ABS# 0.41 10x3/uL (1.32-3.57); MCH 28.5 pg (26.0-34.0); MONOCYTES 6.2 % (2-11); NEUTROPHIL ABS# 6.84 10x3/uL (1.78-5.38); NEUTROPHILS 83.3 % (40-80); PLATELET COUNT 284 10x3/uL (130-400); RBC 3.47 10x6/uL (4.20-6.10); WBC 8.2 10x3/uL (4.8-10.8)
[2020-06-18 08:11] LABS: PHOSPHOROUS 2.8 mg/dL (2.5-4.9)
[2020-06-18 08:27] VITALS: BP 177/59
[2020-06-18 11:50] VITALS: BP 170/54
--- NOTE | 2020-06-18 12:49 | NUR ---
Nutrition Reassessent/Follow-up: Pt in droplet isolation. Confused. Noted pt with no appetite yesterday. Has to be fed. Awaiting placement. Diet: Regular, Pureed with Thickened Liquids (pleasure feeding) PO intake: 60% avg x 8 meals (06/15-06/17) No new wt; last wt: 146# (06/11) Labs noted: Glu 110 Meds noted: Florajen, MagOx, KDur, Lantus, Humalog, electrolyte protocol -Nutrition needs unchanged; no new wt available. -Encourage PO intake and honor food preferences within diet restrictions. -Offer nutrition supplements. -MD may consider appetite stimulant. -Need new wt. -RD will follow up within 4-5 days.
--- NOTE | 2020-06-18 17:00 | MORECARE ---
CASE MANAGEMENT DISCHARGE SUMMARY PATIENT: ALEJANDRA PURVIS UNIT: [id number] ADM DATE: 06/10/20 AGE: 80 : 38 SEX: M ROOM/BED: D.1174 AUTHOR: PERI,DOC PHYSICIAN: REFERRING PHYSICIAN: NOLVIA GIBBONS MD DATE OF SERVICE: 06/18/20 Discharge Plan Patient Name: ALEJANDRA PURVIS Facility: [facility]:[place] : 1940 Planned Disposition: Residential Facility Anticipated Discharge Date: Discharge Date: Expected LOS: Initial Reviewer: [id number] Initial Review Date: 06/15/2020 Generated: 06/18/20 5:59 pm Comments DCP- Discharge Planning Updated by [email or web address]: Charity Milton on 06/18/20 3:[address] 1216 CM CALLED APS WORKER, TYREL OCHOA, AND LEFT VM MESSAGE REGARDING UPDATE. MANOJ CALIXTO , SPOKE WITH HIM WHEN HE CALLED BACK. HE WILL FORWARD THE [employer] STATEMENTS TO [facility]. 1430 CM CALLED [facility] AND SPOKE W/ REINALDO. MR OCHOA HAD CALLED THIS PM. HE WILL BRING STATEMENTS TO HER TOMORROW. SHE ASK FOR A CLINICAL UPDATE. IF BANK STATEMENTS ARE RECEIVED AND AFTER REVIEW OF CLINICAL THE PATIENT MAYBE ADMITTED 06/19/20. CLINICAL UPDATE FAXED TO [phone] DIRECTED.CM TO FOLLOW IN THE AM. DCP- Discharge Planning Updated by [id number]: Radha Osorio on 06/17/20 5:[address] FAXED UPDATED CLINICALS TO [facility] AWAITING TO HEAR FROM [facility] DCP- Discharge Planning Updated by [id number]: Clarisa Wong on 06/15/20 11:[address] CM received a call from Tyrel Ochoa from [facility]. He states [facility] has an open investigation with this patient. They will not take hold until patient is placed in a mcc. They are currently waiting on [employer] to send his bank statements. He states they expect to have the statements by the end of the week. [facility] has accepted the patient for usp care, they just are awaiting bank statements. He tells me the patient has been unable to participate to receive alf therapy. Plan will continue to be [facility] to a global recruiter care bed. CM will continue to follow and assist with discharge planning/needs. DCP- Discharge Planning Updated by [id number]: Clarisa Wong on 06/15/20 10:[address] Patient Name: ALEJANDRA PURVIS Admission Status: Elective Accout number: [id number] Admission Date: 06-10-2020 : 1940 Admission Diagnosis:COVID-19 Attending: NOLVIA GIBBONS Current LOS: 5 Anticipated DC Date: Planned Disposition: Residential Facility Primary Insurance: [facility] MEDICARE SOLUTIONS Discharge Planning Comments: CM called Tyrel Ochoa, patient's APS block and case maker, at [phone] to discuss discharge planning/needs. I did not receive an answer with Tyrel Ochoa and left my call back number on his answering machine. Dr. Gibbons states patient has been accepted to [facility]. I received a DAMASO back today stating NON PASSR patient and faxed that along with updated clinical notes to [facility]. CM will continue to follow and assist with discharge planning/needs. Building And Grounds Supervisor: Clarisa Wong DCP- Discharge Planning Updated by [id number]: Clarisa Wong on 06/15/20 10:[address] DAMASO faxed by Gertrude in [facility], awaiting determination. They had approved once, but Gertrude states it has . DCPIA - Discharge Planning Initial Assessment Updated by [id number]: Clarisa Wong on 06/15/20 11:56 am * Is the patient Alert and Oriented? No * Preadmission Environment Other * Other Environment [facility] inpatient psychiatric unit * Facility Name [facility] * ADLs Total Dependent * List name and contact numbers for known caregivers / representatives who currently or will assist patient after discharge: Tyrel Ochoa [facility] - [phone] * Verbal permission to speak to the caregivers and representatives has been obtained from the patient. Yes * Community resources currently utilized APS/CPS * Please name any agencies selected above. Tyrel Ochoa * Additional services required to return to the preadmission environment? Yes * Can the patient safely return to the preadmission environment? Yes * Has this patient been hospitalized within the prior 30 days at any hospital? No Coverage Notice Reviewer: [id number] - Clarisa Wong Notice Issued Date-Time: 06/15/2020 12:56 Notice Type: Patient Choice Letter Notice Delivered To: Other Relationship to Patient: Motion Picture Operator Name: PEYMAN Moe Delivery Method: PHONE - Phone Maile Days: Prior Verbal Notification: Recipient Understood Notice: Yes Recipient Signature: Med Rec Note Co-signed by Attending: Coverage Notice Comment: [facility] Last DP export: 06/17/20 5:24 pm Patient Name: ALEJANDRA PURVIS Page [id number] at 1700 All edits/amendments must be made on the electronic document DICTATION DATE: 06/18/201658 FORGER HELPER: SABI 06/18/201658 RPT#: [id number] DC DATE: STATUS: ADM IN [facility] [address] [place] [address] END OF REPORT
--- NOTE | 2020-06-18 17:18 | NUR ---
PT TO BE ON DROPLET PRECAUTION UNTIL JULY 02, 2020. PER INFECTION CONTROL.
[2020-06-18 20:46] VITALS: BP 136/30
--- NOTE | 2020-06-18 21:47 | NUR ---
LYING IN BED AWAKE, ALERT, CONFUSED. WATCHING TV. NO NEEDS VOICED. RESP EVEN AND UNLABORED ON RA. NO DISTRESS NOTED.
--- NOTE | 2020-06-19 05:39 | NUR ---
LYING IN BED W/EYES CLOSED, AROUSES EASILY W/VERBAL STIMULI. RESP EVEN AND UNLABORED ON RA. PT HAS RESTED WELL TONIGHT--LARGE BM NOTED--RELEASE SPECIALIST'S IN ROOM ASSISTING W/CLEANING AND CHANGING. NO DISTRESS NOTED.
[2020-06-19 08:03] VITALS: BP 113/59
[2020-06-19] MEDS ORDERED: COMBIVENT RESPIM4 GM INH (09:55)
[2020-06-19] MEDS ORDERED: LEVOFLOXACIN500 MG PO (09:55)
[2020-06-19] MEDS ORDERED: CATAPRES TTS-20.2 MG TRANSDERM (09:56)
[2020-06-19] MEDS ORDERED: K-DUR20 MEQ PO (09:58)
[2020-06-19] MEDS ORDERED: FLORAJEN3 CAPS460 MG PO (09:58)
[2020-06-19] MEDS ORDERED: LANTUS INS100 UNITS/ SC (09:59)
[2020-06-19 11:46] VITALS: BP 167/61
[2020-06-19 15:56] VITALS: BP 132/49
--- NOTE | 2020-06-19 16:46 | NUR ---
RESTING IN BED. YELLS OUT EVERY ONCE IN A WHILE. NO CHANGES NOTED. AWAITING PLACEMENT
[2020-06-19 20:00] VITALS: BP 125/30
--- NOTE | 2020-06-19 21:30 | NUR ---
PATIENT SUPINE IN BED. NO S/S OF DISTRESS. CLEAN AND DRY. CLIR. DOOR AJAR. BED IN LOWEST POSITION. WILL CONT TO MONITOR.
[2020-06-20] VITALS: BP 115/49
--- NOTE | 2020-06-20 02:00 | NUR ---
PATIENT INCONTINENT OF BOWEL AND BLADDER. PATIENT CLEANED AND LINENS CHANGED.
[2020-06-20 04:00] VITALS: BP 145/74
[2020-06-20 07:00] VITALS: BP 114/52
[2020-06-20 15:55] VITALS: BP 120/53
[2020-06-20 20:50] VITALS: BP 134/30
[2020-06-21 01:21] VITALS: BP 112/35
[2020-06-21 05:17] VITALS: BP 187/71
[2020-06-21 07:00] VITALS: BP 162/78
--- NOTE | 2020-06-21 07:20 | NUR ---
RECIEVE REPORT. CONFUSED. BEDFAST. NO SIGNS OF DISTRESS. CONTINUE PLAN OF CARE AND SAFETY PRECAUTIONS.
[2020-06-21 17:13] VITALS: BP 177/69
[2020-06-21 20:00] VITALS: BP 146/40
--- NOTE | 2020-06-21 21:30 | NUR ---
PATIENT LYING IN BED. NO S/S OF DISTRESS. ASSESSMENT COMPLETE. WILL CONT TO MONITOR.
--- NOTE | 2020-06-22 03:04 | NUR ---
PATIENT LYING IN BED. TURNED TO RIGHT SIDE. CLEAN AND DRY. WILL CONT TO MONITOR.
[2020-06-22 03:45] VITALS: BP 123/55
--- NOTE | 2020-06-22 07:20 | NUR ---
RECIEVE REPORT. RESTING IN BED WITH EYES CLOSED. NO SIGNS OF DISTRESS. WAITING FOR JAIL PLACEMENT. CONTINUE PLAN OF CARE AND SAFETY PRECAUTIONS.
[2020-06-22 08:26] VITALS: BP 153/56
--- NOTE | 2020-06-22 13:53 | NUR ---
Nutrition Follow-up: Pt in droplet isolation. Eating better. Noted plans to d/c. Diet: Regular, Pureed with Thickened Liquids PO intake: 80% avg x 3 meals yesterday No new wt; last wt: 146# (06/11) Labs noted: Glu 141 Meds noted: Florajen, MagOx, KDur, electrolyte protocol -Encourage PO intake and honor food preferences within diet restrictions. -Need new wt. -RD will follow up within 4 days if pt still admitted.
--- NOTE | 2020-06-22 16:24 | NUR ---
ALERT AND CONFUSED. REPORT CALLED TO OPAL BROWN AT [facility]. [facility] CALLED AT 1515 AND AGAIN NOW FOR UPDATE OF ARRIVAL. JT AT [facility] REPORTS ETF 30-45mins. CONTINUE PLAN OF CARE AND SAFETY PRECAUTIONS.
--- NOTE | 2020-06-22 17:54 | NUR ---
[facility] ARRIVES FOR TRANSPORTATION TO [facility].
--- NOTE | 2020-06-23 05:52 | MORECARE ---
CASE MANAGEMENT DISCHARGE SUMMARY PATIENT: ALEJANDRA PURVIS UNIT: [id number] ADM DATE: 06/10/20 AGE: 80 : 38 SEX: M ROOM/BED: D.2124 AUTHOR: PERI,DOC PHYSICIAN: REFERRING PHYSICIAN: NOLVIA GIBBONS MD DATE OF SERVICE: 06/23/20 Discharge Plan Patient Name: ALEJANDRA PURVIS Facility: [facility]:[place] : 1940 Planned Disposition: Shelter Facility Anticipated Discharge Date: Discharge Date: 06/22/2020 Expected LOS: Initial Reviewer: [id number] Initial Review Date: 06/15/2020 Generated: 06/23/20 6:51 am Comments DCP- Discharge Planning Updated by [email or web address]: Charity Milton on 06/18/20 3:[address] 1216 CM CALLED APS WORKER, TYREL OCHOA, AND LEFT VM MESSAGE REGARDING UPDATE. MANOJ CALIXTO , SPOKE WITH HIM WHEN HE CALLED BACK. HE WILL FORWARD THE [place] STATEMENTS TO [facility]. 1430 CM CALLED [facility] AND SPOKE W/ REINALDO. MR EDDA HAD CALLED THIS PM. HE WILL BRING STATEMENTS TO HER TOMORROW. SHE ASK FOR A CLINICAL UPDATE. IF BANK STATEMENTS ARE RECEIVED AND AFTER REVIEW OF CLINICAL THE PATIENT MAYBE ADMITTED 06/19/20. CLINICAL UPDATE FAXED TO [phone] DIRECTED.CM TO FOLLOW IN THE AM. DCP- Discharge Planning Updated by [id number]: Radha Osorio on 06/17/20 5:[address] FAXED UPDATED CLINICALS TO [facility] AWAITING TO HEAR FROM [facility] DCP- Discharge Planning Updated by [id number]: Clarisa Wong on 06/15/20 11:[address] CM received a call from Tyrel Ochoa from [facility]. He states [facility] has an open investigation with this patient. They will not take hold until patient is placed in a care home. They are currently waiting on [employer] to send his bank statements. He states they expect to have the statements by the end of the week. [facility] has accepted the patient for prison care, they just are awaiting bank statements. He tells me the patient has been unable to participate to receive long term therapy. Plan will continue to be [facility] to a termite exterminator helper care bed. CM will continue to follow and assist with discharge planning/needs. DCP- Discharge Planning Updated by [id number]: Clarisa Wong on 06/15/20 10:[address] Patient Name: ALEJANDRA PURVIS Admission Status: Elective Accout number: [id number] Admission Date: 06-10-2020 : 1940 Admission Diagnosis:COVID-19 Attending: NOLVIA GIBBONS Current LOS: 5 Anticipated DC Date: Planned Disposition: Shelter Facility Primary Insurance: [facility] MEDICARE SOLUTIONS Discharge Planning Comments: CM called Tyrel Ochoa, patient's APS heel caser, at [phone] to discuss discharge planning/needs. I did not receive an answer with Tyrel Ochoa and left my call back number on his answering machine. Dr. Gibbons states patient has been accepted to [facility]. I received a DAMASO back today stating NON PASSR patient and faxed that along with updated clinical notes to [facility]. CM will continue to follow and assist with discharge planning/needs. Entertainment Production Professional: Clarisa Wong DCP- Discharge Planning Updated by [email or web address]: Clarisa Wong on 06/15/20 10:[address] DAMASO faxed by Gertrude in [facility], awaiting determination. They had approved once, but [facility] states it has . DCPIA - Discharge Planning Initial Assessment Updated by [id number]: Clarisa Wong on 06/15/20 11:56 am * Is the patient Alert and Oriented? No * Preadmission Environment Other * Other Environment [facility] inpatient psychiatric unit * Facility Name [facility] * ADLs Total Dependent * List name and contact numbers for known caregivers / representatives who currently or will assist patient after discharge: Tyrel Ochoa [facility] - [phone] * Verbal permission to speak to the caregivers and representatives has been obtained from the patient. Yes * Community resources currently utilized APS/CPS * Please name any agencies selected above. Tyrel Ochoa * Additional services required to return to the preadmission environment? Yes * Can the patient safely return to the preadmission environment? Yes * Has this patient been hospitalized within the prior 30 days at any hospital? No Coverage Notice Reviewer: [id number] - Clarisa Wong Notice Issued Date-Time: 06/15/2020 12:56 Notice Type: Patient Choice Letter Notice Delivered To: Other Relationship to Patient: Rack Loader Name: Tyrel Ochoa PEYMAN Delivery Method: PHONE - Phone Maile Days: Prior Verbal Notification: Recipient Understood Notice: Yes Recipient Signature: Med Rec Note Co-signed by Attending: Coverage Notice Comment: [facility] Last DP export: 06/18/20 4:00 pm Patient Name: ALEJANDRA PURVIS Page [id number] at 0552 All edits/amendments must be made on the electronic document DICTATION DATE: 06/23/2052 GUITAR TECHNICIAN: SABI 06/23/20 0552 RPT#: [id number] DC DATE:06/22/20 STATUS: DIS IN [facility] [address] [place] [address] END OF REPORT
--- NOTE | 2020-06-23 23:26 | MORECARE ---
CASE MANAGEMENT DISCHARGE SUMMARY PATIENT: ALEJANDRA PURVIS UNIT: [id number] ADM DATE: 06/10/20 AGE: 80 : 38 SEX: M ROOM/BED: D.2124 AUTHOR: PERI,DOC PHYSICIAN: REFERRING PHYSICIAN: NOLVIA GIBBONS MD DATE OF SERVICE: 06/23/20 Discharge Plan Patient Name: ALEJANDRA PURVIS Facility: [facility]:[place] : 1940 Planned Disposition: Penitentiary Facility Anticipated Discharge Date: Discharge Date: 06/22/2020 Expected LOS: Initial Reviewer: [id number] Initial Review Date: 06/15/2020 Generated: 06/24/20 12:26 am Comments DCP- Discharge Planning Updated by [email or web address]: Radha Osorio on 06/23/20 10:[address] LATE ENTRY 06/19/20 CM called [facility] and spoke with Reinaldo and she stated that they still have not received financials from APS worker. CM called Tyrel Ochoa APS worker and left message. CM called back to [facility] and left message x 2 and left message for Tyrel again as well. Discharge on hold until financials are delivered. DCP- Discharge Planning Updated by [email or web address]: Charity Milton on 06/18/20 3:[address] 1216 CM CALLED APS WORKER, TYREL OCHOA, AND LEFT VM MESSAGE REGARDING UPDATE. MANOJ CALIXTO , SPOKE WITH HIM WHEN HE CALLED BACK. HE WILL FORWARD THE [employer] STATEMENTS TO [facility]. 1430 CM CALLED NR AND SPOKE W/ REINALOD. MR OCHOA HAD CALLED THIS PM. HE WILL BRING STATEMENTS TO HER TOMORROW. SHE ASK FOR A CLINICAL UPDATE. IF BANK STATEMENTS ARE RECEIVED AND AFTER REVIEW OF CLINICAL THE PATIENT MAYBE ADMITTED 06/19/20. CLINICAL UPDATE FAXED TO [phone] DIRECTED.CM TO FOLLOW IN THE AM. DCP- Discharge Planning Updated by [id number]: Radha Osorio on 06/17/20 5:[address] FAXED UPDATED CLINICALS TO [facility] AWAITING TO HEAR FROM APS DCP- Discharge Planning Updated by [email or web address]: Clarisa Wong on 06/15/20 11:[address] CM received a call from Tyrel Ochoa from [facility]. He states [facility]PS has an open investigation with this patient. They will not take hold until patient is placed in a alf. They are currently waiting on [employer] to send his bank statements. He states they expect to have the statements by the end of the week. [facility] has accepted the patient for mcc care, they just are awaiting bank statements. He tells me the patient has been unable to participate to receive nursing home therapy. Plan will continue to be [facility] to a mcc care bed. CM will continue to follow and assist with discharge planning/needs. DCP- Discharge Planning Updated by [id number]: Clarisa Wong on 06/15/20 10:[address] Patient Name: ALEJANDRA PURVIS Admission Status: Elective Accout number: [id number] Admission Date: 06-10-2020 : 1940 Admission Diagnosis:COVID-19 Attending: NOLVIA GIBBONS Current LOS: 5 Anticipated DC Date: Planned Disposition: Penitentiary Facility Primary Insurance: [facility] MEDICARE SOLUTIONS Discharge Planning Comments: CM called Tyrel Ochoa, patient's APS case therapist, at [phone] to discuss discharge planning/needs. I did not receive an answer with Tyrel Ochoa and left my call back number on his answering machine. Dr. Gibbons states patient has been accepted to [facility]. I received a DAMASO back today stating NON PASSR patient and faxed that along with updated clinical notes to [facility]. CM will continue to follow and assist with discharge planning/needs. Grant Writer: Clarisa Wong DCP- Discharge Planning Updated by [id number]: Clarisa Wong on 06/15/20 10:[address] DAMASO faxed by Gertrude in [facility], awaiting determination. They had approved once, but [facility] states it has . DCPIA - Discharge Planning Initial Assessment Updated by [email or web address]: Clarisa Wong on 06/15/20 11:56 am * Is the patient Alert and Oriented? No * Preadmission Environment Other * Other Environment [facility] inpatient psychiatric unit * Facility Name [facility] * ADLs Total Dependent * List name and contact numbers for known caregivers / representatives who currently or will assist patient after discharge: Tyrel Ochoa [facility] - [phone] * Verbal permission to speak to the caregivers and representatives has been obtained from the patient. Yes * Community resources currently utilized APS/CPS * Please name any agencies selected above. Tyrel Ochoa * Additional services required to return to the preadmission environment? Yes * Can the patient safely return to the preadmission environment? Yes * Has this patient been hospitalized within the prior 30 days at any hospital? No Coverage Notice Reviewer: [id number] Patricia Wong Notice Issued Date-Time: 06/15/2020 12:56 Notice Type: Patient Choice Letter Notice Delivered To: Other Relationship to Patient: Railroad Car Truck Builder Name: Tyrel OchoaPEYMAN Delivery Method: PHONE - Phone Maile Days: Prior Verbal Notification: Recipient Understood Notice: Yes Recipient Signature: Med Rec Note Co-signed by Attending: Coverage Notice Comment: [facility] Last DP export: 06/23/20 4:52 am Patient Name: ALEJANDRA PURVIS Page 60150 at 2326 All edits/amendments must be made on the electronic document DICTATION DATE: 06/23/206 FILM PROJECTOR OPERATOR: SABI 06/23/20 2326 RPT#: [id number] DC DATE:06/22/20 STATUS: DIS IN [facility] [address] [place] [address] END OF REPORT
--- NOTE | 2020-06-23 23:39 | MORECARE ---
CASE MANAGEMENT DISCHARGE SUMMARY PATIENT: ALEJANDRA PURVIS UNIT: [id number] ADM DATE: 06/10/20 AGE: 80 : 38 SEX: M ROOM/BED: D.2124 AUTHOR: PERI,DOC PHYSICIAN: REFERRING PHYSICIAN: NOLVIA GIBBONS MD DATE OF SERVICE: 06/23/20 Discharge Plan Patient Name: ALEJANDRA PURVIS Facility: [facility]:[place] : 1940 Planned Disposition: Retirement Facility Anticipated Discharge Date: Discharge Date: 06/22/2020 Expected LOS: Initial Reviewer: [email or web address] Initial Review Date: 06/15/2020 Generated: 06/24/20 12:38 am Comments DCP- Discharge Planning Updated by [email or web address]: Radha Osorio on 06/23/20 10:[address] LATE ENTRY 06/22/20 MANOJ called and spoke with Tyrel with APS and explained that [facility] stating that they have not received financial information. He stated that he would take care of it and call back. CM received a call from Reinaldo at [facility]. She stated that they had everything they needed and patient could discharge, Nursing to call report and set up ambulance transfer to facility. DCP- Discharge Planning Updated by [email or web address]: Radha Osorio on 06/23/20 10:[address] LATE ENTRY 06/19/20 CM called [facility] and spoke with Reinaldo and she stated that they still have not received financials from APS worker. CM called Tyrel Ochoa APS worker and left message. CM called back to [facility] and left message x 2 and left message for Tyrel again as well. Discharge on hold until financials are delivered. DCP- Discharge Planning Updated by [id number]: Charity Milton on 06/18/20 3:[address] 1216 CM CALLED APS WORKER, TYREL OCHOA, AND LEFT VM MESSAGE REGARDING UPDATE. MANOJ CALIXTO , SPOKE WITH HIM WHEN HE CALLED BACK. HE WILL FORWARD THE [employer] STATEMENTS TO [facility]. 1430 CM CALLED [facility] AND SPOKE W/ REINALDO. MR OCHOA HAD CALLED THIS PM. HE WILL BRING STATEMENTS TO HER TOMORROW. SHE ASK FOR A CLINICAL UPDATE. IF BANK STATEMENTS ARE RECEIVED AND AFTER REVIEW OF CLINICAL THE PATIENT MAYBE ADMITTED 06/19/20. CLINICAL UPDATE FAXED TO [phone] DIRECTED.CM TO FOLLOW IN THE AM. DCP- Discharge Planning Updated by [id number]: Radha Osorio on 06/17/20 5:[address] FAXED UPDATED CLINICALS TO [facility] AWAITING TO HEAR FROM [facility] DCP- Discharge Planning Updated by [id number]: Clarisa Wong on 06/15/20 11:[address] CM received a call from Tyrel Ochoa from [facility]. He states APS has an open investigation with this patient. They will not take hold until patient is placed in a alf. They are currently waiting on [employer] to send his bank statements. He states they expect to have the statements by the end of the week. [facility] has accepted the patient for intermodal owner operator truck driver care, they just are awaiting bank statements. He tells me the patient has been unable to participate to receive care home therapy. Plan will continue to be [facility] to a intermodal owner operator truck driver care bed. CM will continue to follow and assist with discharge planning/needs. DCP- Discharge Planning Updated by [id number]: Clarisa Wong on 06/15/20 10:[address] Patient Name: ALEJANDRA PURVIS Admission Status: Elective Accout number: [id number] Admission Date: 06-10-2020 : 1940 Admission Diagnosis:COVID-19 Attending: NOLVIA GIBBONS Current LOS: 5 Anticipated DC Date: Planned Disposition: Retirement Facility Primary Insurance: [facility] MEDICARE SOLUTIONS Discharge Planning Comments: CM called Tyrel Ochoa, patient's APS case hardener, at [phone] to discuss discharge planning/needs. I did not receive an answer with Tyrel Ochoa and left my call back number on his answering machine. Dr. Gibbons states patient has been accepted to [facility]. I received a DAMASO back today stating NON PASSR patient and faxed that along with updated clinical notes to [facility]. CM will continue to follow and assist with discharge planning/needs. Manager Resource: Clarisa Wong DCP- Discharge Planning Updated by [id number]: Clarisa Wong on 06/15/20 10:[address] DAMASO faxed by [facility] in [facility], awaiting determination. They had approved once, but [facility] states it has . DCPIA - Discharge Planning Initial Assessment Updated by [email or web address]: Clarisa Gomezdiana on 06/15/20 11:56 am * Is the patient Alert and Oriented? No * Preadmission Environment Other * Other Environment [facility] inpatient psychiatric unit * Facility Name [facility] * ADLs Total Dependent * List name and contact numbers for known caregivers / representatives who currently or will assist patient after discharge: Tyrel Ochoa APS - [phone] * Verbal permission to speak to the caregivers and representatives has been obtained from the patient. Yes * Community resources currently utilized APS/CPS * Please name any agencies selected above. Tyrel Ochoa * Additional services required to return to the preadmission environment? Yes * Can the patient safely return to the preadmission environment? Yes * Has this patient been hospitalized within the prior 30 days at any hospital? No Coverage Notice Reviewer: [id number] - Clarisa Wong Notice Issued Date-Time: 06/15/2020 12:56 Notice Type: Patient Choice Letter Notice Delivered To: Other Relationship to Patient: Changeover Operator Name: Tyrel Ochoa, APS Delivery Method: PHONE - Phone Maile Days: Prior Verbal Notification: Recipient Understood Notice: Yes Recipient Signature: Med Rec Note Co-signed by Attending: Coverage Notice Comment: [facility] Reviewer: [id number] Patricia Osorio Notice Issued Date-Time: 06/22/2020 11:35 Notice Type: IM Discharge Notice Notice Delivered To: Other Relationship to Patient: Changeover Operator Name: Tyrel Ochoa APS Delivery Method: PHONE - Phone Maile Days: Prior Verbal Notification: Yes Recipient Understood Notice: Yes Recipient Signature: Med Rec Note Co-signed by Attending: Coverage Notice Comment: Last DP export: 06/23/20 10:26 pm Patient Name: ALEJANDRA PURVIS Page 04655 at 2339 All edits/amendments must be made on the electronic document DICTATION DATE: 06/23/202338 ASSISTANT COACH: SABI 06/23/209 RPT#: [id number] DC DATE:06/22/20 STATUS: DIS [facility] [address] [facility] [address] END OF REPORT
== END 2020-06-22 17:55 | DRG 177 ==
LOC: D.M2 17:59
PROVIDERS: Internal Medicine Pulmonary Disease; ADMIT Family Medicine; ATTEND Family Medicine
DX: U07.1 COVID-19 (principal); J12.82 Pneumonia due to coronavirus disease 2019; F01.51 Vascular dementia, unspecified severity, with behavioral disturbance; N17.9 Acute kidney failure, unspecified; E44.0 Moderate protein-calorie malnutrition; I69.319 Unspecified symptoms and signs involving cognitive functions following cerebral infarction; E11.9 Type 2 diabetes mellitus without complications; I11.0 Hypertensive heart disease with heart failure; I50.9 Heart failure, unspecified; E78.5 Hyperlipidemia, unspecified; F41.8 Other specified anxiety disorders; F13.10 Sedative, hypnotic or anxiolytic abuse, uncomplicated; E55.9 Vitamin D deficiency, unspecified; G89.29 Other chronic pain; Z68.23 Body mass index [BMI] 23.0-23.9, adult; D64.9 Anemia, unspecified; E87.6 Hypokalemia

== ENCOUNTER 2020-07-20 09:30 | Emergency (ER) | payer MEDICARE, MEDICAID ==
[~2020-07-20 09:30] MED LIST changes: +CATAPRES TTS-20.2 MG TRANSDERM; +COMBIVENT RESPIM4 GM INH; +FLORAJEN3 CAPS460 MG PO; +K-DUR20 MEQ PO; +LANTUS INS100 UNITS/ SC
[2020-07-20 10:30] LABS: BASOPHILS 0.2 % (0-2); EOSINOPHILS 0.6 % (0-7); HEMATOCRIT 37.1 % (42.0-54.0); HEMOGLOBIN 11.1 g/dL (13.5-17.5); IMMATURE GRANULOCYTES 2.1 % (0-5); LYMPHOCYTE ABS# 1.99 10x3/uL (1.32-3.57); LYMPHOCYTES 20.5 % (15-50); MCH 28.9 pg (26.0-34.0); MCHC 29.9 g/dL (31.0-37.0); MCV 96.6 fL (80.0-100.0); MEAN PLATELET VOLUME 10.8 fL (7.4-10.4); MONOCYTES 3.2 % (2-11); NEUTROPHIL ABS# 7.14 10x3/uL (1.78-5.38); NEUTROPHILS 73.4 % (40-80); PLATELET COUNT 177 10x3/uL (130-400); RBC 3.84 10x6/uL (4.20-6.10); WBC 9.7 10x3/uL (4.8-10.8)
[2020-07-20 10:44] LABS: ALT (SGPT) 49 U/L (10-68); CALCIUM 8.3 mg/dL (8.5-10.1); CARBON DIOXIDE 17.3 mmol/L (21.0-32.0); CHOLESTEROL, TOTAL 115 mg/dL (0-200); CREATININE - SERUM 2.3 mg/dL (0.6-1.3); GLUCOSE 75 mg/dL (74-106); HDL CHOLESTEROL 38 mg/dL (32-96); LDL CHOLESTEROL 62 mg/dL (0-100); LDL-HDL RATIO 1.6 ratio (1.5-3.5); POTASSIUM - SERUM 3.9 mmol/L (3.5-5.1); TRIGLYCERIDE 78 mg/dL (30-200); UREA NITROGEN 52 mg/dL (7-18); eGFR NON AFRICAN AMERICAN 29 mL/min (90-120)
[2020-07-20 10:51] LABS: CALC OSMOLALITY 329 mosm/kg (275-300)
[2020-07-20 10:53] LABS: SODIUM 160 mmol/L (136-145)
[2020-07-20 10:54] LABS: CHLORIDE - SERUM 122 mmol/L (98-107)
== END 2020-07-20 10:20 | disposition other institution (70) ==
LOC: D.ER 09:30
PROVIDERS: Internal Medicine Interventional Cardiology
DX: I21.3 ST elevation (STEMI) myocardial infarction of unspecified site (principal); I46.9 Cardiac arrest, cause unspecified; E86.0 Dehydration; E87.2 Acidosis; E87.0 Hyperosmolality and hypernatremia; E11.9 Type 2 diabetes mellitus without complications; I50.9 Heart failure, unspecified; N40.0 Benign prostatic hyperplasia without lower urinary tract symptoms; F03.90 Unspecified dementia, unspecified severity, without behavioral disturbance, psychotic disturbance, mood disturbance, and anxiety; J96.90 Respiratory failure, unspecified, unspecified whether with hypoxia or hypercapnia; E83.51 Hypocalcemia; R57.0 Cardiogenic shock